=== PATIENT | female | born 1965 | race Caucasian/White ===

== ENCOUNTER 2020-11-17 18:46 | Emergency (ER) | payer MEDICARE, SELFPAY ==
--- NOTE | 2020-11-17 19:28 | PC.NURSE ---
Patient states she is leaving, and is not coming back. Patient requests to be moved off the list. Patient left ED with her belongings and ambulated with a steady gait.
== END 2020-11-18 03:15 | disposition left against medical advice (07) ==
PROVIDERS: PCP Internal Medicine
DX: Z53.21 Procedure and treatment not carried out due to patient leaving prior to being seen by health care provider (principal)
CPT/HCPCS: 99199

== ENCOUNTER 2020-11-18 11:28 | Inpatient (IN) | payer MEDICARE, SELFPAY ==
[2020-11-18] VITALS (7 sets, daily range): BP systolic 125–131; BP diastolic 83–92; PULSE 76–98; RESP 16–20; TEMP 36.7–37.8; O2SAT 98–100
--- NOTE | ~2020-11-18 | CT_ITS ---
EXAMINATION: CT abdomen pelvis w con EXAM DATE: 11/18/2020 13:50 INDICATION: Right flank pain. TECHNIQUE: Spiral CT of the abdomen and pelvis was performed following intravenous injection of 100 m L Omnipaque 350. Axial, coronal and sagittal images of the abdomen and pelvis were reviewed. The do se-length product (DLP) for this examination was 262.01 mGy-cm. The exposure was tailored according to patient size (auto mA exposure control), and iterative reconstruction (ASIR) was used as additiona l dose reduction technique. There is no prior study for comparison. FINDINGS: There is right adrenal gland lesion measuring 2 cm statistically most likely adenoma but no t meeting density criteria on this examination. There is a smaller similar-appearing left adrenal les ion measuring 1.0 cm. The liver, spleen and pancreas are unremarkable. Gallbladder is unremarkable. No biliary obstruction. Small regions of heterogeneous right renal cortical enhancement, could indicate acute pyelonephritis. Please correlate with urinalysis. There is mild fat stranding surrounding the right kidney and mildl y enhancing urothelium to support this diagnosis. The uterus is not identified and has likely been islas rgically resected. The bladder is unremarkable. There is no retroperitoneal or pelvic lymphadenopat hy. There is mild scattered arteriosclerotic disease. The appendix is normal. The stomach and small bowel are unremarkable. There is expected amount of c olonic stool. No free intraperitoneal gas. The heart is normal in size. There are no pericardial or pleural effusions. The lung bases are unremarkable. Their is mild lumbar dextroscoliosis. There are no osteoblastic or osteolytic lesions identified. IMPRESSION: 1. Right kidney upper UTI and acute pyelonephritis. 2. Bilateral adrenal nodules most likely adenomas. Reviewed, dictated and finalized at location A.
[2020-11-18 11:44] LABS: Basophils Absolute Auto 0.1 K/mm3 (0.0-0.1); Basophils Percent Auto 0.3 % (0.2-1.2); Eosinophils Percent Auto 0.1 % (0-4.4); Hematocrit 44.8 % (37.0-47.0); Hemoglobin 15.1 g/dL (12.0-15.0); Immature Granulocyte Absolute 0.11 K/mm3 (0.00-0.031); Immature Granulocyte Percent A 0.4 % (0-0.5); Lymphocytes Absolute Auto 2.36 K/mm3 (0.9-3.2); Lymphocytes Percent Auto 9.2 % (18.3-44.2); Mean Corpuscular HGB Conc 33.7 g/dl (32-36); Mean Corpuscular Hemoglobin 31.9 pg (26-34); Mean Corpuscular Volume 94.7 fl (80-100); Mean Platelet Volume 9.4 fl (7.4-10.4); Monocytes Absolute Auto 1.6 K/mm3 (0.1-0.6); Monocytes Percent Auto 6.3 % (2.6-8.5); Neutrophils Absolute Auto 21.6 K/mm3 (1.3-6.7); Neutrophils Percent Auto 83.7 % (45.5-73.1); Platelet Count Result 285 k/mm3 (150-375); Red Blood Count 4.73 M/mm3 (4.2-5.4); Red Cell Distribution Width 14.2 % (11.5-14.5); White Blood Count 25.8 K/mm3 (4.5-10.0)
[2020-11-18 11:57] LABS: Alanine Aminotransferase 17 U/L (4-35); Albumin Level 4.3 g/dL (3.5-5.1); Alkaline Phosphatase 121 U/L (38-126); Anion Gap 9 mmol/L (8-16); Aspartate Amino Transferase 35 U/L (14-36); Bilirubin,Total 0.9 mg/dL (0.2-1.3); Blood Urea Nitrogen 12 mg/dL (7-17); Calcium 9.3 mg/dL (8.4-10.2); Carbon Dioxide 23 mmol/L (22-30); Chloride 105 mmol/L (98-107); Estimated CRCL calculation 51 ml/min; Estimated Glomerular Filt Rate > 60; Glucose 153 mg/dL (65-110); Lipase 378 U/L (23-300); Potassium 3.6 mmol/L (3.4-5.0); Sodium 137 mmol/L (137-145)
--- NOTE | 2020-11-18 13:18 | ED.GENADULT ---
HPI - General Adult General Chief complaint: Unspecified Stated complaint: back pain, morgan, vomiting Time Seen by Provider: 11/18/20 13:19 Source: patient Mode of arrival: ambulatory Limitations: no limitations History of Present Illness HPI narrative: Patient is a 55-year-old female complaining of right flank pain, 6 out of 10, aching, accompanied by nausea, vomiting, diarrhea, dysuria and fever x3 days. Patient denies any chest pain, shortness of breath or abdominal pain. Related Data Home Medications Medication Instructions Recorded Confirmed albuterol sulfate 2.5 mg INHALATION Q4H PRN 09/19/20 09/19/20 ibuprofen 800 mg tablet 800 mg PO TID PRN 09/19/20 09/19/20 omega-3 fatty acids 1,000 mg 1,000 mg PO DAILY 09/19/20 09/19/20 capsule trazodone 150 mg tablet 150 mg PO QHS PRN 09/19/20 09/19/20 Allergies Allergy/AdvReac Type Severity Reaction Status Date / Time aspirin Allergy Severe BLEEDING Verified 11/18/20 13:32 cefdinir Allergy Severe Itching Verified 11/18/20 13:32 clindamycin Allergy Severe luis miguel Verified 11/18/20 13:32 alice cydrome codeine Allergy Severe Shortness Verified 11/18/20 13:32 of breath acetaminophen Allergy Intermediate JITTERY Verified 11/18/20 13:32 FEELING, LEGS TWITCHEY COCONUT Allergy Severe HIVES AND Uncoded 11/18/20 13:32 THROAT SWELLING sulfur Allergy Severe Itching Uncoded 11/18/20 13:32 Honey Bee Allergy Mild Anaphylactic Uncoded 11/18/20 13:32 Shock plastic tape AdvReac Severe Rash Uncoded 11/18/20 13:32 Review of Systems Review of Systems: All systems reviewed & are unremarkable except as noted in HPI and below Constitutional: Constitutional: Reports body ache(s), Denies chills, Denies excessive sweating, Reports fatigue, Denies headache(s), Denies lethargy, Reports malaise, Denies weakness and Denies weight loss Eyes: Eyes: Denies blurry vision, Denies change in vision and Denies loss of vision ENT: Denies dizziness, Denies ear discharge, Denies headache(s), Denies lip swelling, Denies epistaxis, Denies nasal congestion, Denies neck pain, Denies throat swelling and Denies tongue swelling Cardiovascular: Cardiovascular: Denies chest pain, Denies chest pain at rest, Denies chest pain with activity, Denies diaphoresis, Denies rapid heart rate, Denies edema, Denies irregular heart rhythm, Denies lightheadedness, Denies palpitations, Denies dyspnea and Denies dyspnea on exertion Respiratory: Respiratory: Denies chest congestion, Denies cough, Denies hemoptysis, Denies dyspnea and Denies dyspnea on exertion Gastrointestinal: Gastrointestinal: Denies abdominal pain, Denies melena, Denies hematochezia and Denies hematemesis Musculoskeletal: Musculoskeletal: Denies abnormal gait, Denies deformity, Denies joint swelling, Denies limited range of motion, Denies neck pain and Denies numbness Neurologic: Denies Abnormal speech present, Denies abnormal gait, Denies confusion, Denies dizziness, Denies headache(s), Denies focal weakness, Denies loss of vision, Denies numbness, Denies Other visual disturbances, Denies Sensory deficit (Neuro) and Denies weakness Psychiatric: Psychiatric: Denies confusion, Denies depression, Denies auditory hallucinations, Denies homicidal ideation and Denies suicidal ideation Endocrine: Endocrine: Denies cold intolerance, Denies excessive sweating, Denies heat intolerance and Denies palpitations Hematologic/Lymphatic: Hematologic/Lymphatic: Denies easy bleeding and Denies easy bruising Allergic/Immunologic: Allergic/Immunologic: Denies lip swelling, Denies throat swelling and Denies tongue swelling PMFSH Past Medical History Medical History Arthritis Borderline diabetes Bronchial asthma Bulging discs Depression Migraines Surgical History Surgical History H/O abdominal hysterectomy H/O removal of cyst H/
[2020-11-18 14:21] LABS: Add Urine Microscopic? YES; Appearance Urine Cloudy (Clear); Bacteria Urine Trace /hpf; Bilirubin Urine Negative (Negative); Blood Urine 3+ (Negative); Color Urine Yellow (Yellow); Glucose Urine UA Negative (Negative); Ketones Urine Trace mg/dL (Negative); Leukocyte Esterase Ur 3+ LEU/UL (Negative); Mucus Urine Rare /lpf; Nitrate Urine Negative (Negative); Protein Urine 2+ mg/dL (Negative); RBC Urine 51-75 /hpf (0-2); Specific Grav Ur 1.018 (1.001-1.035); Squamous Epithelial Cell Urine Few /hpf (Few); Urobilinogen Urine Negative mg/dL (<2.0); WBC Urine >75 /hpf
--- NOTE | 2020-11-18 14:33 | ED.GENADULT ---
HPI - General Adult General Chief complaint: Unspecified Stated complaint: back pain, morgan, vomiting Time Seen by Provider: 11/18/20 13:19 Source: patient Mode of arrival: ambulatory Limitations: no limitations Related Data Home Medications Medication Instructions Recorded Confirmed albuterol sulfate 2.5 mg INHALATION Q4H PRN 09/19/20 09/19/20 ibuprofen 800 mg tablet 800 mg PO TID PRN 09/19/20 09/19/20 omega-3 fatty acids 1,000 mg 1,000 mg PO DAILY 09/19/20 09/19/20 capsule trazodone 150 mg tablet 150 mg PO QHS PRN 09/19/20 09/19/20 Allergies Allergy/AdvReac Type Severity Reaction Status Date / Time aspirin Allergy Severe BLEEDING Verified 11/18/20 13:32 cefdinir Allergy Severe Itching Verified 11/18/20 13:32 clindamycin Allergy Severe luis miguel Verified 11/18/20 13:32 alice cydrome codeine Allergy Severe Shortness Verified 11/18/20 13:32 of breath acetaminophen Allergy Intermediate JITTERY Verified 11/18/20 13:32 FEELING, LEGS TWITCHEY COCONUT Allergy Severe HIVES AND Uncoded 11/18/20 13:32 THROAT SWELLING sulfur Allergy Severe Itching Uncoded 11/18/20 13:32 Honey Bee Allergy Mild Anaphylactic Uncoded 11/18/20 13:32 Shock plastic tape AdvReac Severe Rash Uncoded 11/18/20 13:32 PMFSH Past Medical History Medical History Arthritis Borderline diabetes Bronchial asthma Bulging discs Depression Migraines Surgical History Surgical History H/O abdominal hysterectomy H/O removal of cyst H/O tooth extraction H/O tubal ligation Family History Family History Father Alcoholism Heart problem Mother Alcoholism Hypertension Heart problem Sibling Alcoholism Colon cancer Diabetes mellitus Depression Anxiety Heart problem Thyroid disorder Social History Social History Smoking packs per day: 0.5 Smoking cigarettes per day: 10.0 Years smoked: 44 Smoking pack-years: 22.00 Smoking status: Current every day smoker (10 cigarettes daily) Tobacco type: cigarettes Second hand tobacco smoke exposure: Yes Alcohol intake: current Drinks per week: 14 Course Vital Signs Vital signs: Vital Signs Temperature 37.2 C 11/18/20 11:30 Pulse Rate 92 11/18/20 11:30 Respiratory Rate 16 11/18/20 11:30 Blood Pressure 125/89 11/18/20 11:30 Pulse Oximetry 98 11/18/20 11:30 Temperature 37.2 C 11/18/20 11:30 Pulse Rate 82 11/18/20 13:25 Respiratory Rate 16 11/18/20 13:21 Blood Pressure 131/92 H 11/18/20 13:21 Pulse Oximetry 100 11/18/20 13:21 Medical Decision Making Vital Signs Vital Signs: Vital Signs Temperature 37.2 C 11/18/20 11:30 Pulse Rate 92 11/18/20 11:30 Respiratory Rate 16 11/18/20 11:30 Blood Pressure 125/89 11/18/20 11:30 Pulse Oximetry 98 11/18/20 11:30 Temperature 37.2 C 11/18/20 11:30 Pulse Rate 82 11/18/20 13:25 Respiratory Rate 16 11/18/20 13:21 Blood Pressure 131/92 H 11/18/20 13:21 Pulse Oximetry 100 11/18/20 13:21 Lab Data Result diagrams: 11/18/20 11:35 11/18/20 11:35 Labs: Lab Results 11/18/20 11/18/20 11/18/20 Range/Units 11:35 11:35 13:21 WBC 25.8 H (4.5-10.0) K/mm3 RBC 4.73 (4.2-5.4) M/mm3 Hgb 15.1 H (12.0-15.0) g/dL Hct 44.8 (37.0-47.0) % MCV 94.7 (80-100) fl MCH 31.9 (26-34) pg MCHC 33.7 (32-36) g/dl RDW 14.2 (11.5-14.5) % Plt Count 285 (150-375) k/mm3 MPV 9.4 (7.4-10.4) fl Immature Gran % (Auto) 0.4 (0-0.5) % Neut % (Auto) 83.7 H (45.5-73.1) % Lymph % (Auto) 9.2 L (18.3-44.2) % [place] % (Auto) 6.3 (2.6-8.5) % Eos % (Auto) 0.1 (0-4.4) % Baso % (Auto) 0.3 (0.2-1.2) % Lymph # (Auto) 2.36 (0.9-3.2) K/
[2020-11-18] MEDS: SODIUM CHLORIDE 0.9% IV 1,000 ML 999 ML IV CONT (14:46)
[2020-11-18] MEDS: PROMETHAZINE HCL 25 MG/ML AMPUL 12.5 MG IV PUSH (14:46)
[2020-11-18 15:56] LABS: Lactic Acid Reflex 1.4 mmol/L (0.7-2.1)
[2020-11-18] MEDS: LACTATED RINGERS 1,000 ML 125 ML IV CONT (17:21)
[2020-11-18] MEDS: HYDROmorphone HCL INJ (*CRX) 1 MG/ML SYR 0.5 MG IV PUSH (17:22)
--- NOTE | 2020-11-18 17:27 | ADMGEN ---
This patient, Colleen Hurd, was admitted to Medical Room 243-01. Patient/family oriented to hospital policies and general routines including ID bracelet, bed and alarms, visiting hours, pain management, procedures, bathroom and other care routines, personal items, smoking policy, room service/diet, and visiting hours. Information on how to activate the Rapid Response Team has been discussed. Patient/Family are encouraged to report perceived risks to care and to ask questions if they do not understand what they are told or what they should do.
--- NOTE | 2020-11-18 17:46 | PM.IMHP ---
H&P: HPI History of Present Illness Date/Time: 11/18/20 17:46 this is a 55-year-old female patient who complained of having nausea and vomiting for the past 3 days. She is also having some abdominal pain and has been taking Advil without any relief. She is also complaining of back pain and headache. Her white count was noted to be 25.8. Neutrophil percentage 83.7. Lipase was 378 most likely from vomiting. The patient was positive for UTI. Abdominal pelvis CT was read as right kidney upper UTI and acute pyelonephritis. Bilateral adrenal nodules mice likely adenomas. The patient was started on Zosyn, Phenergan and IV fluids. The patient is being admitted to inpatient services on the date of service of 11/18/2020. Chief Complaint: nausea vomiting abdominal pain Review of Systems Review of Systems: All systems reviewed & are unremarkable except as noted in HPI and below Constitutional: Constitutional: Reports as per HPI and Reports no additional constitutional complaints Eyes: Eyes: Reports as per HPI and Reports no additional eye complaints ENT: Reports system reviewed and no additional complaints, except as documented and Reports Normal hearing present Cardiovascular: Cardiovascular: Reports no additional cardiovascular complaints Respiratory: Respiratory: Reports no additional respiratory complaints and Reports no additional respiratory complaints Gastrointestinal: Gastrointestinal: Reports as per HPI and Reports no additional gastrointestinal complaints Musculoskeletal: Musculoskeletal: Reports no additional musculoskeletal complaints Integumentary/Breasts: Skin/Breast: Reports system reviewed and no additional complaints, except as docu and Reports as per HPI Neurologic: Reports system reviewed and no additional complaints, except as documented, Reports as per HPI and Reports Normal hearing present Psychiatric: Psychiatric: Reports no additional psychiatric complaints and Reports as per HPI Endocrine: Endocrine: Reports no additional endocrine complaints Hematologic/Lymphatic: Hematologic/Lymphatic: Reports no additional hematologic/lymphatic complaints Allergic/Immunologic: Allergic/Immunologic: Reports no additional allergic/immunologic complaints [facility] Past Medical History Medical History Arthritis Borderline diabetes Bronchial asthma Bulging discs Depression Migraines Surgical History Surgical History (Updated 11/18/20 @ 17:50 by Martha Sutton NP) H/O abdominal hysterectomy H/O breast biopsy right and left H/O removal of cyst H/O tooth extraction H/O tubal ligation Family History Family History Father Alcoholism Heart problem Mother Alcoholism Hypertension Heart problem Sibling Alcoholism Colon cancer Diabetes mellitus Depression Anxiety Heart problem Thyroid disorder Social History Social History (Updated 11/18/20 @ 17:51 by Martha Sutton NP) Social History: the patient has 3 children and she is . She occasionally smokes marijuana. She lives with a couple that she considers her adoptive parents. This patient stated that she smokes a couple cigarettes a day. No alcohol. She is currently unemployed and is on disability. The patient does not have a durable power admitted attorneys and is a full code. Smoking packs per day: 0.5 Smoking cigarettes per day: 10.0 Years smoked: 44 Smoking pack-years: 22.00 Smoking status: Current every day smoker Tobacco type: cigarettes Second hand tobacco smoke exposure: Yes Alcohol intake: current Drinks per week: 2 Substance use type: marijuana Last use: 11/15/20 Spiritual care concerns: No Meds Home Medications and Allergies Home Medications Medication Instructions Recorded Confirmed Type albuterol sulfate 2.5 mg INHALATION Q4H PRN 09/19/20 11/18/20 History albuterol sulfate 90 mcg/act
[2020-11-18] MEDS: PANTOPRAZOLE SODIUM IV 40 MG VIAL IV PUSH (20:06)
[2020-11-18] MEDS: GABAPENTIN 300 MG CAPSULE 600 MG PO (20:07)
[2020-11-18] MEDS: ALBUTEROL SULFATE NEB 2.5 MG/0.5 ML INH (21:37)
[2020-11-19] VITALS (12 sets, daily range): BP systolic 110–146; BP diastolic 73–87; PULSE 71–102; RESP 16–24; TEMP 36.2–37.2; O2SAT 94–100; BMI 25.9
[2020-11-19] MEDS: LACTATED RINGERS 1,000 ML 125 ML IV CONT ×3 (00:24→23:57)
[2020-11-19] MEDS: SUMAtriptan SUCCINATE 25 MG TABLET PO (01:23)
[2020-11-19] MEDS: IPRATROPIUM BR 0.02% INH SOLN 0.5 MG/2.5 ML VIAL (03:24)
[2020-11-19] MEDS: ALBUTEROL SULFATE NEB 2.5 MG/3 ML INH INHALATION ×4 (03:24→21:10)
[2020-11-19] MEDS: HYDROmorphone HCL INJ (*CRX) 1 MG/ML SYR 0.5 MG IV PUSH ×2 (03:43→08:58)
[2020-11-19 05:36] LABS: Alanine Aminotransferase 15 U/L (4-35); Albumin Level 3.5 g/dL (3.5-5.1); Alkaline Phosphatase 102 U/L (38-126); Anion Gap 4 mmol/L (8-16); Aspartate Amino Transferase 28 U/L (14-36); Bilirubin,Total 0.8 mg/dL (0.2-1.3); Blood Urea Nitrogen 10 mg/dL (7-17); Calcium 8.4 mg/dL (8.4-10.2); Carbon Dioxide 26 mmol/L (22-30); Chloride 107 mmol/L (98-107); Estimated CRCL calculation 51 ml/min; Estimated Glomerular Filt Rate > 60; Glucose 140 mg/dL (65-110); Lactate Dehydrogenase 495 U/L (313-618); Lipase 59 U/L (23-300); Magnesium 1.8 mg/dL (1.6-2.3); Potassium 3.3 mmol/L (3.4-5.0); Sodium 137 mmol/L (137-145)
[2020-11-19 05:41] LABS: Lactic Acid Reflex 0.9 mmol/L (0.7-2.1)
[2020-11-19 05:44] LABS: Basophils Percent Auto 0.3 % (0.2-1.2); Eosinophils Percent Auto 0.1 % (0-4.4); Hematocrit 38.7 % (37.0-47.0); Immature Granulocyte Absolute 0.04 K/mm3 (0.00-0.031); Immature Granulocyte Percent A 0.3 % (0-0.5); Lymphocytes Absolute Auto 1.57 K/mm3 (0.9-3.2); Lymphocytes Percent Auto 11.2 % (18.3-44.2); Mean Corpuscular HGB Conc 33.6 g/dl (32-36); Mean Corpuscular Hemoglobin 31.4 pg (26-34); Mean Corpuscular Volume 93.5 fl (80-100); Mean Platelet Volume 10.2 fl (7.4-10.4); Monocytes Percent Auto 7.1 % (2.6-8.5); Neutrophils Absolute Auto 11.4 K/mm3 (1.3-6.7); Platelet Count Result 219 k/mm3 (150-375); Red Blood Count 4.14 M/mm3 (4.2-5.4); Red Cell Distribution Width 14.2 % (11.5-14.5)
[2020-11-19 06:30] LABS: Thyroid Stimulating Hormone Reflex 0.625 uIU/mL (0.465-4.68)
[2020-11-19] MEDS: FLUoxetine HCL 20 MG CAPSULE 60 MG PO (08:58)
[2020-11-19] MEDS: GABAPENTIN 300 MG CAPSULE 600 MG PO ×2 (08:58→18:04)
[2020-11-19] MEDS: OMEGA 3 POLYUNSAT FATTY ACIDS 1 GM CAP PO (08:58)
[2020-11-19] MEDS: PANTOPRAZOLE SODIUM IV 40 MG VIAL IV PUSH ×2 (08:59→21:00)
[2020-11-19] MEDS: POTASSIUM CHLORIDE 20 MEQ TABLET 40 MEQ PO (09:04)
--- NOTE | 2020-11-19 13:44 | PM.IMPN ---
Progress Note: A&P Assessment and Plan (1) Acute pyelonephritis: Code(s): N10 - Acute pyelonephritis Status: Acute Assessment and Plan: CT of A/P-->right kidney upper UTI and acute pyelonephritis; bilateral adrenal nodules most likely adenomas Continue with IV Zosyn Continue IVF Follow BC, UC Supportive care with antiemetics and analgesics (2) Asthma: Code(s): J45.909 - Unspecified asthma, uncomplicated Status: Acute Assessment and Plan: Continue with home dose of albuterol (3) Depression: Code(s): F32.9 - Major depressive disorder, single episode, unspecified Status: Acute Assessment and Plan: Continue with her home dose of medication of Prozac (4) Migraines: Code(s): G43.909 - Migraine, unspecified, not intractable, without status migrainosus Status: Acute Assessment and Plan: Continue with some a Triptan Subjective Date/time seen: 11/19/20 13:44 Interval history: pt seen and evaluated; labs, vs, and diagnostic reports reviews; feels better than yesterday Review of Systems Review of Systems: All systems reviewed & are unremarkable except as noted in HPI and below Exam Const: General: no acute distress, alert and awake Orientation/consciousness: patient oriented x3 HENMT: Head: normocephalic and atraumatic Ears: hearing grossly normal bilaterally and external ears normal Face and sinus: face symmetric Mouth: Yes Normal oral and palatal mucosa present Eyes: Pupils: Equal, round and reactive pupils present EOM: EOMs intact bilaterally Neck: Neck: full ROM, trachea midline and no JVD Thyroid: thyroid normal Chest: Chest palpation & inspection: normal inspection of the chest Resp: Effort & Inspection: normal respiratory effort Auscultation: clear to auscultation bilaterally Cardio: Jugular venous distension: no JVD Rate: regular rate Rhythm: regular rhythm Heart sounds: S1 normal heart sound present and S2 normal heart sound present GI: Inspection: normal to inspection GI Palp: Yes Soft to palpation Percussion: Yes normal to percussion Auscultation: normal bowel sounds : General: Yes CVA tenderness Skin: General skin exam: normal color Rashes: no rashes Neuro: General: patient oriented x3 and CN's II-XI intact bilaterally Cranial nerves: Yes Equal, round and reactive pupils present Speech: normal speech Psych: Appearance: grossly normal Affect: normal affect Judgement: Good judgement present (Psych) Objective Data Vital Signs Vital Signs: Vital Signs - 24 hr 11/18/20 17:06 11/18/20 21:48 11/18/20 22:00 Temperature 37.8 C H Pulse Rate 98 91 Respiratory Rate 20 20 Blood Pressure 126/84 126/83 Pulse Oximetry 98 11/18/20 23:12 11/19/20 03:27 11/19/20 03:45 Temperature 36.7 C Pulse Rate 102 H 100 Respiratory Rate 24 H 22 H Blood Pressure Pulse Oximetry 11/19/20 06:00 11/19/20 09:25 11/19/20 09:36 Temperature 36.2 C L Pulse Rate 71 76 85 Respiratory Rate 20 18 16 Blood Pressure 110/73 Pulse Oximetry 99 94 Intake/Output Intake/Output: Intake & Output 11/16/20 11/17/20 11/18/20 11/19/20 23:59 23:59 23:59 23:59 Intake Total 1100 2500 Output Total 700 Balance 1100 1800 Meds/Results Medications: Active Medications Generic Name Dose Route Start Last Admin Trade Name Freq PRN Reason Stop Dose Admin Albuterol 2.5 mg 11/18/20 20:00 11/19/20 09:25 Albuterol Sulfate Neb 2.5 Mg/3 Ml Inh INHALATION 2.5 mg Q6HRT SARAH Administration Fish Oil 1 gm 11/19/20 09:00 11/19/20 08:58 [place] 3 Polyunsat Fatty Acids 1 Gm Cap PO 1 gm DAILY SARAH Administration Fluoxetine HCl 60 mg 11/19/20 09:00 11/19/20 08:58 Fluoxetine Hcl 20 Mg Capsule PO 60 mg DAILY SARAH Administration Gabapentin 600 mg 11/18/20 17:00 11/19/20 08:58 Gabapentin 300 Mg Capsule PO 600 mg BID SARAH Administration Hydromorphone HCl 0.5 mg 11/18/20 14:35 09
[2020-11-19] MEDS: ONDANSETRON INJ 4 MG/2 ML VIAL IV PUSH (15:09)
[2020-11-20] VITALS (10 sets, daily range): BP systolic 113–132; BP diastolic 88–90; PULSE 63–99; RESP 16–20; TEMP 36.3–37.4; O2SAT 96–100
[2020-11-20 04:51] LABS: Hematocrit 36.2 % (37.0-47.0); Mean Corpuscular HGB Conc 33.1 g/dl (32-36); Mean Corpuscular Hemoglobin 31.9 pg (26-34); Mean Corpuscular Volume 96.3 fl (80-100); Mean Platelet Volume 9.4 fl (7.4-10.4); Platelet Count Result 168 k/mm3 (150-375); Red Blood Count 3.76 M/mm3 (4.2-5.4); Red Cell Distribution Width 14.2 % (11.5-14.5); White Blood Count 7.4 K/mm3 (4.5-10.0)
[2020-11-20 05:01] LABS: Anion Gap 4 mmol/L (8-16); Blood Urea Nitrogen 9 mg/dL (7-17); Calcium 8.6 mg/dL (8.4-10.2); Carbon Dioxide 28 mmol/L (22-30); Chloride 106 mmol/L (98-107); Estimated CRCL calculation 51 ml/min; Estimated Glomerular Filt Rate > 60; Glucose 127 mg/dL (65-110); Potassium 3.5 mmol/L (3.4-5.0); Sodium 138 mmol/L (137-145)
[2020-11-20] MEDS: PANTOPRAZOLE SODIUM IV 40 MG VIAL IV PUSH ×2 (08:00→21:00)
[2020-11-20] MEDS: OMEGA 3 POLYUNSAT FATTY ACIDS 1 GM CAP PO (08:00)
[2020-11-20] MEDS: GABAPENTIN 300 MG CAPSULE 600 MG PO ×2 (08:01→16:58)
[2020-11-20] MEDS: FLUoxetine HCL 20 MG CAPSULE 60 MG PO (08:01)
[2020-11-20] MEDS: ALBUTEROL SULFATE NEB 2.5 MG/3 ML INH INHALATION ×3 (09:43→20:07)
--- NOTE | 2020-11-20 11:44 | PM.IMPN ---
Progress Note: A&P Assessment and Plan (1) Acute pyelonephritis: Code(s): N10 - Acute pyelonephritis Status: Acute Assessment and Plan: CT of A/P-->right kidney upper UTI and acute pyelonephritis; bilateral adrenal nodules most likely adenomas Continue with IV Zosyn Continue IVF BC NGTD UC--> Escherichia Coli Supportive care with antiemetics and analgesics (2) Asthma: Code(s): J45.909 - Unspecified asthma, uncomplicated Status: Acute Assessment and Plan: Continue with home dose of albuterol (3) Depression: Code(s): F32.9 - Major depressive disorder, single episode, unspecified Status: Acute Assessment and Plan: Continue with her home dose of medication of Prozac (4) Migraines: Code(s): G43.909 - Migraine, unspecified, not intractable, without status migrainosus Status: Acute Assessment and Plan: Continue with some a Triptan Additional Plan if no growth on blood culture tomorrow; home on oral antibiotics Subjective Date/time seen: 11/20/20 11:44 Interval history: pt seen and evaluated; labs, vs, and diagnostic reports reviews; clinically improving better than yesterday Review of Systems Review of Systems: All systems reviewed & are unremarkable except as noted in HPI and below Exam Const: General: no acute distress, alert and awake Orientation/consciousness: patient oriented x3 HENMT: Head: normocephalic and atraumatic Ears: hearing grossly normal bilaterally and external ears normal Face and sinus: face symmetric Mouth: Yes Normal oral and palatal mucosa present Eyes: Pupils: Equal, round and reactive pupils present EOM: EOMs intact bilaterally Neck: Neck: full ROM, trachea midline and no JVD Thyroid: thyroid normal Chest: Chest palpation & inspection: normal inspection of the chest Resp: Effort & Inspection: normal respiratory effort Auscultation: clear to auscultation bilaterally Cardio: Jugular venous distension: no JVD Rate: regular rate Rhythm: regular rhythm Heart sounds: S1 normal heart sound present and S2 normal heart sound present GI: Inspection: normal to inspection Auscultation: normal bowel sounds : General: Yes CVA tenderness Back/Spine/Pelvis: Back: CVA tenderness Skin: General skin exam: normal color Rashes: no rashes Neuro: General: patient oriented x3 and CN's II-XI intact bilaterally Cranial nerves: Yes Equal, round and reactive pupils present Speech: normal speech Psych: Appearance: grossly normal Affect: normal affect Judgement: Good judgement present (Psych) Objective Data Vital Signs Vital Signs: Vital Signs - 24 hr 11/19/20 13:58 11/19/20 15:13 11/19/20 15:20 Temperature 37.2 C Pulse Rate 89 88 89 Respiratory Rate 18 18 18 Blood Pressure 146/84 H Pulse Oximetry 100 11/19/20 19:34 11/19/20 21:10 11/19/20 21:12 Temperature 36.9 C Pulse Rate 85 84 84 Respiratory Rate 16 18 Blood Pressure 130/87 Pulse Oximetry 97 96 11/19/20 21:16 11/20/20 03:42 11/20/20 09:45 Temperature 36.3 C L Pulse Rate 86 87 77 Respiratory Rate 18 17 20 Blood Pressure 132/88 Pulse Oximetry 97 96 11/20/20 09:52 Temperature Pulse Rate 67 Respiratory Rate 20 Blood Pressure Pulse Oximetry Intake/Output Intake/Output: Intake & Output 11/17/20 11/18/20 11/19/20 11/20/20 23:59 23:59 23:59 23:59 Intake Total 1100 4200 860 Output Total 1600 900 Balance 1100 2600 -40 Meds/Results Medications: Active Medications Generic Name Dose Route Start Last Admin Trade Name Shaunq PRN Reason Stop Dose Admin Albuterol 2.5 mg 11/18/20 20:00 11/20/20 09:43 Albuterol Sulfate Neb 2.5 Mg/3 Ml Inh INHALATION 2.5 mg Q6HRT SARAH Administration Fish Oil 1 gm 11/19/20 09:00 11/20/20 08:00 [place] 3 Polyunsat Fatty Acids 1 Gm Cap PO 1 gm DAILY SARAH Administration Fluoxetine HCl 60 mg 11/19/20 09:00 11/20/20 08:01 Fluoxetine Hcl 20 Mg Capsule PO
[2020-11-20] MEDS: ONDANSETRON INJ 4 MG/2 ML VIAL IV PUSH (14:48)
[2020-11-20] MEDS: HYDROmorphone HCL INJ (*CRX) 1 MG/ML SYR 0.5 MG IV PUSH (18:10)
[2020-11-21 03:22] VITALS: BP 139/79; PULSE 62; RESP 16; TEMP 36.6; O2SAT 98
[2020-11-21 05:57] LABS: Hematocrit 35.5 % (37.0-47.0); Hemoglobin 11.6 g/dL (12.0-15.0); Mean Corpuscular HGB Conc 32.7 g/dl (32-36); Mean Corpuscular Hemoglobin 31.4 pg (26-34); Mean Corpuscular Volume 96.2 fl (80-100); Platelet Count Result 172 k/mm3 (150-375); Red Blood Count 3.69 M/mm3 (4.2-5.4); White Blood Count 7.8 K/mm3 (4.5-10.0)
[2020-11-21 06:23] LABS: Anion Gap 7 mmol/L (8-16); Blood Urea Nitrogen 7 mg/dL (7-17); Calcium 8.4 mg/dL (8.4-10.2); Carbon Dioxide 27 mmol/L (22-30); Chloride 105 mmol/L (98-107); Estimated CRCL calculation 57 ml/min; Estimated Glomerular Filt Rate > 60; Glucose 108 mg/dL (65-110); Potassium 3.1 mmol/L (3.4-5.0); Sodium 139 mmol/L (137-145)
[2020-11-21] MEDS: FLUoxetine HCL 20 MG CAPSULE 60 MG PO (08:34)
[2020-11-21] MEDS: GABAPENTIN 300 MG CAPSULE 600 MG PO (08:35)
[2020-11-21] MEDS: OMEGA 3 POLYUNSAT FATTY ACIDS 1 GM CAP PO (08:35)
[2020-11-21] MEDS: PANTOPRAZOLE SODIUM IV 40 MG VIAL IV PUSH (08:35)
[2020-11-21] MEDS: POTASSIUM CHLORIDE 20 MEQ TABLET 40 MEQ PO (11:06)
--- NOTE | 2020-11-21 13:00 | PM.DS ---
DS: Admitting Diagnosis Discharge Date 11/21/20 Admitting Diagnosis 11/21/20 DS: Discharge Diagnosis Discharge Diagnosis (1) Acute pyelonephritis: Code(s): N10 - Acute pyelonephritis Status: Acute (2) Asthma: Code(s): J45.909 - Unspecified asthma, uncomplicated Status: Acute (3) Depression: Code(s): F32.9 - Major depressive disorder, single episode, unspecified Status: Acute (4) Migraines: Code(s): G43.909 - Migraine, unspecified, not intractable, without status migrainosus Status: Acute (5) Adrenal nodule: Code(s): E27.8 - Other specified disorders of adrenal gland Status: Acute DS: Summary Hospital Course Hospital Course: Patient is a 55-year-old female who presented emergency room on 11/18/2020 for right flank pain, nausea, vomiting, dysuria and diarrhea. Vitals in the ER were temperature 37.2? C, pulse 92, respiratory rate 16, blood pressure 125/89, pulse ox 98 on room air. Initial white blood cell count 25.8, hemoglobin 15.1, hematocrit 44.8, platelets 285. BMP within normal limits with the exception of glucose of 153. UA suspicious for UTI. CT of the abdomen pelvis showed right upper UTI and acute pyelonephritis. Also showed bilateral adrenal nodules which are most likely adenomas. Patient was admitted to the hospitalist service and started on Zosyn. Her urine culture grew E coli. The patient's symptoms improved throughout her stay and her blood cultures have no growth to date and will be monitored until finalized. The day of discharge the patient was feeling much better and ready to go. Her urine culture was sensitive to Augmentin and she has no history of penicillin allergies. She had slight hypokalemia the day of discharge which was supplemented and expected to resolve on its own with her increased appetite. Her white blood cell count had normalized. She was educated about the worrisome signs and symptoms to come back to emergency room for and was discharged in stable condition. Status at Discharge Functional status at discharge: independent ambulation Time Spent with Patient Time attestation: Total time spent providing and/or coordinating discharge services: 38 minutes Exam Narrative: General: Well developed well nourished patient in NAD HEENT: normocephalic Neck: supple Neuro: Alert and oriented x 4 CV:RRR Resp:CTA Abd: Soft, non distended. No pain to palpation. Positive bowel sounds Extremities: No swelling, erythema, or pain to palpation. Back: No CVA tenderness DS: Data Data Completed and Pending Labs on day of discharge: Preliminary micro results at discharge 11/18/20 14:58 Blood Culture - Preliminary Blood 11/18/20 15:41 Blood Culture - Preliminary Blood Discharge Plan Discharge Attending physician on discharge: Chilo Becker Discharging Clinician: Maite Starkey Patient Disposition: Home, Self-Care Activity: as tolerated Diet: regular Discharge Instructions: -please note your medications have changed. Take all of your antibiotics even if you start to feel better -follow up with your primary care physician in 1-2 weeks about this stay -worrisome signs and symptoms to come back to emergency room for: Chest pain, shortness of breath, progressive significant weakness, fevers 100.4 or greater, or any other worrisome symptom Patient Instructions: Antibiotic Form Stand Alone Forms: General Discharge Information Follow-up/Referrals: Kannan Aguirre DO [Primary Care Provider] - 1 Week Discharge Medications: New amoxicillin-pot clavulanate [Augmentin] 500-125 mg tablet 1 tablet PO Q12H 7 Days Qty: 14 RF: 0 Saccharomyces boulardii [Florastor] 250 mg capsule 250 mg PO BID 7 Days Qty: 14 RF: 0 Continued albuterol sulfate 2.5 mg /3 mL (0.083 %) solution for nebulization 2.5 mg inhalation Q4H PRN (Reason: Shortness Of Breath) RF: 0 omega-3 fatty acids [Fish Oi
--- NOTE | 2020-11-28 10:55 | PC.NURSE ---
Blood cx are negative
== END 2020-11-21 12:25 | disposition home or self-care (01) | DRG 690 ==
LOC: ANHED 15:09 → ANH2MED 11-20 07:56
PROVIDERS: Emergency Medicine; Nurse Practitioner; Nurse Practitioner Adult Health; Admitting Provider Internal Medicine; Emergency Provider Emergency Medicine; PCP Internal Medicine; Visit Provider Physician Assistant
DX: N10 Acute pyelonephritis (principal); B96.20 Unspecified Escherichia coli [E. coli] as the cause of diseases classified elsewhere; F32.9 Major depressive disorder, single episode, unspecified; G43.909 Migraine, unspecified, not intractable, without status migrainosus; E27.8 Other specified disorders of adrenal gland; J45.909 Unspecified asthma, uncomplicated; F17.210 Nicotine dependence, cigarettes, uncomplicated; M19.90 Unspecified osteoarthritis, unspecified site; Z90.710 Acquired absence of both cervix and uterus
CPT/HCPCS: 36415; 74177; 80048; 80053; 81001; 82728; 83605; 83615; 83690; 83735; 84443; 85025; 85027; 87040; 87077; 87086; 87088; 87186; 94640; 96365; 99285; A9270; C9113; J1170; J2405; J2543; J2550; J7030; J7120; Q9967

== ENCOUNTER 2020-12-23 13:48 | Emergency (ER) | payer MEDICARE, SELFPAY ==
[2020-12-23] VITALS (18 sets, daily range): BP systolic 115–142; BP diastolic 91–110; PULSE 59–78; RESP 11–21; TEMP 36.8; O2SAT 96–100
--- NOTE | ~2020-12-23 | CT_ITS ---
EXAMINATION: CT abdomen pelvis w con DATE: 12/23/2020 15:44 INDICATION: Right abdomen pain and fever. Recent pyelonephritis. Evaluate for abscess. TECHNIQUE: Computed tomography (CT) of the abdomen and pelvis was performed with 100 cc Omnipaque 350 intravenous contrast. The dose-length product was 272.66 mGy-cm. Automated exposure control and iter ative reconstruction technique were employed. COMPARISON: CT dated 11/18/2020. FINDINGS: There is mild emphysema. Heart size normal. No significant pleural or pericardial effusion. No significant vascular abnormality. Stable bilateral adrenal nodules, likely benign adenomas. The l iver, spleen, pancreas, and kidneys are unremarkable. Interval resolution of right perinephric edema. No significant urothelial enhancement on the current study. No abnormal enhancement of the kidneys. Bladder is decompressed. No abnormal pelvic masses or fluid collections. No free air or free fluid. T here is moderate lumbar spondylosis. IMPRESSION: 1. Interval resolution of right pyelonephritis. No abscess identified. Reviewed, dictated and finalized at location A.
[2020-12-23] MEDS: SODIUM CHLORIDE 0.9% IV 1,000 ML 999 ML IV CONT (14:29)
[2020-12-23 15:07] LABS: Basophils Percent Auto 0.4 % (0.2-1.2); Eosinophils Absolute Auto 0.1 K/mm3 (0-0.3); Eosinophils Percent Auto 1.2 % (0-4.4); Hematocrit 43.2 % (37.0-47.0); Hemoglobin 14.2 g/dL (12.0-15.0); Immature Granulocyte Absolute 0.03 K/mm3 (0.00-0.031); Immature Granulocyte Percent A 0.4 % (0-0.5); Lymphocytes Absolute Auto 4.06 K/mm3 (0.9-3.2); Lymphocytes Percent Auto 48.6 % (18.3-44.2); Mean Corpuscular HGB Conc 32.9 g/dl (32-36); Mean Corpuscular Hemoglobin 31.2 pg (26-34); Mean Corpuscular Volume 94.9 fl (80-100); Mean Platelet Volume 9.7 fl (7.4-10.4); Monocytes Absolute Auto 0.6 K/mm3 (0.1-0.6); Monocytes Percent Auto 7.3 % (2.6-8.5); Neutrophils Absolute Auto 3.5 K/mm3 (1.3-6.7); Neutrophils Percent Auto 42.1 % (45.5-73.1); Platelet Count Result 289 k/mm3 (150-375); Red Blood Count 4.55 M/mm3 (4.2-5.4); Red Cell Distribution Width 13.8 % (11.5-14.5); White Blood Count 8.4 K/mm3 (4.5-10.0)
[2020-12-23 15:17] LABS: Add Urine Microscopic? YES; Appearance Urine Cloudy (Clear); Bilirubin Urine Negative (Negative); Blood Urine 1+ (Negative); Color Urine Yellow (Yellow); Glucose Urine UA Negative (Negative); Ketones Urine Negative (Negative); Leukocyte Esterase Ur Negative LEU/UL (Negative); Mucus Urine Rare /lpf; Nitrate Urine Negative (Negative); Protein Urine Negative (Negative); Specific Grav Ur 1.017 (1.001-1.035); Squamous Epithelial Cell Urine Few /hpf (Few); Urobilinogen Urine Negative mg/dL (<2.0); WBC Urine 0-3 /hpf
[2020-12-23 15:19] LABS: Lactic Acid Reflex 0.7 mmol/L (0.7-2.1)
[2020-12-23 15:20] LABS: Alanine Aminotransferase 18 U/L (4-35); Albumin Level 4.3 g/dL (3.5-5.1); Alkaline Phosphatase 96 U/L (38-126); Anion Gap 6 mmol/L (8-16); Aspartate Amino Transferase 28 U/L (14-36); Bilirubin,Total 0.4 mg/dL (0.2-1.3); Blood Urea Nitrogen 9 mg/dL (7-17); Calcium 9.5 mg/dL (8.4-10.2); Carbon Dioxide 23 mmol/L (22-30); Chloride 109 mmol/L (98-107); Estimated CRCL calculation 57 ml/min; Estimated Glomerular Filt Rate > 60; Glucose 102 mg/dL (65-110); Lipase 198 U/L (23-300); Potassium 4.1 mmol/L (3.4-5.0); Sodium 138 mmol/L (137-145)
--- NOTE | 2020-12-23 15:37 | ED.BACK ---
HPI - Back Pain/Injury General Chief Complaint: Urogenital-Female Stated Complaint: KIDNEY PAIN Time Seen by Provider: 12/23/20 13:53 Source: patient History of Present Illness HPI Narrative: Patient presents with bilateral kidney pain . Reports she was recently admitted for a kidney infection reports she was doing a lot better on the right side however her pain is persisted she is now reporting left-sided back pain. Also reports she fell down approximately 2 weeks ago, she denies striking her head or loss of consciousness. Her pain has been present for the past couple weeks. Denies abdominal pain or urinary symptoms. Related Data Home Medications Medication Instructions Recorded Confirmed albuterol sulfate 2.5 mg INHALATION Q4H PRN 09/19/20 12/06/20 omega-3 fatty acids 1,000 mg 1,000 mg PO DAILY 09/19/20 12/06/20 capsule black cohosh 200 mg capsule 200 mg PO DAILY 12/06/20 12/06/20 cardioplegic no.15(induct 8:1) 100 ml PERFUSION 12/06/20 12/06/20 mEq/500 mL (potassium) perfusion Allergies Allergy/AdvReac Type Severity Reaction Status Date / Time aspirin Allergy Severe BLEEDING Verified 12/23/20 13:48 cefdinir Allergy Severe Itching Verified 12/23/20 13:48 clindamycin Allergy Severe luis miguel Verified 12/23/20 13:48 alice cydrome codeine Allergy Severe Shortness Verified 12/23/20 13:48 of breath acetaminophen Allergy Intermediate JITTERY Verified 12/23/20 13:48 FEELING, LEGS TWITCHEY COCONUT Allergy Severe HIVES AND Uncoded 12/23/20 13:48 THROAT SWELLING sulfur Allergy Severe Itching Uncoded 12/23/20 13:48 Honey Bee Allergy Mild Anaphylactic Uncoded 12/23/20 13:48 Shock plastic tape AdvReac Severe Rash Uncoded 12/23/20 13:48 Review of Systems Review of Systems: CONSTITUTIONAL: Denies fever, chills, or sweats. EYES: Denies visual changes, redness, or discharge. ENT: Denies rhinorrhea, congestion, sore throat, or otalgia. CARDIOVASCULAR: Denies chest pain, palpitations, or edema. RESPIRATORY: Denies cough or dyspnea. GASTROINTESTINAL: Denies abdominal pain, nausea, vomiting, or diarrhea. GENITOURINARY: Denies dysuria or hematuria. SKIN: Denies rash or itching. MUSCULOSKELETAL: Denies joint pain, or myalgia. NEUROLOGIC: Denies headache, numbness, dizziness, or weakness. PSYCHIATRIC: Denies anxiety or depression. [facility] Past Medical History Medical History Arthritis Borderline diabetes Bronchial asthma Bulging discs Depression Migraines Surgical History Surgical History H/O abdominal hysterectomy H/O breast biopsy right and left H/O removal of cyst H/O tooth extraction H/O tubal ligation Family History Family History Father Alcoholism Heart problem Mother Alcoholism Hypertension Heart problem Sibling Alcoholism Colon cancer Diabetes mellitus Depression Anxiety Heart problem Thyroid disorder Social History Social History Social History: the patient has 3 children and she is . She occasionally smokes marijuana. She lives with a couple that she considers her adoptive parents. This patient stated that she smokes a couple cigarettes a day. No alcohol. She is currently unemployed and is on disability. The patient does not have a durable power contracts attorney and is a full code. Smoking packs per day: 0.5 Smoking cigarettes per day: 10.0 Years smoked: 44 Smoking pack-years: 22.00 Smoking status: Current every day smoker Tobacco type: cigarettes Second hand tobacco smoke exposure: Yes Alcohol intake: current Drinks per week: 2 Substance use: current Substance use type: marijuana Last use: 11/15/20 Spiritual care concerns: No Exam Narrative: GENERAL: Well-appearing, well-nourished, and
[2020-12-23] MEDS: KETOROLAC 15 MG/ML VIAL (*BKC) IV PUSH (16:34)
== END 2020-12-23 16:53 | disposition home or self-care (01) ==
PROVIDERS: Emergency Provider Emergency Medicine; PCP Internal Medicine
DX: M54.50 Low back pain, unspecified (principal); M19.90 Unspecified osteoarthritis, unspecified site; R73.03 Prediabetes; J45.909 Unspecified asthma, uncomplicated; F17.210 Nicotine dependence, cigarettes, uncomplicated
CPT/HCPCS: 36415; 74177; 80053; 81001; 83605; 83690; 85025; 96361; 96374; 99284; J1885; J7030; Q9967

== ENCOUNTER 2024-03-06 12:45 | Emergency (ER) | payer MEDICARE, SELFPAY ==
--- NOTE | ~2024-03-06 | CT_ITS ---
CT brain wo con Ordering provider: Chasity Steward PA-C History: 58 years Female with . headache, hypertension . Comparison: August 22, 2008 Technique: CT of the head without contrast. Radiation reduction technique utilized. The dose-length product was 529.67 mGy-cm. FINDINGS: BRAIN PARENCHYMA AND CSF SPACES: Hypodense area seen involving the corpus callosum and adjacent white matter in the posterior left frontal area which may be deep white matter ischemic changes but other differential is not excluded and include an infarct versus white matter disease versus low-grade juani gnancy. Follow-up MRI advised. No midline shift, mass effect or hemorrhage. The brain parenchyma and CSF spaces are otherwise normal. VISUALIZED PARANASAL SINUSES: Well aerated. MASTOIDS: Well aerated. BONES: The bones appear intact. SOFT TISSUES: Visualized nasopharynx is normal. Superficial soft tissues are normal. IMPRESSION: Hypodense area seen in the posterior left frontal lobe. Differential as described above. Follow-up MR I is advised. Reviewed, dictated and finalized at location A. CAL STORE MANAGER IMPRESSION: Hypodense area seen in the posterior left frontal lobe. Differential as describ ed above. Follow-up MRI is advised.
--- NOTE | ~2024-03-06 | XR_ITS ---
XR chest 1V portable Ordering provider: Chasity Steward PA-C History: 58 years Female with . weakness . Comparison: April 08, 2008 FINDINGS: MEDIASTINUM: The cardiac silhouette is not enlarged. LUNGS: No infiltrates, effusions or pneumothorax. OTHER: No free air under the diaphragm. IMPRESSION: No acute cardiopulmonary pathology. Reviewed, dictated and finalized at location A. ITAL MANAGER
[2024-03-06 13:13] VITALS: BP 176/114; PULSE 82; RESP 19; TEMP 36.8; O2SAT 99
--- NOTE | 2024-03-06 15:52 | ED_ITS ---
HPI - Headache General Chief Complaint: Headache <Chasity Steward PA-C - Last Filed: 03/07/24 16:27> Stated Complaint: OUT OF MEDS X4D,HEADACHE,NAUSEA <Chasity Steward PA-C - Last Filed: 03/07/24 16:27> Time Seen by Provider: 03/06/24 15:52 <Chasity Steward PA-C - Last Filed: 03/07/24 16:27> Focused HPI: This is a 58 year old female that presents to the ER for headaches, shakiness. Reports she has been out of her medications for about a week. She is out of her Gabapentin 900mg BID, Escitalopram 20mg daily, Lisinopril 5mg daily and Omeprazole 20mg daily. GENERAL: Well-appearing, well-nourished, and in no acute distress. HEAD: Normocephalic, atraumatic. CHEST: Clear to auscultation. ?No respiratory distress. HEART: Regular rate and rhythm.? NEURO: ?Alert and oriented x3. Patient screened in triage and initial orders placed.? ?Additional care and disposition to be based upon?diagnostic testing and treatment. <Chasity Steward PA-C - Last Filed: 03/07/24 16:27> History of Present Illness HPI Narrative: Agree with HPI. Reports occasionally dropping items but no weakness in arms or legs. Has been out of her home medications. Known history of MS. < Yohannes Tena MD - Last Filed: 03/06/24 19:21> Related Data Home Medications: Home Medications ?Medication ?Instructions ?Recorded ?Confirmed ?Last Taken ?Type albuterol sulfate 2.5 mg/3 mL 2.5 mg inhalation Q4H PRN 09/19/20 01/02/21 Unknown History (0.083 %) solution for nebulization Shortness Of Breath omega-3 fatty acids 1,000 mg 1,000 mg PO DAILY 09/19/20 01/02/21 Unknown History capsule (Fish Oil Concentrate) black cohosh 200 mg capsule 200 mg PO DAILY 12/06/20 01/02/21 Unknown History diclofenac potassium 25 mg tablet mg PO DAILY 01/02/21 01/02/21 Unknown History <Chasity Steward PA-C - Last Filed: 03/07/24 16:27> Allergies/Adverse Reactions: Allergies Allergy/AdvReac Type Severity Reaction Status Date / Time aspirin Allergy Severe BLEEDING Verified 03/06/24 17:27 cefdinir Allergy Severe Itching Verified 03/06/24 17:27 clindamycin Allergy Severe luis miguel Verified 03/06/24 17:27 alice cydrome codeine Allergy Severe Shortness Verified 03/06/24 17:27 of breath acetaminophen Allergy Intermediate JITTERY Verified 03/06/24 17:27 FEELING, LEGS TWITCHEY COCONUT Allergy Severe HIVES AND Uncoded 03/06/24 17:27 THROAT SWELLING sulfur Allergy Severe Itching Uncoded 03/06/24 17:27 Honey Bee Allergy Mild Anaphylactic Uncoded 03/06/24 17:27 Shock plastic tape AdvReac Severe Rash Uncoded 03/06/24 17:27 <Chasity Steward PA-C - Last Filed: 03/07/24 16:27> Review of Systems 2 Review of Systems: All systems reviewed & are unremarkable except as noted in HPI and below <Yohannes Tena MD - Last Filed: 03/06/24 19:21> Constitutional: Constitutional: Reports no additional constitutional complaints <Yohannes Tena MD - Last Filed: 03/06/24 19:21> Cardiovascular: Cardiovascular: Reports no additional cardiovascular complaints <Yohannes Tena MD - Last Filed: 03/06/24 19:21> Respiratory: Respiratory: Reports no additional respiratory complaints < Yohannes Tena MD - Last Filed: 03/06/24 19:21> Gastrointestinal: Gastrointestinal: Reports no additional gastrointestinal complaints <Yohannes Tena MD - Last Filed: 03/06/24 19:21> Neurologic: Reports system reviewed and no additional complaints, except as documented <Yohannes Tena MD - Last Filed: 03/06/24 19:21> PMFSH Past Medical History Medical History: Medical History Arthritis Borderline diabetes Bronchial asthma Bulging discs Depression Migraines <Chasity Steward PA-C - Last Filed: 03/07/24 16:27> Surgical History Surgical History: Surgical History H/O abdominal hysterectomy H/O breast biopsy right and left H/O removal of cyst H/O tooth extraction H/O tubal ligation <Chasity Steward PA-C - Last Filed: 03/07/24 16:27> Family History Family History: Family History Father Alcoholism Heart problem Mother Alcoholism Hypertension Heart problem Sibling Alcoholism Colon cancer Diabetes mellitus Depression Anxiety Heart problem Thyroid disorder <Chasity Steward PA-C - Last Filed: 03/07/24 16:27> Social History Social History: Social History Social History: the patient has 3 children and she is . She occasionally smokes marijuana. She lives with a couple that she considers her adoptive parents. This patient stated that she smokes a couple cigarettes a day. No alcohol. She is currently unemployed and is on disability. The patient does not have a durable power computational chemist and is a full code. Smoking packs per day: 0.5 Smoking cigarettes per day: 10.0 Years smoked: 44 Smoking pack-years: 22.00 Smoking status: Current every day smoker Tobacco type: cigarettes Second hand tobacco smoke exposure: Yes Alcohol intake: current Drinks per week: 2 Substance use: current Substance use type: marijuana Last use: 11/15/20 Spiritual care concerns: No <Chasity Steward PA-C - Last Filed: 03/07/24 16:27> Exam 2 Narrative: GENERAL: Well-appearing, well-nourished, and in no acute distress. HEAD: Normocephalic, atraumatic. EYES: PERRL and EOMI. ENT: Mucous membranes moist. CHEST: Clear to auscultation. No respiratory distress. HEART: Regular rate and rhythm. Normal peripheral pulses. ABDOMEN: Soft, nontender, nondistended EXTREMITIES: Normal range of motion. No edema. SKIN: Warm, dry, no rash. NEURO: Alert and oriented x3. No upper or lower extremity drift. Normal finger-nose testing and [id number] testing. Cranial nerves symmetric. No expressive aphasia or dysarthria. Gross sensation intact in upper and lower extremities. PSYCH: Normal mood and affect. <Yohannes Tena MD - Last Filed: 03/06/24 19:21> Course Course Emergency Course: Headache resolved with Toradol and gabapentin. Discharge home with medication refill. Neurology consulted and she only needs outpatient follow-up. Patient likely had an exacerbation of her migraine and not MS. Old MRI result with lesion same area. She also may have had a withdrawal headache. <Yohannes Tena MD - Last Filed: 03/06/24 19:21> Vital Signs Vital signs: Vital Signs Temperature 98.2 F 03/06/24 13:13 Pulse Rate 82 03/06/24 13:13 Respiratory Rate 19 03/06/24 13:13 Blood Pressure 176/114 H 03/06/24 13:13 Pulse Oximetry 99 03/06/24 13:13 Oxygen Delivery Room Air 03/06/24 13:13 Temperature 98.0 F 03/06/24 19:39 Pulse Rate 58 L 03/06/24 19:39 Respiratory Rate 18 03/06/24 19:39 Blood Pressure 178/90 H 03/06/24 19:39 Pulse Oximetry 97 03/06/24 19:39 Oxygen Delivery Room Air 03/06/24 13:13 <Chasity Steward PA-C - Last Filed: 03/07/24 16:27> Vital Signs Temperature 98.2 F 03/06/24 13:13 Pulse Rate 82 03/06/24 13:13 Respiratory Rate 19 03/06/24 13:13 Blood Pressure 176/114 H 03/06/24 13:13 Pulse Oximetry 99 03/06/24 13:13 Oxygen Delivery Room Air 03/06/24 13:13 Temperature 98.0 F 03/06/24 19:39 Pulse Rate 58 L 03/06/24 19:39 Respiratory Rate 18 03/06/24 19:39 Blood Pressure 178/90 H 03/06/24 19:39 Pulse Oximetry 97 03/06/24 19:39 Oxygen Delivery Room Air 03/06/24 13:13 <Yohannes Tena MD - Last Filed: 03/06/24 19:21> MDM - Headache Lab Data Result diagrams: 03/06/24 17:20 03/06/24 17:20 <Chasity Steward PA-C - Last Filed: 03/07/24 16:27> Labs: Lab Results 03/06/24 03/06/24 03/06/24 Range/Units 17:20 17:35 17:36 WBC 11.7 H (4.5-10.0) K/mm3 RBC 4.60 (4.2-5.4) M/mm3 Hgb 14.6 (12.0-15.0) g/dL Hct 43.2 (37.0-47.0) % MCV 93.9 (80-100) fl MCH 31.7 (26-34) pg MCHC 33.8 (32-36) g/dl RDW 13.9 (11.5-14.5) % Plt Count 294 (150-375) k/mm3 MPV 9.2 (7.4-10.4) fl Immature Gran % (Auto) 0.2 (0-0.5) % Neut % (Auto) 55.3 (45.5-73.1) % Lymph % (Auto) 35.0 (18.3-44.2) % Humphreys % (Auto) 8.4 (2.6-8.5) % Eos % (Auto) 0.8 (0-4.4) % Baso % (Auto) 0.3 (0.2-1.2) % Lymph # (Auto) 4.11 H (0.9-3.2) K/mm3 Humphreys # (Auto) 1.0 H (0.1-0.6) K/mm3 Eos # (Auto) 0.1 (0-0.3) K/mm3 Baso # (Auto) 0.0 (0.0-0.1) K/mm3 Abs Immat Gran (auto) 0.02 (0.00-0.031) K/mm3 Absolute Neuts (auto) 6.5 (1.3-6.7) K/mm3 Absolute Nucleated RBC 0.000 (0.0-0.012) K/mm3 Nucleated RBC % 0.0 (0.0-0.2) % PT 13.3 (11.1-14.7) Seconds INR 1.0 APTT 25.2 (22.3-36.8) Seconds Sodium 139 (137-145) mmol/L Potassium 3.3 L (3.4-5.0) mmol/L Chloride 108 H (98-107) mmol/L Carbon Dioxide 25 (22-30) mmol/L Anion Gap 6 (4-12) mmol/L BUN 9 (7-17) mg/dL Creatinine 0.75 (0.7-1.0) mg/dL Estim Creat Clear Calc 54 ml/min Estimated GFR > 60 (59 - ) Glucose 102 (65-110) mg/dL POC Capillary Glucose 91 (65-105) mg/dl Calcium 9.3 (8.4-10.2) mg/dL Total Bilirubin 0.7 (0.2-1.3) mg/dL AST 24 (14-36) U/L ALT 18 (6-35) U/L Alkaline Phosphatase 107 (38-126) U/L Troponin I < 0.012 (0.000-0.034) ng/mL Total Protein 7.0 (6.3-8.2) g/dL Albumin 4.2 (3.5-5.1) g/dL POC Urine HCG, Qual Negative (Negative) <Chasity Steward PA-C - Last Filed: 03/07/24 16:27> Lab Results 03/06/24 03/06/24 03/06/24 Range/Units 17:20 17:35 17:36 WBC 11.7 H (4.5-10.0) K/mm3 RBC 4.60 (4.2-5.4) M/mm3 Hgb 14.6 (12.0-15.0) g/dL Hct 43.2 (37.0-47.0) % MCV 93.9 (80-100) fl MCH 31.7 (26-34) pg MCHC 33.8 (32-36) g/dl RDW 13.9 (11.5-14.5) % Plt Count 294 (150-375) k/mm3 MPV 9.2 (7.4-10.4) fl Immature Gran % (Auto) 0.2 (0-0.5) % Neut % (Auto) 55.3 (45.5-73.1) % Lymph % (Auto) 35.0 (18.3-44.2) % Humphreys % (Auto) 8.4 (2.6-8.5) % Eos % (Auto) 0.8 (0-4.4) % Baso % (Auto) 0.3 (0.2-1.2) % Lymph # (Auto) 4.11 H (0.9-3.2) K/mm3 Humphreys # (Auto) 1.0 H (0.1-0.6) K/mm3 Eos # (Auto) 0.1 (0-0.3) K/mm3 Baso # (Auto) 0.0 (0.0-0.1) K/mm3 Abs Immat Gran (auto) 0.02 (0.00-0.031) K/mm3 Absolute Neuts (auto) 6.5 (1.3-6.7) K/mm3 Absolute Nucleated RBC 0.000 (0.0-0.012) K/mm3 Nucleated RBC % 0.0 (0.0-0.2) % PT 13.3 (11.1-14.7) Seconds INR 1.0 APTT 25.2 (22.3-36.8) Seconds Sodium 139 (137-145) mmol/L Potassium 3.3 L (3.4-5.0) mmol/L Chloride 108 H (98-107) mmol/L Carbon Dioxide 25 (22-30) mmol/L Anion Gap 6 (4-12) mmol/L BUN 9 (7-17) mg/dL Creatinine 0.75 (0.7-1.0) mg/dL Estim Creat Clear Calc 54 ml/min Estimated GFR > 60 (59 - ) Glucose 102 (65-110) mg/dL POC Capillary Glucose 91 (65-105) mg/dl Calcium 9.3 (8.4-10.2) mg/dL Total Bilirubin 0.7 (0.2-1.3) mg/dL AST 24 (14-36) U/L ALT 18 (6-35) U/L Alkaline Phosphatase 107 (38-126) U/L Troponin I < 0.012 (0.000-0.034) ng/mL Total Protein 7.0 (6.3-8.2) g/dL Albumin 4.2 (3.5-5.1) g/dL POC Urine HCG, Qual Negative (Negative) <Yohannes Tena MD - Last Filed: 03/06/24 19:21> Imaging Data Radiologist's impression: ITS Impressions Head CT 03/06/24 16:43 IMPRESSION: Hypodense area seen in the posterior left frontal lobe. Differential as described above. Follow-up MRI is advised. Chest X-Ray 03/06/24 17:58 IMPRESSION: No acute cardiopulmonary pathology. <Yohannes Tena MD - Last Filed: 03/06/24 19:21> Critical Care Time Critical Care Time Critical Care Time: No <Chasity Steward PA-C - Last Filed: 03/07/24 16:27> Discharge Plan Discharge Clinical Impression: Medication refill Headache Qualifiers: Headache type: unspecified Headache chronicity pattern: acute headache I ntractability: not intractable Qualified Code(s): R51.9 - Headache, unspecified <Chasity Steward PA-C - Last Filed: 03/07/24 16:27> Patient Disposition: Home, Self-Care <Chasity Steward PA-C - Last Filed: 03/07/24 16:27> Condition: Stable <Chasity Steward PA-C - Last Filed: 03/07/24 16:27> Instructions: General Headache (ED) <Chasity Steward PA-C - Last Filed: 03/07/24 16:27> Additional Instructions: Try to stay well hydrated at home. Please return to the emergency department if you develop worsening of your headache or a new headache which is severe, associated with vision changes, associated with neck stiffness or fever, or if it is different from any other headache that you have had before. Return to the emergency department if you develop numbness, weakness or tingling or problems with coordination, or if you develop severe nausea and vomiting and are unable to keep down fluids at home. <Chasity Steward PA-C - Last Filed: 03/07/24 16:27> Patient Language: Hong Konger <Chasity Steward PA-C - Last Filed: 03/07/24 16:27> Prescriptions: New gabapentin 600 mg tablet 600 mg PO BID Qty: 60 0RF lisinopril 5 mg tablet 5 mg PO DAILY Qty: 30 0RF escitalopram oxalate 20 mg tablet 20 mg PO DAILY Qty: 30 0RF No Action black cohosh 200 mg capsule 200 mg PO DAILY albuterol sulfate 2.5 mg /3 mL (0.083 %) solution for nebulization 2.5 mg inhalation Q4H PRN (Reason: Shortness Of Breath) omega-3 fatty acids [Fish Oil Concentrate] 1,000 mg capsule 1,000 mg PO DAILY albuterol sulfate [Proventil HFA] 90 mcg/actuation HFA aerosol inhaler 1 puff inhalation Q4H PRN (Reason: shortness of breath or wheezing) Qty: 8.5 5RF ondansetron HCl [Zofran] 4 mg tablet 4 mg PO DAILY PRN (Reason: nausea and vomiting) Qty: 90 1RF diclofenac potassium 25 mg tablet PO DAILY trazodone 150 mg tablet 150 mg PO QHS PRN (Reason: insomnia) Qty: 30 2RF cyclobenzaprine 10 mg tablet 10 mg PO TID PRN (Reason: muscle spasm) Qty: 30 0RF gabapentin 600 mg tablet 600 mg PO BID Qty: 180 1RF escitalopram oxalate 20 mg tablet 20 mg PO DAILY Qty: 90 1RF <Chasity Steward PA-C - Last Filed: 03/07/24 16:27> Follow-up/Referrals: Raul Ryan MD [Physician] - 1 Week Choco Mota MD [Physician] - 2 Weeks PHYSICIAN,SPACE SYSTEMS OPERATIONS CRAFTSMAN [Primary Care Provider] - <Chasity Steward PA-C - Last Filed: 03/07/24 16:27>
[2024-03-06 15:54] VITALS: BP 139/105; PULSE 86; RESP 18; O2SAT 99
--- NOTE | 2024-03-06 17:07 | ECG_ITS ---
Test Date: 2024-03-06 17:45:53 Measurements Intervals [place] Rate: 64 P: 40 MD: 171 QRS: 32 QRSD: 94 T: 40 QT: 402 QTc: 416 Interpretive Statements SINUS RHYTHM MINIMAL VOLTAGE CRITERIA FOR LVH, CONSIDER NORMAL VARIANT [MEETS CRITERIA IN ONE OF: R(aVL), S(V1), R(V5), R(V5/V6)+S(V1)] ABNORMAL ECG No previous ECG available for comparison Electronically Signed On 03-07-2024 08:19:28 CHIPPER OPERATOR by Marcell Price M.D.
[2024-03-06 17:23] VITALS: BP 142/110; PULSE 74; RESP 20; O2SAT 98
[2024-03-06 17:25] LABS: Basophils Percent Auto 0.3 % (0.2-1.2); Eosinophils Absolute Auto 0.1 K/mm3 (0-0.3); Eosinophils Percent Auto 0.8 % (0-4.4); Hematocrit 43.2 % (37.0-47.0); Hemoglobin 14.6 g/dL (12.0-15.0); Immature Granulocyte Absolute 0.02 K/mm3 (0.00-0.031); Immature Granulocyte Percent A 0.2 % (0-0.5); Lymphocytes Absolute Auto 4.11 K/mm3 (0.9-3.2); Mean Corpuscular HGB Conc 33.8 g/dl (32-36); Mean Corpuscular Hemoglobin 31.7 pg (26-34); Mean Corpuscular Volume 93.9 fl (80-100); Mean Platelet Volume 9.2 fl (7.4-10.4); Monocytes Percent Auto 8.4 % (2.6-8.5); Neutrophils Absolute Auto 6.5 K/mm3 (1.3-6.7); Neutrophils Percent Auto 55.3 % (45.5-73.1); Platelet Count Result 294 k/mm3 (150-375); Red Cell Distribution Width 13.9 % (11.5-14.5); White Blood Count 11.7 K/mm3 (4.5-10.0)
[2024-03-06 17:37] LABS: Partial Thromboplastin Time 25.2 Seconds (22.3-36.8); Prothrombin Time 13.3 Seconds (11.1-14.7)
[2024-03-06 17:38] LABS: BEDSIDEPREGUCG Negative (Negative)
[2024-03-06 17:38] LABS: Alanine Aminotransferase 18 U/L (6-35); Albumin Level 4.2 g/dL (3.5-5.1); Alkaline Phosphatase 107 U/L (38-126); Anion Gap 6 mmol/L (4-12); Aspartate Amino Transferase 24 U/L (14-36); Bilirubin,Total 0.7 mg/dL (0.2-1.3); Blood Urea Nitrogen 9 mg/dL (7-17); Calcium 9.3 mg/dL (8.4-10.2); Carbon Dioxide 25 mmol/L (22-30); Chloride 108 mmol/L (98-107); Estimated CRCL calculation 54 ml/min; Estimated Glomerular Filt Rate > 60; Glucose 102 mg/dL (65-110); Potassium 3.3 mmol/L (3.4-5.0); Sodium 139 mmol/L (137-145)
[2024-03-06 17:43] LABS: Glucose Point of Care 91 mg/dl (65-105)
[2024-03-06 17:50] LABS: Troponin I < 0.012 ng/mL (0.000-0.034)
[2024-03-06] MEDS: KETOROLAC 15 MG/ML VIAL (*BKC) IV PUSH (17:58)
[2024-03-06] MEDS: SODIUM CHLORIDE 0.9% IV 1,000 ML 999 ML IV CONT (17:58)
[2024-03-06] MEDS: GABAPENTIN 300 MG CAPSULE 600 MG PO (17:58)
[2024-03-06] MEDS: ONDANSETRON INJ 4 MG/2 ML VIAL IV PUSH (17:58)
[2024-03-06 19:39] VITALS: BP 178/90; PULSE 58; RESP 18; TEMP 36.7; O2SAT 97
== END 2024-03-06 19:44 | disposition home or self-care (01) ==
PROVIDERS: Physician Assistant; Emergency Provider Emergency Medicine
DX: R51.9 Headache, unspecified (principal); J45.909 Unspecified asthma, uncomplicated; F17.210 Nicotine dependence, cigarettes, uncomplicated; Z76.0 Encounter for issue of repeat prescription; R73.03 Prediabetes
CPT/HCPCS: 36415; 70450; 71045; 80053; 81025; 82948; 84484; 85025; 85610; 85730; 93005; 96361; 96374; 96375; 99284; A9270; J1885; J2405; J7030

== ENCOUNTER 2024-03-21 13:46 | Emergency (ER) | payer MEDICARE, SELFPAY ==
--- NOTE | ~2024-03-21 | XR_ITS ---
EXAM: XR knee LT min 4V DATE: 03/21/2024 14:20 HISTORY: pain medial side of knee knot posterior knee . COMPARISON: None available. FINDINGS: Decreased mineralization. No fracture or dislocation. No lytic or blastic lesion. Mild ost eoarthritis. No erosion or periosteal change. Soft tissues within normal limits. IMPRESSION: No acute osseous finding in the left knee. Reviewed, dictated and finalized at location [facility]
--- OUTSIDE RECORDS SUMMARY | 2024-03-21 13:48 | XMS_ITS | CONTINUITY OF CARE DOCUMENT ---
Author Name yoav, texser Address Unknown Organization [facility] Address [address] [address] [place] [address] Phone [phone] Care Team Providers Care Magazine Filler Name Role Phone Steffany Klein MD Unavailable HERRERA WOODS MD Unavailable [phone] HERRERA WOODS MD Unavailable PROBLEMS Condition Status Date Provider Notes Chest pain stress nuclear at [facility] 06/10 ef 73% active Steffany Klein MD Family History of Hypertension: active ? Tree Klein MD Asthma active Steffany Klein MD Tobacco abuse active Steffany Klein MD ENCOUNTERS Date Type Provider Location Encounter Diagnosis - In-person encounter Office Visit Steffany Klein MD [place] [facility] Chest pain stress nuclear at [facility] 06/10 ef 73%Family History of Hypertension:Asthm aTobacco abuse VITAL SIGNS Date Observation Value Provider Body Mass Index (Ratio) 22.14 kg/m2 Tree Klein MD blood pressure, cuff size regular Maddy Yepez blood pressure, diastolic 70 mm[Hg] Maddy Yepez blood pressure, systolic 110 mm[Hg] Lindsey Yepez oxygen saturation, oximetry 98 % Ashanti Yepez respiratory rate E&M 16 /min Ashanti Yepez pulse rate 91 /min Ashanti Yepez weight E&M 125 [lb_av] Ashanti Yepez height E&M 63 [in_i] Ashanti Yepez ALLERGIES Allergy Name Onset Date Reaction Criticality Status COCONUT High Criticality active BEE STINGS High Criticality active PLASTIC High Criticality active CLINDAMYCIN High Criticality active ASPIRIN High Criticality active CEFDINIR High Criticality active SULFA Low Criticality active CODEINE Low Criticality active HISTORY OF MEDICATION USE Medication Status Instructions Dates Provider Indications Com ments [facility] IBUPROFEN IB 200 MG ORAL TABLET active as needed Ashanti Yepez ALBUTEROL SULFATE (2.5 MG/3ML) 0.083% INHALATION NEBULIZATION SOLUTION active as needed Ashanti Yepez EPIPEN 2-BERTHA 0.3 MG/0.3ML INJECTION SOLUTION AUTO-INJECTOR active as needed Ashanti Yepez VENTOLIN HFA 108 (90 Base) MCG/ACT INHALATION AEROSOL SOLUTION active as needed Ashanti Yepez PROVENTIL HFA 108 (90 Base) MCG/ACT INHALATION AEROSOL SOLUTION active as needed Ashanti Yepez ZOFRAN 4 MG ORAL TABLET active as needed Ashanti Yepez IMITREX 25 MG ORAL TABLET active as needed Ashanti Yepez TRAZODONE HCL 150 MG ORAL TABLET active as needed Ashanti Yepez TRAMADOL HCL 50 MG ORAL TABLET active Ashanti Yepez #90, 30 days supply, Filled 02/26/2016 FLUOXETINE HCL 20 MG ORAL TABLET active Ashanti Yepez #60, 30 days supply, Filled 05/26/2016 SOCIAL HISTORY Date Observation Value Provider social history reviewed E&M revi ewed - no changes required Steffany Klein MD alcohol use, average drinks per day social Ashanti Yepez alcohol use yes Ashanti Yepez smoking history, tot al pack/day 10 cigarettes Ashanti Yepez cigarette use yes Ashanti Yepez smoking status Current every day smoker Pete Yepez FAMILY HISTORY Family Member Condition Mother Family History of Hy pertension: Mother Family History of Hy pertension: Mother Family History of CV A or Stroke: Father Family History of CV A or Stroke: Mother Family History of Hy pertension: INSURANCE PROVIDERS Payer name Policy type / Coverage type [place] red libertarian [employer] HMO [id number] ADVANCE DIRECTIVES Name Date DISCUSSED - NO DECISION MADE TREATMENT PLAN Date Name Performer Cardiology [facility] follow up To olga Klein MD [facility]iology Hospital follow up To olga Klein MD Cardiology Hospital follow up To olga Klein MD HISTORY OF PROCEDURES Procedure Date Procedure Name Provider Procedure Notes S tatus SNOMED-CT: [id number] Current Medications Documented Steffany Klein MD completed
--- OUTSIDE RECORDS SUMMARY | 2024-03-21 13:48 | XMS_ITS | Clinical Summary ---
Author Organization [facility] Address [address] [place] [address]. [place] [address] [place] [address] Care Team Providers Care Store Stocker Name Role Phone Kannan Aguirre Primary Care Provider [phone] Allergies Active Allergy Reactions Criticality Noted Date Comments Aspirin GI Upset,GI Bleed 05/17/2021 Cefdinir Hives,Itching 05/17/2021 Clindamycin Shortness of Breath,Rash High 05/17/2021 Codeine Shortness of Breath,Rash High 05/17/2021 Sulfa Antibiotics Rash,Collins Conrad Syndrome Low 05/17/2021 Aden Conrad Syndrome Tape Rash Low 05/17/2021 Medications albuterol sulfate HFA 108 (90 Base) MCG/ACT inhaler INHALE 1 PUFF BY MOUTH EVERY 4 HOURS NEEDED FOR SHORTNESS OF BREATH FOR WHEEZING 2 Active FLUoxetine 20 MG capsule Take 60 mg by mouth daily. 1 Active gabapentin 600 MG tablet Take 600 mg by mouth 2 (two) times daily. 2 Active ondansetron 4 MG tablet Take 4 mg by mouth as needed. 1 Active SUMAtriptan 25 MG tablet Take 25 mg by mouth as needed. 1 Active traZODone 150 MG tablet Take 150 mg by mouth nightly as needed. 1 Active ibuprofen 800 MG tablet Take 800 mg by mouth every 6 (six) hours as needed for Pain. Active albuterol (2.5 MG/3ML) 0.083% nebulizer solution Take 2.5 mg by nebulization every 6 (six) hours as needed for Wheezing. Active omega-3 fatty acid 500 MG capsule Take 500 mg by mouth daily. Active Multiple Vitamins-Minera ls (HAIR/SKIN/NAIL S/BIOTIN) Tab Take 1 tablet by mouth. Active Black Cohosh 40 MG Cap Take 1 capsule by mouth daily. Active ASPIRIN 81 MG chewable tablet Chew 1 tablet (81 mg total) by mouth daily. 30 tablet 2 Active Active Problems Problem Noted Date Diagnosed Date Headache 05/18/2021 Family History Medical History Relation Comments Stroke Mother Relation Status Comments Mother Social History Tobacco Use Types Packs/Day Years Used Date Smoking Tobacco: Every Day Cigarettes 0.5 40 Smokeless Tobacco: Never Alcohol Use Standard Drinks/Week Comments Not Currently 0 (1 standard drink = 0.6 oz pur e alcohol) Comments No Sex and Gender Information Value Date Recorded Sex Assigned at Not on file Legal Sex Female 3:39 PM PACS SPECIALIST Gender Identity Not on file Sexual Orientation Not on file Last Filed Vital Signs Vital Sign Reading Time Taken Comments Blood Pressure 140/82 05/19/2021 11:48 AM CDT Pulse 72 05/19/2021 11:48 AM CDT Temperature 36.8 ??C (98.3 ??F) 05/19/2021 11:48 AM C DT Respiratory Rate 18 05/19/2021 11:48 AM CDT Oxygen Saturation 96% 05/19/2021 5:44 AM CDT Inhaled Oxygen Concentration - - Weight 62.2 kg (137 lb 2 oz) 05/19/2021 5:44 AM CDT Height 160 cm (5' 3 ) 05/18/2021 2:25 AM CDT Body Mass Index 24.29 05/18/2021 2:25 AM CDT Plan of Treatment Health Maintenance Due Date Last Done Comments Colorectal Cancer Screening Colonoscopy (10 Years) 1964 Annual Physical 09/13/1967 Hepatitis C 1982 DTaP, Tdap and Td Vaccines ( 1 - Tdap) 09/13/1983 Mammogram Screening 2004 Zoster Vaccines (1 of 2) 2014 Pneumococcal Vaccine: Pediatrics (0 to 5 Years) and At-Risk Patients (6 to 64 Years) (2 of 2 - PPSV23 or PCV20) 01/18/2016 11/23/2015 COVID-19 Vaccine (4 - 2023-2 5 season) 2023 06/17/2020, 05/27/2020, 05/25/2020 Influenza Adult (#1) 2023 03/26/2017, 11/23/2015 Meningococcal B Vaccine Aged Out No l onger eligible based on patient's age to complete this topic Meningococcal Vaccine Aged Out No brenda lexii eligible based on patient's age to complete this topic RSV Immunizations Under 20 Months Aged Out No longer eligible b ased on patient's age to complete this topic Goals Goal Patient Goal Type Associated Problems Recent Progress Patient-Stated? Author Health - patient able to perform ADLs independently General No Debbi Lin, RN Insurance HUMAN Advance Directives * Full Code (Latest Code Status on File) Date Activated Date Inactivated Comments 05/18/2021 9:56 AM 05/19/2021 7:34 PM Care Teams Store Stocker Relationship Specialty Start Date End Date Kannan Aguirre DO [address] [facility] [address] [address] PCP - General INTERNAL MEDICINE 05/17/21
--- OUTSIDE RECORDS SUMMARY | 2024-03-21 13:48 | XMS_ITS | Clinical Summary ---
Author Organization [facility] Address [address] [place] [address] Care Team Providers Care Rn Palliative Care Name Role Phone Patti Springer AMARA-PRESCRIPTION EYEGLASS MAKER Primary Care Provider [phone] Source Comments [facility],non-owned Affiliates and Associated Physician Practices is amultiple site organization consisting of ambulatory clinics and hospital sitesin [place], [place], [place] and [place]. This disclosure is being madepursuant to the Care Everywhere program and may not contain all information available regarding this patient. Last updated 17.[facility] Allergies Active Allergy Reactions Criticality Noted Date Comments Aspirin 03/18/2014 Cefdinir Urticaria,Itching High 03/21/2015 Clindamycin 03/18/2014 Coconut Oil Anaphylaxis High 07/29/2016 Codeine 03/18/2014 Skin Adhesives Rash Medium 03/08/2022 Sulfa Drugs 03/18/2014 Acetaminophen 03/18/2014 Medications * Be aware that medications may not be up to date on this document. Alwaysverify current medications with the patient. Medication Sig Dispensed Refills Start Date End Date Status doxycycline (VIBRAMYCIN) 100 MG capsule Take 1 Cap by mouth 2 times daily. 14 Cap 0 03/18/2014 Active Additional Information Patient not taking.Reported on 03/08/2022 albuterol HFA (PROVENTIL;VENTOLIN ;PROAIR) 108 (90 BASE) MCG/ACT inhaler Inhale 2 Puffs by mouth every 4 hours as needed for Shortness of Breath or Wheezing. 1 Inhaler 1 03/18/2014 Active predniSONE (DELTASONE) 20 MG tablet Take 2 Tabs by mouth once daily. 10 Tab 0 03/18/2014 Active Additional Information Patient not taking.Reported on 03/08/2022 azithromycin (ZITHROMAX) 250 MG tablet Take 2 tablets(500 mg) by mouth today, then one tablet(250 mg) by mouth for the next four days 6 Tab 0 03/23/2014 Active Additional Information Patient not taking.Reported on 03/08/2022 methylPREDNISolone (MEDROL DOSEPAK) 4 MG tablet Take by mouth as directed. 21 Packet 0 03/23/2014 Active Additional Information Patient not taking.Reported on 03/08/2022 albuterol HFA (PROVENTIL;VENTOLIN ;PROAIR) 108 (90 BASE) MCG/ACT inhaler Inhale 2 Puffs by mouth every 4 hours as needed for Shortness of Breath or Wheezing. 1 Inhaler 1 03/23/2014 Active traMADol (ULTRAM) 50 MG tablet Take 1 Tab by mouth every 4 hours as needed for Pain. 20 Tab 0 04/28/2014 Active cyclobenzaprine (FLEXERIL) 10 MG tablet Take 1 Tab by mouth 3 times daily as needed for Muscle Spasms. 10 Tab 0 04/28/2014 Active traMADol (ULTRAM) 50 MG tablet Take 1 tablet by mouth every 8 hours as needed for Pain 10 tablet 12/22/2016 Active aspirin EC (Ecotrin) 81 MG tablet Take 1 (one) tablet by mouth once daily 04/24/2021 Active Biotin 10 MG Take by mouth once daily Active Black Cohosh 40 MG Take 1 capsule by mouth once daily Active cyclobenzaprine (Flexeril) 10 MG tablet Take 1 (one) tablet by mouth every 8 hours as needed 10/05/2021 Active escitalopram (Lexapro) 20 MG tablet Take 1 (one) tablet by mouth once daily 01/04/2022 Active FLUoxetine (PROzac) 20 MG capsule Take 3 (three) capsules by mouth once daily 08/23/2020 Active gabapentin (Neurontin) 300 MG capsule Take 2 (two) capsules by mouth 2 times daily 01/01/2022 Active gabapentin (Neurontin) 600 MG tablet Take 1 (one) tablet by mouth 2 times daily 03/09/2021 Active ibuprofen (Motrin) 800 MG tablet Take 1 (one) tablet by mouth every 6 hours as needed Active lisinopril (Prinivil; Zestril) 5 MG tablet Take 1 (one) tablet by mouth once daily 01/01/2022 Active meloxicam (Mobic) 15 MG tablet Take 1 (one) tablet by mouth once daily 01/01/2022 Active Multiple Vitamins-Minerals (Hair/Skin/Nails/Bi otin) TABS Take 1 (one) tablet by mouth Active [place]-3 Fatty Acids ([place]-3 Fish Oil) 1000 MG capsule Take by mouth once daily Active ondansetron (Zofran) 4 MG tablet TAKE 1 TABLET BY MOUTH EVERY 8 HOURS NEEDED FOR NAUSEA OR VOMITING 01/04/2022 Active SUMAtriptan (Imitrex) 25 MG tablet Take 1 (one) tablet by mouth as needed 09/22/2020 Active traZODone (Desyrel) 150 MG tablet Take 1 (one) tablet by mouth at bedtime 09/15/2021 Active dicyclomine (Bentyl) 10 MG capsule TAKE 1 CAPSULE BY MOUTH 4 TIMES DAILY 03/22/2022 Active amLODIPine (Norvasc) 5 MG tablet Take 1 (one) tablet by mouth once daily 30 tablet 11/20/2022 Active Social History Tobacco Use Types Packs/Day Years Used Date Smoking Tobacco: Every Day Cigarettes Tobacco Cessation:Ready to Q uit: Not Asked; Counseling Given: Not Answered Alcohol Use Standard Drinks/Week Comments Yes 0 (1 standard drink = 0.6 oz pur e alcohol) 1-2 drinks per week Sex and Gender Information Value Date Recorded Sex Assigned at Not on file Gender Identity Not on file Sexual Orientation Not on file Last Filed Vital Signs Vital Sign Reading Time Taken Comments Blood Pressure 160/95 11/20/2022 4:33 PM CDT Pulse 50 11/20/2022 4:33 PM CDT Temperature 36.6 ??C (97.9 ??F) 11/20/2022 4:35 PM CD T Respiratory Rate 13 11/20/2022 4:33 PM CDT Oxygen Saturation 97% 11/20/2022 1:43 PM CDT Inhaled Oxygen Concentration - - Weight 51.7 kg (114 lb) 11/20/2022 1:43 PM CDT Height 160 cm (5' 3 ) 11/20/2022 1:43 PM CDT Body Mass Index 20.19 11/20/2022 1:43 PM CDT Plan of Treatment Health Maintenance Due Date Last Done Comments COLOGUARD (AGES 45-75) - COL ON CA SCREENING 1964 COLON MONITORING 1964 COLONOSCOPY - COLON CA SCREENING 1964 CT COLONOGRAPHY - COLON CA SCREENING 1964 Colorectal Cancer Screening 1964 FIT - COLON CA SCREENING 1964 FLEX SIG - COLON CA SCREENING 1964 LIPID TESTING 1964 MAMMOGRAM 1964 PAP SMEAR 1964 HIV SCREENING 09/13/1979 HEPATITIS C SCREENING 09/08/1982 DTAP/TDAP/TD VACCINES (1 - Tdap) 09/13/1983 HEPATITIS B VACCINE (1 of 3 - 19+ 3-dose series) 09/13/1983 PNEUMOCOCCAL VACCINE 50+ (1 of 2 - PCV) 09/13/1983 PNEUMOCOCCAL VACCINE (1 of 2 - PCV) 09/13/1983 ZOSTER VACCINE (1 of 2) 2014 COVID-19 VACCINE (2 - 2023-2 5 season) 2023 05/25/2020 INFLUENZA VACCINE (#1) 2023 8, 11/23/2015 DEPRESSION SCREENING 02/25/2024 MEDICARE AWV ? CALENDAR YEAR 2024 HIB VACCINE Aged Out No longer eligi ble based on patient's age to complete this topic HPV VACCINE Aged Out No longer eligi ble based on patient's age to complete this topic MENINGOCOCCAL (Group B) VACCINE Aged Out No longer eligible b ased on patient's age to complete this topic MENINGOCOCCAL VACCINE Aged Out No brenda lexii eligible based on patient's age to complete this topic Care Teams Rn Palliative Care Relationship Specialty Start Date End Date Patti Springer, FORMING FIXER-PRESCRIPTION EYEGLASS MAKER PCP - General Nurse Practitioner 03/22/22
--- OUTSIDE RECORDS SUMMARY | 2024-03-21 13:48 | XMS_ITS | Referral Summary ---
Author Organization [email or web address] Address [address] [place] [address] Care Team Providers Care Mechanic General Operational Test Name Role Phone Patti Springer AMARA-CONTINUOUS CHURN BUTTERMAKER Primary Care Provider [phone] Source Comments [facility],non-owned Affiliates and Associated Physician Practices is amultiple site organization consisting of ambulatory clinics and hospital sitesin [place], [place], [place] and [place]. This disclosure is being madepursuant to the Care Everywhere program and may not contain all information available regarding this patient. Last updated 17.[email or web address] Allergies Active Allergy Reactions Criticality Noted Date [...] Take 1 (one) tablet by mouth Active [place]-3 Fatty Acids ([place]-3 Fish Oil) 1000 MG capsule Take by [...] 11/20/2022 1:43 PM CDT Plan of Treatment Not on file Care Teams Mechanic General Operational Test Relationship Specialty Start Date End Date Patti Springer, CASINO ATTENDANT-CONTINUOUS CHURN BUTTERMAKER PCP - General Nurse Practitioner 03/22/22
--- OUTSIDE RECORDS SUMMARY | 2024-03-21 13:48 | XMS_ITS | Patient Health Summary ---
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 This disclosure is being madepursuant to the Care Everywhere program and may not contain all information available regarding this patient. Last updated 17.[facility] Allergies * Aspirin * Cefdinir(Urticaria,Itching) -High Criticality * Clindamycin * Coconut Oil(Anaphylaxis) -High Criticality * Codeine * Skin Adhesives(Rash) -Medium Criticality * Sulfa Drugs * Acetaminophen Medications * Be aware that medications may not be up to date on this document. Alwaysverify current medications with the patient. * doxycycline (VIBRAMYCIN) 100 MG capsule(Started 03/18/2014) Take 1 Cap by mouth 2 times daily. * albuterol HFA (PROVENTIL;VENTOLIN;PROAIR) 108 (90 BASE) MCG/ACT inhaler (Started 03/18/2014) Inhale 2 Puffs by mouth every 4 hours as needed for Shortness of Breath or Wheezing. 1 refill left * predniSONE (DELTASONE) 20 MG tablet(Started 03/18/2014) Take 2 Tabs by mouth once daily. * azithromycin (ZITHROMAX) 250 MG tablet(Started 03/23/2014) Take 2 tablets(500 mg) by mouth today, then one tablet(250 mg) by mouth for the next four days * methylPREDNISolone (MEDROL DOSEPAK) 4 MG tablet(Started 03/23/2014) Take by mouth as directed. * albuterol HFA (PROVENTIL;VENTOLIN;PROAIR) 108 (90 BASE) MCG/ACT inhaler (Started 03/23/2014) Inhale 2 Puffs by mouth every 4 hours as needed for Shortness of Breath or Wheezing. 1 refill left * traMADol (ULTRAM) 50 MG tablet(Started 04/28/2014) Take 1 Tab by mouth every 4 hours as needed for Pain. * cyclobenzaprine (FLEXERIL) 10 MG tablet(Started 04/28/2014) Take 1 Tab by mouth 3 times daily as needed for Muscle Spasms. * traMADol (ULTRAM) 50 MG tablet(Started 12/22/2016) Take 1 tablet by mouth every 8 hours as needed for Pain * aspirin EC (Ecotrin) 81 MG tablet(Started 04/24/2021) Take 1 (one) tablet by mouth once daily * Biotin 10 MG Take by mouth once daily * Black Cohosh 40 MG Take 1 capsule by mouth once daily * cyclobenzaprine (Flexeril) 10 MG tablet(Started 10/05/2021) Take 1 (one) tablet by mouth every 8 hours as needed * escitalopram (Lexapro) 20 MG tablet(Started 01/04/2022) Take 1 (one) tablet by mouth once daily * FLUoxetine (PROzac) 20 MG capsule(Started 08/23/2020) Take 3 (three) capsules by mouth once daily * gabapentin (Neurontin) 300 MG capsule(Started 01/01/2022) Take 2 (two) capsules by mouth 2 times daily * gabapentin (Neurontin) 600 MG tablet(Started 03/09/2021) Take 1 (one) tablet by mouth 2 times daily * ibuprofen (Motrin) 800 MG tablet Take 1 (one) tablet by mouth every 6 hours as needed * lisinopril (Prinivil; Zestril) 5 MG tablet(Started 01/01/2022) Take 1 (one) tablet by mouth once daily * meloxicam (Mobic) 15 MG tablet(Started 01/01/2022) Take 1 (one) tablet by mouth once daily * Multiple Vitamins-Minerals (Hair/Skin/Nails/Biotin) TABS Take 1 (one) tablet by mouth * [place]-3 Fatty Acids ([place]-3 Fish Oil) 1000 MG capsule Take by mouth once daily * ondansetron (Zofran) 4 MG tablet(Started 01/04/2022) TAKE 1 TABLET BY MOUTH EVERY 8 HOURS NEEDED FOR NAUSEA OR VOMITING * SUMAtriptan (Imitrex) 25 MG tablet(Started 09/22/2020) Take 1 (one) tablet by mouth as needed * traZODone (Desyrel) 150 MG tablet(Started 09/15/2021) Take 1 (one) tablet by mouth at bedtime * dicyclomine (Bentyl) 10 MG capsule(Started 03/22/2022) TAKE 1 CAPSULE BY MOUTH 4 TIMES DAILY * amLODIPine (Norvasc) 5 MG tablet(Started 11/20/2022) Take 1 (one) tablet by mouth once daily Social History Tobacco Use Types Packs/Day Years [...] Mass Index 20.19 11/20/2022 1:43 PM CDT Procedures * TROPONIN-I HIGH SENSITIVE REFLEX 1HOUR(Performed 11/20/2022) * CT HEAD WO CONTRAST(Performed 11/20/2022) Performed for Hypertension, unspecified type * COMPREHENSIVE METABOLIC PANEL(Performed 11/20/2022) * CBC W AUTO DIFFERENTIAL(Performed 11/20/2022) * TROPONIN-I HIGH SENSITIVE BASELINE + 1HR(Performed 11/20/2022) * XR CHEST 2VW(Performed 11/20/2022) Performed for Hypertension, unspecified type * CT CHEST ABDOMEN PELVIS W CONT(Performed 03/22/2022) Performed for Abnormal finding on MRI of brain * FL LUMBAR PUNCTURE(Performed 03/08/2022) Performed for Abnormal finding on MRI of brain * CELL COUNT W DIFFERENTIAL CSF(Performed 03/08/2022) Performed for Abnormal finding on MRI of brain * NEUROMYELITIS OPTICA AQP4 IGG CSF W/RFLX(Performed 03/08/2022) Performed for Abnormal finding on MRI of brain * CYTOMEGALOVIRUS QUAL PCR(Performed 03/08/2022) Performed for Abnormal finding on MRI of brain * VERA VIRUS PCR CSF(Performed 03/08/2022) Performed for Abnormal finding on MRI of brain * OLIGOCLONAL BANDS CSF+BLOOD PANEL(Performed 03/08/2022) Performed for Abnormal finding on MRI of brain * LYME DISEASE AB SCREEN CSF(Performed 03/08/2022) Performed for Abnormal finding on MRI of brain * IGG INDEX CSF PANEL(Performed 03/08/2022) Performed for Abnormal finding on MRI of brain * ANGIOTENSIN CONVERTING ENZYME CSF(Performed 03/08/2022) Performed for Abnormal finding on MRI of brain * PROTEIN CSF(Performed 03/08/2022) Performed for Abnormal finding on MRI of brain * GLUCOSE CSF(Performed 03/08/2022) Performed for Abnormal finding on MRI of brain * GRAM STAIN (LAB ORDERED)(Performed 03/08/2022) Performed for Abnormal finding on MRI of brain * CULTURE CSF+GRAM STAIN(Performed 03/08/2022) Performed for Abnormal finding on MRI of brain * HERPES SIMPLEX 1+2 PCR CSF(Performed 03/08/2022) Performed for Abnormal finding on MRI of brain * CRYPTOCOCCUS ANTIGEN CSF(Performed 03/08/2022) Performed for Abnormal finding on MRI of brain * CULTURE CSF+GRAM STAIN(Performed 03/08/2022) Performed for Abnormal finding on MRI of brain * CYTOLOGY NON-TRAINING ADMINISTRATOR PANEL (STL)(Performed 03/08/2022) Performed for Abnormal finding on MRI of brain * TRICHOMONAS RAPID TEST(Performed 12/22/2016) * CHLAMYDIA + GC AMPLIFIED PROBE(Performed 12/22/2016) * URINALYSIS REFLEX MICROSCOPIC REFLEX CULTURE(Performed 12/22/2016) * COMPREHENSIVE METABOLIC PANEL(Performed 03/23/2014) * CBC W AUTO DIFFERENTIAL(Performed 03/23/2014) * XR CHEST 2VW(Performed 03/23/2014) Performed for Acute Nasopharyngitis (Common Cold) * XR CHEST 2VW(Performed 03/18/2014) Performed for Shortness of breath * TROPONIN I(Performed 03/18/2014) * COMPREHENSIVE METABOLIC PANEL(Performed 03/18/2014) * CBC W AUTO DIFFERENTIAL(Performed 03/18/2014) * EKG 12-LEAD(Performed 03/18/2014) Performed for Shortness of breath Results * TROPONIN-I HIGH SENSITIVE REFLEX 1HOUR (11/20/2022 5:56 PM CDT) Pathologist [facility] Troponin I High Sensitive <3 <=14 ng/L 11/20/2022 6:38 PM CDT -[facility] Delta Troponin I HS 11/20/2022 6:38 PM CDT -[facility] Comment:Delta value intentio fredy not calculated. Baseline to 1 hour specimen collection interval exceeded. Blood BLOOD SPECIMEN / Unknown Venipuncture / Unknown 11/20/2022 5:56 PM CDT 11/20/2022 6:09 PM CDT Pramod Euceda MD LAB - CHEMISTRY DEBORA ALMAGUER [facility] Organization Address City/State/ZIP Co de Phone Number [facility] [address] [place] [address] * CT HEAD WO CONTRAST (11/20/2022 2:38 PM CDT) Anatomical Region Laterality Modality Head Computed Tomogra phy 11/20/2022 2:39 PM CDT Impressions 11/20/2022 2:48 PM CDT IMPRESSION: 15 mm focal left frontal periventricular white matter hypodensity may reflect asymmetric chronic small vessel ischemic disease. Correlation with outside imaging would be helpful if available. Otherwise, consider an MRI of the brain for further evaluation if clinically warranted. > Interpreting Provider: Arnulfo Thurston MD on 11/20/2022 2:48 PM Narrative 11/20/2022 2:48 PM CDT PROCEDURE: ??CT HEAD WO CONTRAST, DATE/TIME OF EXAM: ??11/20/2022 2:38 PM, LOCATION ??[facility] INDICATION: I10: Essential (primary) hypertension ADDITIONAL CLINICAL INFORMATION: Ordering Provider Reason For Exam: Technologist Note: ??Intermittent subacute blurry vision, headaches, history of migraines Additional: COMPARISON: None. TECHNIQUE: Noncontrast CT brain was performed utilizing standard protocol. CT dose reduction technique was used, including Automated Exposure Control. FINDINGS: The peripheral soft tissues are unremarkable. An incomplete posterior arch of C1 noted. The skull is intact without abnormal lesion. Paranasal sinuses and mastoid air cells are predominantly clear. There is a 15 mm focal area of left frontal periventricular hypodensity extending superiorly. ??The ventricles and sulci appear normal. The kwong-white differentiation is maintained. The basilar cisterns are patent. There is no acute intracranial hemorrhage, mass effect, or large extra-axial collection. As a standard caveat and not specifically recommended based on the current examination, if patient is clinically able and the results would change clinical management, MRI with diffusion offers increased sensitivity for acute infarction, certain types of hemorrhage (e.g. RAYSHAWN) and potentially mass. Procedure Note Arnulfo Thurston MD - 11/20/2022 PROCEDURE: CT HEAD WO CONTRAST, DATE/TIME OF EXAM: 11/20/2022 2:38 PM, LOCATION [facility] INDICATION: I10: Essential (primary) hypertension ADDITIONAL CLINICAL INFORMATION: Ordering Provider Reason For Exam: Technologist Note: Intermittent subacute blurry vision, headaches,history of migraines Additional: COMPARISON: None. TECHNIQUE: Noncontrast CT brain was performed utilizing standard protocol. CT dose reduction technique was used, including Automated ExposureControl. FINDINGS: The peripheral soft tissues are unremarkable. An incomplete posteriorarch of C1 noted. The skull is intact without abnormal lesion. Paranasal sinuses and mastoid air cells are predominantly clear. There is a 15 mm focal area of left frontal periventricular hypodensity extending superiorly. The ventricles and sulci appear normal. The kwong-white differentiation is maintained. The basilar cisterns arepatent. There is no acute intracranial hemorrhage, mass effect, or large extra-axial collection. As a standard caveat and not specifically recommended based on thecurrent examination, if patient is clinically able and the results would change clinical management, MRI with diffusion offers increased sensitivity for acute infarction, certain types of hemorrhage (e.g. RAYSHAWN) and potentially mass. IMPRESSION: 15 mm focal left frontal periventricular white matter hypodensity may reflect asymmetric chronic small vessel ischemic disease. Correlationwith outside imaging would be helpful if available. Otherwise, consider anMRI of the brain for further evaluation if clinically warranted. > Interpreting Provider: Arnulfo Thurston MD on 11/20/2022 2:48 PM Lashae Garcia PA-C CT ORDERABLES * TROPONIN-I HIGH SENSITIVE BASELINE + 1HR (11/20/2022 2:25 PM CDT) [facility] Troponin I High Sensitive <3 <=14 ng/L 11/20/2022 3:00 PM CDT [facility] Blood BLOOD SPECIMEN / Unknown Venipuncture / Unknown 11/20/2022 2:25 PM CDT 11/20/2022 2:38 PM CDT Pramod Euceda MD [facility] Organization Address City/State/ZIP Co de Phone Number [facility] [address] [place], [place] [id number] * CBC W AUTO DIFFERENTIAL (11/20/2022 2:25 PM CDT) Only the most recent of3 resultswithin the time period is included. Pathologist [facility] WBC 10.6 4.4 - 10.7 x10E9/L 11/20/2022 2:40 PM CDT [facility] WBC Corrected 11/20/2022 2:40 PM CDT [facility] RBC 4.51 3.80 - 5.20 x10E12/L 11/20/2022 2:40 PM CDT [facility] Hemoglobin 14.2 12.0 - 15.6 gm/dL 11/20/2022 2:40 PM CDT [facility] Hematocrit 43.3 35.9 - 45.5 % 11/20/2022 2:40 PM CDT [facility] MCV 96.0 80.7 - 98.3 fl 11/20/2022 2:40 PM CDT [facility] MCH 31.5 26.7 - 34.0 pg 11/20/2022 2:40 PM CDT [facility] MCHC 32.8 30.8 - 35.9 gm/dL 11/20/2022 2:40 PM CDT [facility] Platelet Count 283 153 - 416 x10E9/L 11/20/2022 2:40 PM CDT [facility] RDW-CV 13.0 12.1 - 14.9 % 11/20/2022 2:40 PM CDT [facility] MPV 9.5 9.4 - 12.9 fl 11/20/2022 2:40 PM CDT [facility] Neutrophils % 53.9 44.0 - 73.0 % 11/20/2022 2:40 PM CDT [facility] Lymphocytes % 37.3 20.0 - 43.0 % 11/20/2022 2:40 PM CDT [facility] Monocytes % 6.7 5.0 - 13.0 % 11/20/2022 2:40 PM CDT [facility] Eosinophils % 1.3 0.0 - 6.0 % 11/20/2022 2:40 PM CDT [facility] Basophils % 0.6 0.0 - 2.0 % 11/20/2022 2:40 PM CDT [facility] Immature Granulocytes 0.2 0 - 1 % 11/20/2022 2:40 PM CDT [facility] Neutrophil Absolute 5.68 2.01 - 7.14 x10E9/L 11/20/2022 2:40 PM CDT [facility] Lymphocytes Absolute 3.94 1.07 - 3.94 x10E9/L 11/20/2022 2:40 PM CDT [facility] Monocytes Absolute 0.71 0.26 - 1.07 x10E9/L 11/20/2022 2:40 PM CDT [facility] Eosinophils Absolute 0.14 0 - 0.47 x10E9/L 11/20/2022 2:40 PM CDT [facility] Basophils Absolute 0.06 0 - 0.08 x10E9/L 11/20/2022 2:40 PM CDT [facility] Immature Granulocytes Absolute 0.02 0.00 - 0.06 x10E9/L 11/20/2022 2:40 PM CDT -[facility] nRBC Auto 0 /100 WBC 11/20/2022 2:40 PM CDT -[facility] Blood BLOOD SPECIMEN / Unknown Venipuncture / Unknown 11/20/2022 2:25 PM CDT 11/20/2022 2:38 PM CDT Pramod Euceda MD LAB - HEMATOLOGY ORD ERABLES -[facility] [address] [place] [address] * (ABNORMAL) COMPREHENSIVE METABOLIC PANEL (11/20/2022 2:25 PM CDT) Only the most recent of3 resultswithin the time period is included. Glucose 89 70 - 105 mg/dL 11/20/2022 2:56 PM CDT -[facility] Sodium 143 136 - 145 mmol/L 11/20/2022 2:56 PM CDT [facility] Potassium 3.7 3.5 - 5.1 mmol/L 11/20/2022 2:56 PM CDT -[facility] Chloride 107 98 - 107 mmol/L 11/20/2022 2:56 PM CDT -[facility] CO2 26 22 - 29 mmol/L 11/20/2022 2:56 PM CDT -[facility] Calcium 9.4 8.4 - 10.4 mg/dL 11/20/2022 2:56 PM CDT -[facility] Anion Gap 10 6 - 16 mmol/L 11/20/2022 2:56 PM CDT -[facility] BUN 11 7 - 26 mg/dL 11/20/2022 2:56 PM CDT -[facility] Creatinine 0.85 0.57 - 1.11 mg/dL 11/20/2022 2:56 PM CDT -[facility] Alkaline Phosphatase 88 40 - 150 U/L 11/20/2022 2:56 PM CDT -[facility] ALT 13 0 - 55 U/L 11/20/2022 2:56 PM CDT [facility] AST 20 5 - 34 U/L 11/20/2022 2:56 PM CDT [facility] Protein Total 6.8 6.4 - 8.3 gm/dL 11/20/2022 2:56 PM CDT [facility] Albumin 3.9 3.4 - 5.0 gm/dL 11/20/2022 2:56 PM CDT [facility] Bilirubin Total 0.4 0.2 - 1.2 mg/dL 11/20/2022 2:56 PM CDT [facility] eGFR by CKD-EPI 79(L) >=90 mL/min/1.7 3 m2 11/20/2022 2:56 PM CDT [facility] Blood BLOOD SPECIMEN / Unknown Venipuncture / Unknown 11/20/2022 2:25 PM CDT 11/20/2022 2:38 PM CDT Pramod Euceda MD [facility] Organization Address City/State/ZIP Co de Phone Number -[facility] [address] [place] [address] * XR CHEST PA AND LATERAL (11/20/2022 2:21 PM CDT) Only the most recent of3 resultswithin the time period is included. Anatomical Region Laterality Modality Chest Radiographic Keira ging 11/20/2022 2:26 PM CDT Impressions 11/20/2022 2:29 PM CDT IMPRESSION: No acute cardiopulmonary abnormalities. > Interpreting Provider: Arnulfo Thurston MD on 11/20/2022 2:29 PM Narrative 11/20/2022 2:29 PM CDT PROCEDURE: ??XR CHEST 2VW DATE/TIME OF EXAM: ??11/20/2022 2:21 PM CLINICAL INFORMATION: None relevant/not provided if blank. Indication: I10: Essential (primary) hypertension Additional History: COMPARISON: March 23, 2014 FINDINGS: Frontal and lateral views of the chest demonstrate a normal sized heart and pulmonary vasculature. Chronic interstitial changes noted. No focal consolidation, pleural effusion or pneumothorax. No acute osseous abnormalities. Procedure Note Arnulfo Thurston MD - 11/20/2022 PROCEDURE: XR CHEST 2VW DATE/TIME OF EXAM: 11/20/2022 2:21 PM CLINICAL INFORMATION: None relevant/not provided if blank. Indication: I10: Essential (primary) hypertension Additional History: COMPARISON: March 23, 2014 FINDINGS: Frontal and lateral views of the chest demonstrate a normal sized heartand pulmonary vasculature. Chronic interstitial changes noted. No focal consolidation, pleural effusion or pneumothorax. No acute osseous abnormalities. IMPRESSION: No acute cardiopulmonary abnormalities. > Interpreting Provider: Arnulfo Thurston MD on 11/20/2022 2:29 PM Pramod Euceda MD DIAGNOSTIC IMAGING O RDERABLES * CT CHEST ABDOMEN PELVIS W CONT (03/22/2022 11:53 AM DIRECTOR LEARNING SERVICES) Anatomical Region Laterality Modality Chest, Abdomen, Pelvis Computed Tomography 03/22/2022 12:1 4 PM DIRECTOR LEARNING SERVICES Impressions 03/22/2022 12:31 PM DIRECTOR LEARNING SERVICES IMPRESSION: 1. No mass adenopathy or metastasis is seen in the chest abdomen or pelvis. 2. Probable benign right adrenal adenoma. Repeat noncontrast CT or MRI with and without gadolinium could be helpful for confirmation if still clinically concerned upper primary tumor. 3. Post hysterectomy. 4. Mild ectasia of the ascending aorta > Interpreting Provider: Beka Ervin MD on 03/22/2022 12:31 PM Narrative 03/22/2022 12:31 PM DIRECTOR LEARNING SERVICES PROCEDURE: ??CT CHEST ABDOMEN PELVIS W CONT DATE/TIME OF EXAM: ??03/22/2022 12:02 PM INDICATION: R90.89: Other abnormal findings on diagnostic imaging of central nervous system COMPARISON: None. ADDITIONAL CLINICAL INFORMATION (if provided): CT chest abdomen and pelvis looking for malignancy Ordering Provider Reason For Exam: CONTRAST: ?? IOPAMIDOL 76 % IV SOLN:80 mL TECHNIQUE: CT CHEST ABDOMEN PELVIS W CONT utilizing standard protocol.. CT dose reduction technique was used, including Automated Exposure Control. FINDINGS: There is no breast mass or axillary adenopathy There is no discrete mediastinal or hilar mass or pathologic noncalcified adenopathy. There are a few scattered calcified granulomas in the chest. There is ectasia of the ascending aorta at 4.3 cm. There is no pleural or pericardial effusion. The lungs are clear. There is no pulmonary nodule. Imaging in the upper abdomen shows no evidence of organomegaly. The early arterial enhancement of the liver spleen gallbladder pancreas adrenals and kidneys are relatively normal. There is focal low density enlargement of the right adrenal gland measuring up to 1.4 cm. There is no kidney stone or suspicious solid mass. The abdominal aorta is atherosclerotic but otherwise normal. The urinary bladder is normal. The patient is status post hysterectomy. There is no adnexal mass. The bowel was well opacified and relatively normal. No mass adenopathy inflammatory change or free fluid is seen. There is scoliosis with degenerative change in the lumbar spine predominantly at L3-4 Procedure Note Beka Ervin MD - 03/22/2022 PROCEDURE: CT CHEST ABDOMEN PELVIS W CONT DATE/TIME OF EXAM: 03/22/2022 12:02 PM INDICATION: R90.89: Other abnormal findings on diagnostic imaging of central nervous system COMPARISON: None. ADDITIONAL CLINICAL INFORMATION (if provided): CT chest abdomen andpelvis looking for malignancy Ordering Provider Reason For Exam: CONTRAST: IOPAMIDOL 76 % IV SOLN:80 mL TECHNIQUE: CT CHEST ABDOMEN PELVIS W CONT utilizing standard protocol.. CT dose reduction technique was used, including Automated ExposureControl. FINDINGS: There is no breast mass or axillary adenopathy There is no discrete mediastinal or hilar mass or pathologicnoncalcified adenopathy. There are a few scattered calcified granulomas in the chest. There is ectasia of the ascending aorta at 4.3 cm. There is no pleuralor pericardial effusion. The lungs are clear. There is no pulmonary nodule. Imaging in the upper abdomen shows no evidence of organomegaly. Theearly arterial enhancement of the liver spleen gallbladder pancreas adrenalsand kidneys are relatively normal. There is focal low density enlargement of the right adrenal gland measuring up to 1.4 cm. There is no kidney stoneor suspicious solid mass. The abdominal aorta is atherosclerotic butotherwise normal. The urinary bladder is normal. The patient is status post hysterectomy. There is no adnexal mass. The bowel was well opacified and relatively normal. No mass adenopathy inflammatory change or free fluid is seen. There is scoliosis with degenerative change in the lumbar spine predominantly at L3-4 IMPRESSION: 1. No mass adenopathy or metastasis is seen in the chest abdomen orpelvis. 2. Probable benign right adrenal adenoma. Repeat noncontrast CT or MRIwith and without gadolinium could be helpful for confirmation if still clinically concerned upper primary tumor. 3. Post hysterectomy. 4. Mild ectasia of the ascending aorta > Interpreting Provider: Beka Ervin MD on 03/22/2022 12:31 PM Augusto Moreno MD CT ORDERABLES * FL LUMBAR PUNCTURE (03/08/2022 11:33 AM DIRECTOR LEARNING SERVICES) Anatomical Region Laterality Modality Spine Radio Fluoroscop y 03/08/2022 12:4 2 PM DIRECTOR LEARNING SERVICES Impressions 03/08/2022 12:50 PM DIRECTOR LEARNING SERVICES IMPRESSION: Lumbar puncture, including opening and closing pressures, using fluoroscopy. > Interpreting Provider: Matt Ferrari MD on 03/08/2022 12:50 PM Narrative 03/08/2022 12:50 PM DIRECTOR LEARNING SERVICES PROCEDURE: ??FL LUMBAR PUNCTURE, DATE/TIME OF EXAM: ??03/08/2022 11:33 AM, LOCATION ??[facility] INDICATION: R90.89: Other abnormal findings on diagnostic imaging of central nervous system ADDITIONAL CLINICAL INFORMATION: Ordering Provider Reason For Exam: Technologist Note: Additional: LUMBAR PUNCTURE USING FLUOROSCOPY: History: Abnormal findings involving the central nervous system on prior studies. Lumbar puncture, including opening and closing pressures, utilizing fluoroscopic guidance requested. The risks and benefits of the procedure were explained to the patient who indicated understanding on 03/08/2022 Fluoroscopy exposure time - 0.6 minutes. DAP - 115.74 (microGy*m2). Air kerma dose - 5.10 mGy. Technique: The patient was placed in the prone position and prepped and draped in the usual fashion. Following local anesthesia, and using fluoroscopic guidance, the lumbar subarachnoid space was entered at the L2-L3 level with a #22 spinal needle. Nonbloody cerebrospinal fluid was obtained though the flow was extremely slow. For this reason, the #22 spinal needle was removed and a #20 spinal needle inserted at the L2-L3 level. Again, nonbloody cerebrospinal fluid was obtained. Initially, an opening pressure of 15 cm was obtained (9 cm to the skin and 6 cm from the skin to the spinal canal). A total of 12 mL (with 6 mL in tube 1, and 2 mL in each of tubes 2-4) was obtained and sent to pathology for requested tests. Subsequently, a closing pressure of 14 cm was obtained (8 cm to the skin and 6 cm from the skin to the spinal canal). The patient tolerated the procedure without incident. Findings: Three fluoroscopic images were obtained to document location. Procedure Note Matt Ferrari MD - 03/08/2022 PROCEDURE: FL LUMBAR PUNCTURE, DATE/TIME OF EXAM: 03/08/2022 11:33 AM, LOCATION [facility] INDICATION: R90.89: Other abnormal findings on diagnostic imaging of central nervous system ADDITIONAL CLINICAL INFORMATION: Ordering Provider Reason For Exam: Technologist Note: Additional: LUMBAR PUNCTURE USING FLUOROSCOPY: History: Abnormal findings involving the central nervous system on prior studies. Lumbar puncture, including opening and closing pressures, utilizing fluoroscopic guidance requested. The risks and benefits of the procedure were explained to the patientwho indicated understanding on 03/08/2022 Fluoroscopy exposure time - 0.6 minutes. DAP - 115.74 (microGy*m2). Air kerma dose - 5.10 mGy. Technique: The patient was placed in the prone position and prepped and draped in the usual fashion. Following local anesthesia, and using fluoroscopic guidance, the lumbar subarachnoid space was entered at the L2-L3 level with a #22 spinal needle. Nonbloody cerebrospinal fluid was obtained though the flow was extremely slow. For this reason, the #22 spinal needle was removed and a #20 spinal needle inserted at the L2-L3 level. Again, nonbloody cerebrospinal fluid was obtained. Initially, an opening pressure of 15 cm was obtained (9 cm to the skinand 6 cm from the skin to the spinal canal). A total of 12 mL (with 6 mL in tube 1, and 2 mL in each of tubes 2-4) was obtained and sent topathology for requested tests. Subsequently, a closing pressure of 14 cm was obtained (8 cm to the skin and 6 cm from the skin to the spinal canal). The patient tolerated the procedure without incident. Findings: Three fluoroscopic images were obtained to document location. IMPRESSION: Lumbar puncture, including opening and closing pressures, using fluoroscopy. > Interpreting Provider: Matt Ferrari MD on 03/08/2022 12:50 PM Augusto Moreno MD FLUOROSCOPY ORDERABL ES * CRYPTOCOCCUS ANTIGEN CSF (03/08/2022 10:33 AM DIRECTOR LEARNING SERVICES) Cryptococcus Antigen CSF Negative Negative 03/08/2022 3:58 PM DIRECTOR LEARNING SERVICES [facility] MICROBIOLOGY Cerebral spinal fluid CEREBROSPINAL FLUID SPECIMEN / Unknown Collection / Unknown 03/08/2022 10:33 AM DIRECTOR LEARNING SERVICES 03/08/2022 11:19 AM DIRECTOR LEARNING SERVICES Augusto Moreno MD LAB - MICROBIOLOGY O RDERABLES [facility] MICROBIOLOGY [address] [place] [address], [facility] [phone] * NEUROMYELITIS OPTICA APQ4 IGG CSF W/RFLX (03/08/2022 10:33 AM DIRECTOR LEARNING SERVICES) Neuromyelitis Optica/AQP4 IgG CSF < 1:1 <1:1 03/11/2022 10:35 PM DIRECTOR LEARNING SERVICES [facility] ([facility]) Comment: Aquaporin-4 Receptor Antibody, IgG is not detected. No further testing will be performed. INTERPRETIVE INFORMATION: Neuromyelitis Optica/AQP4-IgG, CSF Diagnosis of neuromyelitis optica (NMO) requires the presence of longitudinally extensive acute myelitis (lesions extending over 3 or more vertebral segments) and optic neuritis. Approximately 75 percent of patients with NMO express antibodies to the aquaporin-4 (AQP4) receptor. While the absence of AQP4 receptor antibodies does not rule out a diagnosis of NMO, presence of this antibody is diagnostic for NMO. This test was developed and its performance characteristics determined by [facility] It has not been cleared or approved by the US Food and Drug Administration. This test was performed in a CLIA certified laboratory and is intended for clinical purposes. Performed By: [facility] [address] [place] [id number] [facility]: Beka Wilson MD, PhD Cerebral spinal fluid CEREBROSPINAL FLUID SPECIMEN / Unknown Collection / Unknown 03/08/2022 10:33 AM DIRECTOR LEARNING SERVICES 03/08/2022 11:19 AM DIRECTOR LEARNING SERVICES Augusto Moreno MD LAB - BODY FLUID ORD ERABLES [facility] ([facility]) [address] * VERA VIRUS PCR CSF (03/08/2022 10:33 AM DIRECTOR LEARNING SERVICES) VERA Virus DNA PCR CSF Negative Negative 03/13/2022 11:07 AM DIRECTOR LEARNING SERVICES [facility] ([facility]) Comment: No JCV DNA detected This test was developed and its performance characteristics determined by [facility]. ??It has not been cleared or approved by the Food and Drug Administration. ??The FDA has determined that such clearance or approval is not necessary. Cerebral spinal fluid CEREBROSPINAL FLUID SPECIMEN / Unknown Collection / Unknown 03/08/2022 10:33 AM DIRECTOR LEARNING SERVICES 03/08/2022 11:19 AM DIRECTOR LEARNING SERVICES Narrative [facility] ([facility]) - 03/13/2022 11:07 AM DIRECTOR LEARNING SERVICES Performed at: ??01 - [facility] [address] ??[id number] Head Of Product: Mert Davidson MD, Phone: ??[phone] Augusto Moreno MD LAB - BODY FLUID ORD ERABLES [facility]) [address] [place] [address] * OLIGOCLONAL BANDS CSF+BLOOD PANEL (03/08/2022 10:33 AM DIRECTOR LEARNING SERVICES) IgG CSF 2.6 0.0 - 6.7 mg/dL 03/12/2022 1:06 PM DIRECTOR LEARNING SERVICES [facility] ([facility]) Albumin CSF 21 8 - 37 mg/dL 03/12/2022 1:06 PM DIRECTOR LEARNING SERVICES [facility] ([facility]) IgG Quantitative 903 586 - 1602 mg/dL 03/12/2022 1:06 PM DIRECTOR LEARNING SERVICES [facility] ([facility]) Albumin 3.9 3.8 - 4.9 g/dL 03/12/2022 1:06 PM DIRECTOR LEARNING SERVICES [facility] ([facility]) IgG/Albumin Ratio CSF 0.12 0.00 - 0.25 03/12/2022 1:06 PM DIRECTOR LEARNING SERVICES [facility] ([facility]) IgG Index CSF 0.5 0.0 - 0.7 03/12/2022 1:06 PM DIRECTOR LEARNING SERVICES [facility] ([facility]) Oligoclonal Bands Comment 023 1:06 PM DIRECTOR LEARNING SERVICES [facility] ([facility]) Comment: Zero (0) oligoclonal bands were observed in the CSF. However three (3) paired bands were observed in both the CSF and serum. Paired bands suggest an immune response to an inflammatory process outside the RN LABOR DELIVERY and are unlikely to represent a RN LABOR DELIVERY demyelinating disease. Interpretation: Criteria for Positivity: Four (4) or more oligoclonal bands observed only in the CSF have been shown to be most consistent with MS using our method. [Billy , Bi EL, Sherry PARIKH, and Mariana JA: Cerebrospinal Fluid Oligoclonal Bands in the Diagnosis of Multiple Sclerosis. Am J Clin Pathol 120(5):672-675, 2003]. Oligoclonal bands that are present only in the CSF have been associated with a variety of inflammatory brain diseases such as multiple sclerosis (MS), subacute encephalitis, neurosyphilis, etc. Increased IgG in the CSF is not specific for MS, but is an indication of chronic neural inflammation. Clinical correlation indicated. Approximately 2-3% of clinically confirmed MS patients show little or no evidence of oligoclonal bands in the CSF; however oligoclonal bands may develop as the disease progresses. Oligoclonal Banding testing performed using Isoelectric Focusing (IEF) and immunoblotting methodology. Other MISCELLANEOUS SAMPLES / Unknown Collection / Unknown 03/08/2022 10:33 AM DIRECTOR LEARNING SERVICES 03/08/2022 11:19 AM DIRECTOR LEARNING SERVICES Narrative [facility] ([facility]) - 03/12/2022 1:06 PM DIRECTOR LEARNING SERVICES Performed at: ??01 - [facility] [address] ??[id number] Head Of Product: Tony Jack PhD, Phone: ??[phone] Augusto Moreno MD LAB - BODY FLUID ORD ERABLES [facility] ([facility]) [address] [place] [address] * GRAM STAIN (LAB ORDERED) (03/08/2022 10:33 AM DIRECTOR LEARNING SERVICES) Gram Stain No organisms seen 023 3:[address] [facility] Gram Stain No polymorphonuclear cells 03/08/2022 3:[address] [facility] Microbiology CEREBROSPINAL FLUID SPECIMEN / Unknown Collection / Unknown 03/08/2022 10:33 AM DIRECTOR LEARNING SERVICES 03/08/2022 11:19 AM DIRECTOR LEARNING SERVICES Augusto Moreno MD LAB - MICROBIOLOGY O AMANDA Performing Organization Address City/[facility]/ZIP Co de Phone Number [facility] [address] [place] [address] * CULTURE CSF+GRAM STAIN (03/08/2022 10:33 AM DIRECTOR LEARNING SERVICES) Culture No growth DAINA 03/15/2022 7:15 AM DIRECTOR LEARNING SERVICES [facility] MICROBIOLOGY Gram Stain No polymorphonuclear cells 03/15/2022 7:15 AM DIRECTOR LEARNING SERVICES [facility] MICROBIOLOG[facility] Gram Stain No organisms seen 023 7:15 AM DIRECTOR LEARNING SERVICES [facility] MICROBIOLOGY Cerebral spinal fluid CEREBROSPINAL FLUID SPECIMEN / Unknown Collection / Unknown 03/08/2022 10:33 AM DIRECTOR LEARNING SERVICES 03/08/2022 11:19 AM DIRECTOR LEARNING SERVICES Augusto Moreno MD LAB - MICROBIOLOGY O AMANDA [facility] MICROBIOLOGY [address] [place], [place] [address] [place] [address] * LYME DISEASE AB SCREEN CSF (03/08/2022 10:33 AM DIRECTOR LEARNING SERVICES) Borrelia burgdorferi Antibody JOCELIN CSF 0.16 <=0.99 DADA 03/13/2022 8:09 AM DIRECTOR LEARNING SERVICES [facility] ([facility]) Comment: INTERPRETIVE INFORMATION: Borrelia burgdorferi Abs, JOCEILN, CSF ??0.99 DADA or less: ......... Negative - Antibody to ?B. burgdorferi not detected. ??1.00 - 1.20 DADA ........... Equivocal - Repeat testing ?in 10-14 days may be helpful. ??1.21 DADA or greater: ...... Positive - Probable presence ?of antibody to B. burgdorferi ?detected. The detection of antibodies to B. burgdorferi in cerebrospinal fluid may indicate central nervous system infection. ??However, consideration must be given to possible contamination by blood or transfer of serum antibodies across the blood-brain barrier. Current CDC recommendations for the serologic diagnosis of Lyme disease are to screen with a polyvalent JOCELIN test and confirm equivocal and positive results with immunoblot. ??Both IgM and IgG immunoblots should be performed on samples less than 4 weeks after appearance of erythema migrans. ??Only IgG immunoblot should be performed on samples greater than 4 weeks after the disease onset. IgM immunoblot in the chronic stage is not recommended and does not aid in the diagnosis of neuroborreliosis or chronic Lyme disease. ??Please submit requests for appropriate immunoblot testing within 10 days. This test was developed and its performance characteristics determined by [facility] It has not been cleared or approved by the US Food and Drug Administration. This test was performed in a CLIA certified laboratory and is intended for clinical purposes. Cerebral spinal fluid CEREBROSPINAL FLUID SPECIMEN / Unknown Collection / Unknown 03/08/2022 10:33 AM DIRECTOR LEARNING SERVICES 03/08/2022 11:19 AM DIRECTOR LEARNING SERVICES Narrative [facility] ([facility]) - 03/13/2022 8:09 AM DIRECTOR LEARNING SERVICES Performed at: ??01 - [facility] [address] [place] [address] ??[id number] Head Of Product: Nicci Cash MD, Phone: ??[phone] Augusto Moreno MD LAB - BODY FLUID ORD ERABLES [facility] ([facility]) [address] [place] [address] * HERPES SIMPLEX 1+2 PCR CSF (03/08/2022 10:33 AM DIRECTOR LEARNING SERVICES) Pathologist [facility] Herpes Simplex Virus 1 PCR CSF Not detected Not detected 03/08/2022 4:24 PM DIRECTOR LEARNING SERVICES [facility] MICROBIOLOGY Herpes Simplex Virus 2 PCR CSF Not detected Not detected 03/08/2022 4:24 PM DIRECTOR LEARNING SERVICES [facility] MICROBIOLOGY Microbiology CEREBROSPINAL FLUID SPECIMEN / Unknown Collection / Unknown 03/08/2022 10:33 AM DIRECTOR LEARNING SERVICES 03/08/2022 11:19 AM DIRECTOR LEARNING SERVICES Augusto Moreno MD LAB - MICROBIOLOGY O RDERAKATHY [facility] MICROBIOLOGY [address] [place] [address], [facility] [phone] * ANGIOTENSIN CONVERTING ENZYME CSF (03/08/2022 10:33 AM DIRECTOR LEARNING SERVICES) Pathologist [facility] Angiotensin-Con verting Enzyme CSF <1.5 0.0 - 3.1 U/L 03/12/2022 5:06 PM DIRECTOR LEARNING SERVICES [facility] ([facility]) Cerebral spinal fluid CEREBROSPINAL FLUID SPECIMEN / Unknown Collection / Unknown 03/08/2022 10:33 AM DIRECTOR LEARNING SERVICES 03/08/2022 11:19 AM DIRECTOR LEARNING SERVICES Narrative [facility] ([facility]) - 03/12/2022 5:06 PM DIRECTOR LEARNING SERVICES Test(s) [id number], CSF results are labeled for research purposes only by the assay's assistant program manager. The performance characteristics of this assay have not been established by the assistant program manager. The result should not be used for treatment or for diagnostic purposes without confirmation of the diagnosis by another medically established diagnostic product or procedure. The performance characteristics were determined by [facility]. Performed at: ??01 - [facility] [address] ??[id number] Head Of Product: Mert Davidson MD, Phone: ??[phone] Augusto Moreno MD LAB - BODY FLUID ORD ERABLES Performing Organization Address [facility] Co de Phone Number [facility]) [address] [place] [address] * CYTOMEGALOVIRUS QUAL PCR (03/08/2022 10:33 AM DIRECTOR LEARNING SERVICES) [facility] Cytomegalovirus Detection PCR Negative Negative 03/12/2022 1:06 PM DIRECTOR LEARNING SERVICES [facility] ([facility]) Comment: No Cytomegalovirus DNA Detected. This test was developed and its performance characteristics determined by [facility]. ??It has not been cleared or approved by the Food and Drug Administration. ??The FDA has determined that such clearance or approval is not necessary. Other CEREBROSPINAL FLUID SPECIMEN / Unknown Collection / Unknown 03/08/2022 10:33 AM DIRECTOR LEARNING SERVICES 03/08/2022 1:58 PM DIRECTOR LEARNING SERVICES Narrative [facility] ([facility]) - 03/12/2022 1:06 PM DIRECTOR LEARNING SERVICES Performed at: ??01 - [address] ??[id number] Head Of Product: Mert Davidson MD, Phone: ??[phone] Augusto Moreno MD LAB - BODY FLUID ORD ERABLES Performing Organization Address [facility] de Phone Number [facility]) [address] [place] [address] * IGG INDEX CSF PANEL (03/08/2022 10:33 AM DIRECTOR LEARNING SERVICES) [facility] IgG CSF TNP mg/dL 03/11/2022 3:06 PM DIRECTOR LEARNING SERVICES [facility] ([facility]) Comment: Test not performed. Duplicate tests ordered. See [id number] Albumin CSF TNP mg/dL 03/11/2022 3:06 PM DIRECTOR LEARNING SERVICES [facility] ([facility]) Comment: Test not performed. Duplicate tests ordered. See [id number] IgG Quantitative 878 586 - 1602 mg/dL 03/11/2022 3:06 PM DIRECTOR LEARNING SERVICES [facility] ([facility]) Albumin 3.9 3.8 - 4.9 g/dL 03/11/2022 3:06 PM DIRECTOR LEARNING SERVICES [facility] ([facility]) IgG/Albumin Ratio CSF TNP 03/11/2022 3:06 PM DIRECTOR LEARNING SERVICES [facility] ([facility]) Comment: Unable to calculate result since non-numeric result obtained for component test. IgG Index CSF TNP 03/11/2022 3:06 PM DIRECTOR LEARNING SERVICES [facility] ([facility]) Comment: Unable to calculate result since non-numeric result obtained for component test. Cerebral spinal fluid MISCELLANEOUS SAMPLES / Unknown Collection / Unknown 03/08/2022 10:33 AM DIRECTOR LEARNING SERVICES 03/08/2022 11:19 AM DIRECTOR LEARNING SERVICES Narrative [facility] ([facility]) - 03/11/2022 3:06 PM DIRECTOR LEARNING SERVICES Performed at: ??01 - [facility] [address] [place], [place] ??[id number] Head Of Product: Tony Jack PhD, Phone: ??[phone] Augusto Moreno MD LAB - BODY FLUID ORD ERABLES [facility] ([facility]) [address] [place] [address] * (ABNORMAL) CELL COUNT W DIFFERENTIAL CSF (03/08/2022 10:33 AM DIRECTOR LEARNING SERVICES) Character CSF Clear 03/08/2022 11:48 AM [facility] Color CSF Colorless Colorless 03/08/2022 11:48 AM [facility] Total Nucleated Cells CSF 1 0 - 5 x10E6/L 03/08/2022 11:48 AM [facility] RBC CSF 239(H) 0 - 5 x10E6/L 03/08/2022 11:48 AM [facility] Xanthochromia CSF No 03/08/2022 11:48 AM DIRECTOR LEARNING SERVICES -[facility] Cerebral spinal fluid CEREBROSPINAL FLUID SPECIMEN / Unknown Collection / Unknown 03/08/2022 10:33 AM DIRECTOR LEARNING SERVICES 03/08/2022 11:19 AM DIRECTOR LEARNING SERVICES Augusto Moreno MD LAB - BODY FLUID ORD ERABLES [facility] [address] [place] [address] * PROTEIN CSF (03/08/2022 10:33 AM DIRECTOR LEARNING SERVICES) Protein CSF 35 15 - 40 mg/dL 03/08/2022 11:[address] [facility] Cerebral spinal fluid CEREBROSPINAL FLUID SPECIMEN / Unknown Collection / Unknown 03/08/2022 10:33 AM DIRECTOR LEARNING SERVICES 03/08/2022 11:19 AM DIRECTOR LEARNING SERVICES Augusto Moreno MD LAB - BODY FLUID ORD ERAKATHY Performing Organization Address [facility] Co de Phone Number [facility] [address] [place] [address] * GLUCOSE CSF (03/08/2022 10:33 AM DIRECTOR LEARNING SERVICES) Glucose CSF 61 40 - 70 mg/dL 03/08/2022 11:[address] [facility] Cerebral spinal fluid CEREBROSPINAL FLUID SPECIMEN / Unknown Collection / Unknown 03/08/2022 10:33 AM DIRECTOR LEARNING SERVICES 03/08/2022 11:19 AM DIRECTOR LEARNING SERVICES Augusto Moreno MD LAB - BODY FLUID HILARIO THIBODEAUX Performing Organization Address [facility] de Phone Number [facility] [address] [place] [phone] * CYTOLOGY NON-TRAINING ADMINISTRATOR PANEL (STL) (03/08/2022 8:58 AM DIRECTOR LEARNING SERVICES) Case Report Cytology Non Lab Assistant Report ? Case: [id number] ? Authorizing Provider: ??Augusto Moreno MD ? Collected: ? 03/08/2022 08:58 AM ? Ordering Location: ? [facility] ? Received: ?03/11/2022 01:49 PM ? Pathologist: ? Wisam Abebe MD ? Specimen: ?CSF ? 03/12/2022 1:16 PM [facility] Final Diagnosis Cerebral spinal fluid cytology: No cytological diagnosis Scantly cellular specimen Negative for malignancy 03/12/2022 1:16 PM [facility] Clinical History 56-year-old female with history of headaches and difficulty swallowing. MRI showed white matter abnormality (inferred from neurologist's note, report not located). Lumbar puncture performed. CSF submitted for cytology. 03/12/2022 1:16 PM [facility] Microscopic Description From cerebral spinal fluid concentrated by cytospin methods, 2 technically adequate Santiago stained slides are examined. Cytospin slides have low cellularity. Small amount of blood with few formed elements is present. Atypical, immature and malignant cells are absent. 03/12/2022 1:16 PM [facility] Disclaimer All histochemical and/or immunohistochemical results are interpreted with controls that demonstrate appropriate staining reactions before reporting results. Note on use of immunocytochemistry reagents: This test was developed and its performance characteristic determined by [facility], Department of Laboratory Medicine. It has not been cleared or approved by the U.S. Food and Drug Administration (FDA). The FDA has determined that such clearance or approval is not necessary. The test is used for clinical purpose. It should not be regarded as investigational or for research. This laboratory is certified to perform high complexity testing. The performance characteristics of the IHC/ABRAM assays have been validated on formalin-fixed paraffin embedded tissues only. The assays have not been validated on decalcified tissues. Results should be interpreted with caution. 03/12/2022 1:16 PM DIRECTOR LEARNING SERVICES -[facility] Performed By [facility] at [facility], [address] [place] [address]. [id number]. 03/12/2022 1:16 PM DIRECTOR LEARNING SERVICES -[facility] Embedded Images 03/12/2022 1:16 PM DIRECTOR LEARNING SERVICES -[facility] Pathology/Cytolo gy CEREBROSPINAL FLUID SPECIMEN / Unknown 03/08/2022 8:58 AM DIRECTOR LEARNING SERVICES 03/11/2022 1:49 PM DIRECTOR LEARNING SERVICES Augusto Moreno MD LAB - PATHOLOGY/CYTO LOGY ORDERABLES Performing Organization Address City/[facility]/ZIP Co de Phone Number [facility] [address] [place] [address] * TRICHOMONAS RAPID TEST (12/22/2016 2:40 PM CDT) Trichomonas Rapid Test Negative Negative 12/22/2016 3:02 PM CDT [facility] Microbiology ENTIRE VAGINA / Unknown Collection / Unknown 12/22/2016 2:40 PM CDT 12/22/2016 2:47 PM CDT Mary Kay Craig PA-C LAB - MICROBIOLOGY O RDERABLES [facility] [address] [place] [address] * CHLAMYDIA + GC AMPLIFIED PROBE (12/22/2016 2:40 PM CDT) Chlamydia Amplified Probe Negative Negative 12/23/2016 10:39 AM CDT [facility] GC Amplified Probe Negative Negative 12/23/2016 10:39 AM CDT [facility] Microbiology ENTIRE ENDOCERVIX / Unknown Collection / Unknown 12/22/2016 2:40 PM CDT 12/22/2016 2:47 PM CDT Narrative [facility] - 12/23/2016 10:39 AM CDT Results based on detection/no detection of ribosomal RNA by amplified method. Mary Kay Craig PA-C LAB - MICROBIOLOGY O RDERABLES [facility] [address] [place] [address], [facility] [phone] * (ABNORMAL) URINALYSIS ROUTINE W/REFLEX TO CULTURE (12/22/2016 1:58 PM CDT) Color UA Yellow Straw, Yellow, Dark Yellow 12/22/2016 2:05 PM CDT [facility] Clarity UA Clear 12/22/2016 2:05 PM CDT [facility] Specific [place] UA 1.002(L) 1.005 - 1.030 12/22/2016 2:05 PM CDT [facility] pH UA 6.5 5.0 - 8.0 pH 12/22/2016 2:05 PM CDT [facility] Protein UA Negative Negative 12/22/2016 2:05 PM CDT [facility] Blood UA Negative Negative 12/22/2016 2:05 PM CDT [facility] Leukocyte UA Negative Negative 12/22/2016 2:05 PM CDT [facility] Nitrite UA Negative Negative 12/22/2016 2:05 PM CDT [facility] Glucose UA Negative Negative 12/22/2016 2:05 PM CDT [facility] Ketone UA Negative Negative 12/22/2016 2:05 PM CDT [facility] Bilirubin UA Negative Negative 12/22/2016 2:05 PM CDT [facility] Urobilinogen UA 0.2 0.1 - 1.0 EU/dL 12/22/2016 2:05 PM CDT [facility] Reflex Status Culture not indicated 12/22/2016 2:05 PM CDT [facility] Urine URINE SPECIMEN OBTAINED BY CLEAN CATCH PROCEDURE / Unknown Collection / Unknown 12/22/2016 1:58 PM CDT 12/22/2016 2:00 PM CDT Mary Kay Craig PA-C LAB - URINALYSIS ORD ERABLES [facility] [address] [place] [address] * TROPONIN I (03/18/2014 5:30 AM DIRECTOR LEARNING SERVICES) Pathologist [facility] Troponin I <0.015 0.000 - 0.049 ng/mL 03/18/2014 6:00 AM DIRECTOR LEARNING SERVICES [facility] Blood BLOOD SPECIMEN / Unknown 03/18/2014 5:30 AM DIRECTOR LEARNING SERVICES 03/18/2014 5:37 AM DIRECTOR LEARNING SERVICES Narrative [facility] - 03/18/2014 6:00 AM DIRECTOR LEARNING SERVICES Note: Diagnosis of myocardial infarction requires symptoms of ischemia or EKG changes of ischemia and TNI >99th of normal (0.05 ng/mL). Troponin should be drawn on initial assessment and 3-6 hours later as clinically indicated. Any condition resulting in myocardial cell damage can increase cardiac troponin levels. In addition to myocardial infarction, these include but are not limited to CHF, arrhythmia, myocarditis, and non-cardiac related causes such as pulmonary embolism, renal failure and sepsis. Hugo Dee MD LAB - CHEMISTRY ORDE TRIPP Performing Organization Address [facility] Co de Phone Number [facility] [id number] [place] [address] * EKG 12-LEAD (03/18/2014 5:20 AM DIRECTOR LEARNING SERVICES) Pathologist [facility] Ventricular Rate 68 BPM [facility] Atrial Rate 68 BPM [facility] P-R Interval 178 ms [facility] QRS Duration ms 90 ms [facility] Q-T Interval ms 388 ms [facility] QTC Calculation (Bezet) 412 ms [facility] Calculated P Marshall 54 degrees [facility] Calculated R Marshall 29 degrees [facility] Calculated T Marshall 14 degrees [facility] Interpretation EKG Normal sinus rhythm Normal ECG No previous ECGs available Confirmed by BOB PETERSEN MD ([id number]) on 03/18/2014 9:32:05 AM DP MUSE 03/18/2014 5:20 AM DIRECTOR LEARNING SERVICES 03/18/2014 9:32 AM DIRECTOR LEARNING SERVICES Hugo Dee MD ECG ORDERABLES Performing Organization Address [facility] Co de Phone Number [facility] Care Teams 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
[2024-03-21 14:21] VITALS: BP 155/101; PULSE 86; RESP 18; TEMP 36.9; O2SAT 100
--- OUTSIDE RECORDS SUMMARY | 2024-03-21 14:42 | XMS_ITS | Patient Health Summary ---
Author Organization [facility] Address [address] [place] [address] Care Team Providers Care Migratory Worker Name Role Phone Patti Springer AMARA-COVER MAT MACHINE OPERATOR Primary Care Provider [phone] Note from [facility],non-owned Affiliates and Associated Physician Practices is amultiple site organization consisting of ambulatory clinics and hospital sitesin [place], [place], [place] and [place]. This disclosure is being madepursuant to the Care Everywhere program and may not contain all information available regarding this patient. Last updated 17.[facility] Allergies * Aspirin * Cefdinir(Urticaria,Itching) -High [...] Take 1 (one) tablet by mouth * Rye-3 Fatty Acids (Rye-3 Fish Oil) 1000 MG capsule Take by [...] finding on MRI of brain * CYTOLOGY NON-ASPHALT DAUBER PANEL (STL)(Performed 03/08/2022) Performed for Abnormal finding [...] 1HOUR (11/20/2022 5:56 PM CDT) Pathologist [facility] [place] Troponin I High Sensitive <3 <=14 ng/L 11/20/2022 6:38 PM CDT -[facility] Delta Troponin I HS 11/20/2022 6:38 PM CDT -[facility] Comment:Delta value intentio fredy not calculated. Baseline to 1 hour specimen collection interval exceeded. Blood BLOOD SPECIMEN / Unknown Venipuncture / Unknown 11/20/2022 5:56 PM CDT 11/20/2022 6:09 PM CDT Pramod Euceda MD LAB - CHEMISTRY DEBORA ALMAGUER [facility] Organization Address City/State/ZIP Co de Phone Number [facility] [address] [place] [address] * CT HEAD WO CONTRAST (11/20/2022 2:38 [...] DATE/TIME OF EXAM: ??11/20/2022 2:38 PM, LOCATION [facility] INDICATION: I10: Essential (primary) hypertension ADDITIONAL [...] DATE/TIME OF EXAM: 11/20/2022 2:38 PM, LOCATION [facility] INDICATION: I10: Essential (primary) hypertension ADDITIONAL [...] BASELINE + 1HR (11/20/2022 2:25 PM CDT) [facility] Troponin I High Sensitive <3 <=14 ng/L 11/20/2022 3:00 PM CDT [facility] Blood BLOOD SPECIMEN / Unknown Venipuncture / Unknown 11/20/2022 2:25 PM CDT 11/20/2022 2:38 PM CDT Pramod Euceda MD [facility] Organization Address City/State/ZIP Co de Phone Number [facility] [address] [place], [place] [id number] * CBC W AUTO DIFFERENTIAL (11/20/2022 2:25 PM CDT) Only the most recent of3 resultswithin the time period is included. Pathologist [facility] WBC 10.6 4.4 - 10.7 x10E9/L 11/20/2022 [...] - HEMATOLOGY ORD ERABLES [facility] [address] [place] [address] * (ABNORMAL) COMPREHENSIVE METABOLIC PANEL (11/20/2022 2:25 PM CDT) Only the most recent of3 resultswithin the time period is included. Glucose 89 70 - 105 mg/dL 11/20/2022 2:56 PM CDT -[facility] Sodium 143 136 - 145 mmol/L 11/20/2022 2:56 PM CDT -[facility] Potassium 3.7 3.5 - 5.1 mmol/L 11/20/2022 2:56 PM CDT -[facility] Chloride 107 98 - 107 mmol/L 11/20/2022 2:56 PM CDT -[facility] CO2 26 22 - 29 mmol/L 11/20/2022 2:56 PM CDT -[facility] Calcium 9.4 8.4 - [...] Pramod Euceda MD LAB - [facility] Organization Address City/State/ZIP Co de Phone Number [facility] [address] [place] [address] * XR CHEST PA AND LATERAL (11/20/2022 [...] ABDOMEN PELVIS W CONT (03/22/2022 11:53 AM ASSISTANT SOFTBALL COACH) Anatomical Region Laterality Modality Chest, Abdomen, Pelvis Computed Tomography 03/22/2022 12:1 4 PM ASSISTANT SOFTBALL COACH Impressions 03/22/2022 12:31 PM ASSISTANT SOFTBALL COACH IMPRESSION: 1. No mass adenopathy or metastasis [...] 03/22/2022 12:31 PM Narrative 03/22/2022 12:31 PM ASSISTANT SOFTBALL COACH PROCEDURE: ??CT CHEST ABDOMEN PELVIS W CONT [...] * FL LUMBAR PUNCTURE (03/08/2022 11:33 AM ASSISTANT SOFTBALL COACH) Anatomical Region Laterality Modality Spine Radio Fluoroscop y 03/08/2022 12:4 2 PM ASSISTANT SOFTBALL COACH Impressions 03/08/2022 12:50 PM ASSISTANT SOFTBALL COACH IMPRESSION: Lumbar puncture, including opening and closing pressures, using fluoroscopy. > Interpreting Provider: Matt Ferrari MD on 03/08/2022 12:50 PM Narrative 03/08/2022 12:50 PM ASSISTANT SOFTBALL COACH PROCEDURE: ??FL LUMBAR PUNCTURE, DATE/TIME OF EXAM: ??03/08/2022 11:33 AM, LOCATION [facility] INDICATION: R90.89: Other abnormal findings on [...] DATE/TIME OF EXAM: 03/08/2022 11:33 AM, LOCATION [facility] INDICATION: R90.89: Other abnormal findings on [...] * CRYPTOCOCCUS ANTIGEN CSF (03/08/2022 10:33 AM ASSISTANT SOFTBALL COACH) Cryptococcus Antigen CSF Negative Negative 03/08/2022 3:58 PM ASSISTANT SOFTBALL COACH [facility] Cerebral spinal fluid CEREBROSPINAL FLUID SPECIMEN / Unknown Collection / Unknown 03/08/2022 10:33 AM ASSISTANT SOFTBALL COACH 03/08/2022 11:19 AM ASSISTANT SOFTBALL COACH Augusto Moreno MD LAB - MICROBIOLOGY O RDERABLES [facility] [address] [place] [address], [facility] [phone] * NEUROMYELITIS OPTICA APQ4 IGG CSF W/RFLX (03/08/2022 10:33 AM ASSISTANT SOFTBALL COACH) Neuromyelitis Optica/AQP4 IgG CSF < 1:1 <1:1 03/11/2022 10:35 PM ASSISTANT SOFTBALL COACH [facility] ([facility]) Comment: Aquaporin-4 Receptor Antibody, IgG is [...] developed and its performance characteristics determined by [facility]. It has not been cleared or approved by the US Food and Drug Administration. This test was performed in a CLIA certified laboratory and is intended for clinical purposes. Performed By: [facility] [address] [place] [id number] Hydrator Operator: Beka Wilson MD, PhD Cerebral spinal fluid CEREBROSPINAL FLUID SPECIMEN / Unknown Collection / Unknown 03/08/2022 10:33 AM ASSISTANT SOFTBALL COACH 03/08/2022 11:19 AM ASSISTANT SOFTBALL COACH Augusto Moreno MD LAB - BODY FLUID ORD ERABLES [facility] ([facility]) [address] * VERA VIRUS PCR CSF (03/08/2022 10:33 AM ASSISTANT SOFTBALL COACH) VERA Virus DNA PCR CSF Negative Negative 03/13/2022 11:07 AM ASSISTANT SOFTBALL COACH [facility] ([facility]) Comment: No JCV DNA detected This test was developed and its performance characteristics determined by [facility]. ??It has not been cleared or approved by the Food and Drug Administration. ??The FDA has determined that such clearance or approval is not necessary. Cerebral spinal fluid CEREBROSPINAL FLUID SPECIMEN / Unknown Collection / Unknown 03/08/2022 10:33 AM ASSISTANT SOFTBALL COACH 03/08/2022 11:19 AM ASSISTANT SOFTBALL COACH Narrative [facility] ([facility]) - 03/13/2022 11:07 AM ASSISTANT SOFTBALL COACH Performed at: ??01 - [facility] [address] ??[id number] Optical Fabrication Technician: Mert Davidson MD, Phone: ??[phone] Augusto Moreno MD LAB - BODY FLUID ORD ERABLES [facility]) [address] [place] [address] * OLIGOCLONAL BANDS CSF+BLOOD PANEL (03/08/2022 10:33 AM ASSISTANT SOFTBALL COACH) IgG CSF 2.6 0.0 - 6.7 mg/dL 03/12/2022 1:06 PM ASSISTANT SOFTBALL COACH [facility] ([facility]) Albumin CSF 21 8 - 37 mg/dL 03/12/2022 1:06 PM ASSISTANT SOFTBALL COACH [facility] ([facility]) IgG Quantitative 903 586 - 1602 mg/dL 03/12/2022 1:06 PM ASSISTANT SOFTBALL COACH [facility] ([facility]) Albumin 3.9 3.8 - 4.9 g/dL 03/12/2022 1:06 PM ASSISTANT SOFTBALL COACH [facility] ([facility]) IgG/Albumin Ratio CSF 0.12 0.00 - 0.25 03/12/2022 1:06 PM ASSISTANT SOFTBALL COACH [facility] ([facility]) IgG Index CSF 0.5 0.0 - 0.7 03/12/2022 1:06 PM ASSISTANT SOFTBALL COACH [facility] ([facility]) Oligoclonal Bands Comment 023 1:06 PM ASSISTANT SOFTBALL COACH [facility] ([facility]) Comment: Zero (0) oligoclonal bands were observed in the CSF. However three (3) paired bands were observed in both the CSF and serum. Paired bands suggest an immune response to an inflammatory process outside the FISH AND WILDLIFE TECHNICIAN and are unlikely to represent a FISH AND WILDLIFE TECHNICIAN demyelinating disease. Interpretation: Criteria for Positivity: Four [...] Unknown Collection / Unknown 03/08/2022 10:33 AM ASSISTANT SOFTBALL COACH 03/08/2022 11:19 AM ASSISTANT SOFTBALL COACH Narrative [facility] ([facility]) - 03/12/2022 1:06 PM ASSISTANT SOFTBALL COACH Performed at: ??01 - [facility] [address] ??[id number] Optical Fabrication Technician: Tony Jack PhD, Phone: ??[phone] Augusto Moreno MD LAB - BODY FLUID ORD ERABLES [facility] ([facility]) [address] [place] [address] * GRAM STAIN (LAB ORDERED) (03/08/2022 10:33 AM ASSISTANT SOFTBALL COACH) Gram Stain No organisms seen 023 3:16 PM ASSISTANT SOFTBALL COACH [facility] Gram Stain No polymorphonuclear cells 03/08/2022 3:16 PM ASSISTANT SOFTBALL COACH [facility] Microbiology CEREBROSPINAL FLUID SPECIMEN / Unknown Collection / Unknown 03/08/2022 10:33 AM ASSISTANT SOFTBALL COACH 03/08/2022 11:19 AM ASSISTANT SOFTBALL COACH Augusto Moreno MD LAB - MICROBIOLOGY O AMANDA Performing Organization Address City/[facility]/ZIP Co de Phone Number [facility] [address] [place] [address] * CULTURE CSF+GRAM STAIN (03/08/2022 10:33 AM ASSISTANT SOFTBALL COACH) Culture No growth DAINA 03/15/2022 7:15 AM ASSISTANT SOFTBALL COACH [facility] Gram Stain No polymorphonuclear cells 03/15/2022 7:15 AM ASSISTANT SOFTBALL COACH [facility] Gram Stain No organisms seen 023 7:15 AM ASSISTANT SOFTBALL COACH [facility] Cerebral spinal fluid CEREBROSPINAL FLUID SPECIMEN / Unknown Collection / Unknown 03/08/2022 10:33 AM ASSISTANT SOFTBALL COACH 03/08/2022 11:19 AM ASSISTANT SOFTBALL COACH Augusto Moreno MD LAB - MICROBIOLOGY O AMANDA [facility] [address] [place], [place] [address] [place] [address] * LYME DISEASE AB SCREEN CSF (03/08/2022 10:33 AM ASSISTANT SOFTBALL COACH) Borrelia burgdorferi Antibody JOCELIN CSF 0.16 <=0.99 DADA 03/13/2022 8:09 AM ASSISTANT SOFTBALL COACH [facility] ([facility]) Comment: INTERPRETIVE INFORMATION: Borrelia burgdorferi Abs, JOCELIN, CSF ??0.99 DADA or less: ......... Negative [...] developed and its performance characteristics determined by [facility]. It has not been cleared or approved by the US Food and Drug Administration. This test was performed in a CLIA certified laboratory and is intended for clinical purposes. Cerebral spinal fluid CEREBROSPINAL FLUID SPECIMEN / Unknown Collection / Unknown 03/08/2022 10:33 AM ASSISTANT SOFTBALL COACH 03/08/2022 11:19 AM ASSISTANT SOFTBALL COACH Narrative [facility] ([facility]) - 03/13/2022 8:09 AM ASSISTANT SOFTBALL COACH Performed at: ??01 - [facility] [address] [place] [address] ??[id number] Optical Fabrication Technician: Nicci Cahs MD, Phone: ??[phone] Augusto Moreno MD LAB - BODY FLUID ORD ERABLES [facility] ([facility]) [address] [place] [address] * HERPES SIMPLEX 1+2 PCR CSF (03/08/2022 10:33 AM ASSISTANT SOFTBALL COACH) Pathologist [facility] Herpes Simplex Virus 1 PCR CSF Not detected Not detected 03/08/2022 4:24 PM ASSISTANT SOFTBALL COACH [facility] Herpes Simplex Virus 2 PCR CSF Not detected Not detected 03/08/2022 4:24 PM ASSISTANT SOFTBALL COACH [facility] Microbiology CEREBROSPINAL FLUID SPECIMEN / Unknown Collection / Unknown 03/08/2022 10:33 AM ASSISTANT SOFTBALL COACH 03/08/2022 11:19 AM ASSISTANT SOFTBALL COACH Augusto Moreno MD LAB - MICROBIOLOGY O RDERAKATHY [facility] [address] [place] [address], [facility] [phone] * ANGIOTENSIN CONVERTING ENZYME CSF (03/08/2022 10:33 AM ASSISTANT SOFTBALL COACH) Pathologist [facility] Angiotensin-Con verting Enzyme CSF <1.5 0.0 - 3.1 U/L 03/12/2022 5:06 PM ASSISTANT SOFTBALL COACH [facility] ([facility]) Cerebral spinal fluid CEREBROSPINAL FLUID SPECIMEN / Unknown Collection / Unknown 03/08/2022 10:33 AM ASSISTANT SOFTBALL COACH 03/08/2022 11:19 AM ASSISTANT SOFTBALL COACH Narrative [facility] ([facility]) - 03/12/2022 5:06 PM ASSISTANT SOFTBALL COACH Test(s) [id number], CSF results are labeled for research purposes only by the assay's shop cooper. The performance characteristics of this assay have not been established by the shop cooper. The result should not be used for treatment or for diagnostic purposes without confirmation of the diagnosis by another medically established diagnostic product or procedure. The performance characteristics were determined by [facility]. Performed at: ??01 - [facility] [address] ??[id number] Optical Fabrication Technician: Mert Davidson MD, Phone: ??[phone] Augusto Moreno MD LAB - BODY FLUID ORD ERABLES Performing Organization Address [facility] Co de Phone Number [facility]) [address] [place] [address] * CYTOMEGALOVIRUS QUAL PCR (03/08/2022 10:33 AM ASSISTANT SOFTBALL COACH) [facility] Cytomegalovirus Detection PCR Negative Negative 03/12/2022 1:06 PM ASSISTANT SOFTBALL COACH [facility] ([facility]) Comment: No Cytomegalovirus DNA Detected. This test was developed and its performance characteristics determined by [facility]. ??It has not been cleared or approved by the Food and Drug Administration. ??The FDA has determined that such clearance or approval is not necessary. Other CEREBROSPINAL FLUID SPECIMEN / Unknown Collection / Unknown 03/08/2022 10:33 AM ASSISTANT SOFTBALL COACH 03/08/2022 1:58 PM ASSISTANT SOFTBALL COACH Narrative [facility] ([facility]) - 03/12/2022 1:06 PM ASSISTANT SOFTBALL COACH Performed at: ??01 - [address] ??[id number] Optical Fabrication Technician: Mert Davidson MD, Phone: ??[phone] Augusto Moreno MD LAB - BODY FLUID ORD ERABLES Performing Organization Address [facility] de Phone Number [facility]) [address] [place] [address] * IGG INDEX CSF PANEL (03/08/2022 10:33 AM ASSISTANT SOFTBALL COACH) [facility] IgG CSF TNP mg/dL 03/11/2022 3:06 PM ASSISTANT SOFTBALL COACH [facility] ([facility]) Comment: Test not performed. Duplicate tests ordered. See [id number] Albumin CSF TNP mg/dL 03/11/2022 3:06 PM ASSISTANT SOFTBALL COACH [facility] ([facility]) Comment: Test not performed. Duplicate tests ordered. See [id number] IgG Quantitative 878 586 - 1602 mg/dL 03/11/2022 3:06 PM ASSISTANT SOFTBALL COACH [facility] ([facility]) Albumin 3.9 3.8 - 4.9 g/dL 03/11/2022 3:06 PM ASSISTANT SOFTBALL COACH [facility] ([facility]) IgG/Albumin Ratio CSF TNP 03/11/2022 3:06 PM ASSISTANT SOFTBALL COACH [facility] ([facility]) Comment: Unable to calculate result since non-numeric result obtained for component test. IgG Index CSF TNP 03/11/2022 3:06 PM ASSISTANT SOFTBALL COACH [facility] ([facility]) Comment: Unable to calculate result since non-numeric result obtained for component test. Cerebral spinal fluid MISCELLANEOUS SAMPLES / Unknown Collection / Unknown 03/08/2022 10:33 AM ASSISTANT SOFTBALL COACH 03/08/2022 11:19 AM ASSISTANT SOFTBALL COACH Narrative [facility] ([facility]) - 03/11/2022 3:06 PM ASSISTANT SOFTBALL COACH Performed at: ??01 - [facility] [address] [place], [place] ??[id number] Optical Fabrication Technician: Tony Jack PhD, Phone: ??[phone] Augusto Moreno MD LAB - BODY FLUID ORD ERABLES [facility] ([facility]) [address] [place] [address] * (ABNORMAL) CELL COUNT W DIFFERENTIAL CSF (03/08/2022 10:33 AM ASSISTANT SOFTBALL COACH) Character CSF Clear 03/08/2022 11:48 AM [facility] Color CSF Colorless Colorless 03/08/2022 11:48 AM [facility] Total Nucleated Cells CSF 1 0 - 5 x10E6/L 03/08/2022 11:48 AM [facility] RBC CSF 239(H) 0 - 5 x10E6/L 03/08/2022 11:48 AM [facility] Xanthochromia CSF No 03/08/2022 11:48 AM ASSISTANT SOFTBALL COACH -[facility] Cerebral spinal fluid CEREBROSPINAL FLUID SPECIMEN / Unknown Collection / Unknown 03/08/2022 10:33 AM ASSISTANT SOFTBALL COACH 03/08/2022 11:19 AM ASSISTANT SOFTBALL COACH Augusto Moreno MD LAB - BODY FLUID ORD ERABLES [facility] [address] [place] [address] * PROTEIN CSF (03/08/2022 10:33 AM ASSISTANT SOFTBALL COACH) Protein CSF 35 15 - 40 mg/dL 03/08/2022 11:38 AM ASSISTANT SOFTBALL COACH [facility] Cerebral spinal fluid CEREBROSPINAL FLUID SPECIMEN / Unknown Collection / Unknown 03/08/2022 10:33 AM ASSISTANT SOFTBALL COACH 03/08/2022 11:19 AM ASSISTANT SOFTBALL COACH Augusto Moreno MD LAB - BODY FLUID ORD ERAKATHY Performing Organization Address [facility] Co de Phone Number [facility] [address] [place] [address] * GLUCOSE CSF (03/08/2022 10:33 AM ASSISTANT SOFTBALL COACH) Glucose CSF 61 40 - 70 mg/dL 03/08/2022 11:38 AM ASSISTANT SOFTBALL COACH [facility] Cerebral spinal fluid CEREBROSPINAL FLUID SPECIMEN / Unknown Collection / Unknown 03/08/2022 10:33 AM ASSISTANT SOFTBALL COACH 03/08/2022 11:19 AM ASSISTANT SOFTBALL COACH Augusto Moreno MD LAB - BODY FLUID HILARIO THIBODEAUX Performing Organization Address [facility] de Phone Number [facility] [address] [place] [address] * CYTOLOGY NON-ASPHALT DAUBER PANEL (STL) (03/08/2022 8:58 AM ASSISTANT SOFTBALL COACH) Case Report Cytology Non Scientific Specialist Report ? Case: [id number] ? Authorizing Provider: ??Augusto Moreno MD ? Collected: ? 03/08/2022 08:58 AM ? Ordering Location: ? [facility] ? Received: ?03/11/2022 01:49 PM ? Pathologist: ? Wisam Abebe MD ? Specimen: ?CSF ? 03/12/2022 1:16 PM [facility] Final Diagnosis Cerebral spinal fluid cytology: No cytological diagnosis Scantly cellular specimen Negative for malignancy 03/12/2022 1:16 PM [facility] Clinical History 56-year-old female with history of headaches and difficulty swallowing. MRI showed white matter abnormality (inferred from neurologist's note, report not located). Lumbar puncture performed. CSF submitted for cytology. 03/12/2022 1:16 PM [facility] Microscopic Description From cerebral spinal fluid concentrated by cytospin methods, 2 technically adequate Santiago stained slides are examined. Cytospin slides have low cellularity. Small amount of blood with few formed elements is present. Atypical, immature and malignant cells are absent. 03/12/2022 1:16 PM [facility] Disclaimer All histochemical and/or immunohistochemical results are interpreted with controls that demonstrate appropriate staining reactions before reporting results. Note on use of immunocytochemistry reagents: This test was developed and its performance characteristic determined by [facility], Department of Laboratory Medicine. It has not [...] be interpreted with caution. 03/12/2022 1:16 PM ASSISTANT SOFTBALL COACH [facility] Performed By [facility] at [facility], [address] [place] [address]. [id number]. 03/12/2022 1:16 PM ASSISTANT SOFTBALL COACH [facility] Embedded Images 03/12/2022 1:16 PM ASSISTANT SOFTBALL COACH [facility] Pathology/Cytolo gy CEREBROSPINAL FLUID SPECIMEN / Unknown 03/08/2022 8:58 AM ASSISTANT SOFTBALL COACH 03/11/2022 1:49 PM ASSISTANT SOFTBALL COACH Augusto Moreno MD LAB - PATHOLOGY/CYTO LOGY ORDERABLES Performing Organization Address City/[facility]/ZIP Co de Phone Number [facility] [address] [place] [address] * TRICHOMONAS RAPID TEST (12/22/2016 2:40 PM CDT) Trichomonas Rapid Test Negative Negative 12/22/2016 3:02 PM CDT [facility] Microbiology ENTIRE VAGINA / Unknown Collection / Unknown 12/22/2016 2:40 PM CDT 12/22/2016 2:47 PM CDT Mary Kay Craig PA-C LAB - MICROBIOLOGY O RDERABLES [facility] [address] [place] [address] * CHLAMYDIA + GC AMPLIFIED PROBE (12/22/2016 2:40 PM CDT) Chlamydia Amplified Probe Negative Negative 12/23/2016 10:39 AM CDT [facility] GC Amplified Probe Negative Negative 12/23/2016 10:39 AM CDT [facility] Microbiology ENTIRE ENDOCERVIX / Unknown Collection / Unknown 12/22/2016 2:40 PM CDT 12/22/2016 2:47 PM CDT Narrative [facility] - 12/23/2016 10:39 AM CDT Results based on detection/no detection of ribosomal RNA by amplified method. Mary Kay Craig PA-C LAB - MICROBIOLOGY O RDERABLES [facility] [address] [place] [address], [facility] [phone] * (ABNORMAL) URINALYSIS ROUTINE W/REFLEX TO CULTURE (12/22/2016 1:58 PM CDT) Color UA Yellow Straw, Yellow, Dark Yellow 12/22/2016 2:05 PM CDT [facility] Clarity UA Clear 12/22/2016 2:05 PM CDT [facility] Specific [place] UA 1.002(L) 1.005 - 1.030 12/22/2016 2:05 PM CDT [facility] pH UA 6.5 5.0 - 8.0 pH 12/22/2016 2:05 PM CDT [facility] Protein UA Negative Negative 12/22/2016 2:05 PM CDT [facility] Blood UA Negative Negative 12/22/2016 2:05 PM CDT [facility] Leukocyte UA Negative Negative 12/22/2016 2:05 PM CDT [facility] Nitrite UA Negative Negative 12/22/2016 2:05 PM CDT [facility] Glucose UA Negative Negative 12/22/2016 2:05 PM CDT [facility] Ketone UA Negative Negative 12/22/2016 2:05 PM CDT [facility] Bilirubin UA Negative Negative 12/22/2016 2:05 PM CDT [facility] Urobilinogen UA 0.2 0.1 - 1.0 EU/dL 12/22/2016 2:05 PM CDT [facility] Reflex Status Culture not indicated 12/22/2016 2:05 PM CDT [facility] Urine URINE SPECIMEN OBTAINED BY CLEAN CATCH PROCEDURE / Unknown Collection / Unknown 12/22/2016 1:58 PM CDT 12/22/2016 2:00 PM CDT Mary Kay Craig PA-C LAB - URINALYSIS ORD ERABLES [facility] [address] [place] [address] * TROPONIN I (03/18/2014 5:30 AM ASSISTANT SOFTBALL COACH) Pathologist [facility] Troponin I <0.015 0.000 - 0.049 ng/mL 03/18/2014 6:00 AM ASSISTANT SOFTBALL COACH [facility] Blood BLOOD SPECIMEN / Unknown 03/18/2014 5:30 AM ASSISTANT SOFTBALL COACH 03/18/2014 5:37 AM ASSISTANT SOFTBALL COACH Narrative [facility] - 03/18/2014 6:00 AM ASSISTANT SOFTBALL COACH Note: Diagnosis of myocardial infarction requires symptoms [...] - CHEMISTRY ORDE TRIPP Performing Organization Address [facility] Co de Phone Number [facility] [address] [place] [address] * EKG 12-LEAD (03/18/2014 5:20 AM ASSISTANT SOFTBALL COACH) Pathologist [facility] Ventricular Rate 68 BPM [facility] Atrial Rate 68 BPM [facility] P-R Interval 178 ms [facility] QRS Duration ms 90 ms [facility] Q-T Interval ms 388 ms [facility] QTC Calculation (Bezet) 412 ms [facility] Calculated P Mcdonald 54 degrees [facility] Calculated R Mcdonald 29 degrees [facility] Calculated T Mcdonald 14 degrees [facility] Interpretation EKG Normal sinus rhythm Normal ECG No previous ECGs available Confirmed by BOB PETERSEN MD ([id number]) on 03/18/2014 9:32:05 AM DP MUSE 03/18/2014 5:20 AM ASSISTANT SOFTBALL COACH 03/18/2014 9:32 AM ASSISTANT SOFTBALL COACH Hugo Dee MD ECG ORDERABLES Performing Organization Address [facility] Co de Phone Number [facility] Care Teams Migratory Worker Relationship Specialty Start Date End Date Patti Springer, TICKETER-COVER MAT MACHINE OPERATOR PCP - General Nurse Practitioner 03/22/22
--- OUTSIDE RECORDS SUMMARY | 2024-03-21 14:42 | XMS_ITS | Clinical Summary ---
Author Organization [facility] Address [address] [place] [address]. [place] [address] [place] [address] Care Team Providers Care Spike Machine Feeder Name Role Phone Kannan Aguirre Primary Care Provider [phone] Allergies Active Allergy Reactions Criticality Noted Date [...] on file Legal Sex Female 3:39 PM WAREHOUSE ASSISTANT Gender Identity Not on file Sexual Orientation [...] 9:56 AM 05/19/2021 7:34 PM Care Teams Spike Machine Feeder Relationship Specialty Start Date End Date Kannan Aguirre DO [address] [facility] [address] [address] PCP - General INTERNAL MEDICINE 05/17/21
--- OUTSIDE RECORDS SUMMARY | 2024-03-21 14:42 | XMS_ITS | CONTINUITY OF CARE DOCUMENT ---
Author Name yoav, texser Address Unknown Organization [facility] Address [address] [place] [address] Phone [phone] Care Team Providers Care Softball Player Name Role Phone Steffany Klein MD Unavailable [phone] HERRERA WOODS MD Unavailable HERRERA WOODS MD Unavailable PROBLEMS Condition Status Date Provider Notes Chest pain stress nuclear at [facility] 06/10 ef 73% active Steffany Klein MD Family History of Hypertension: active ? Tree Klein MD Asthma active Steffany Klein MD Tobacco abuse active Steffany Klein MD ENCOUNTERS Date Type Provider Location Encounter Diagnosis - In-person encounter Office Visit Steffany Klein MD [place] [facility] Chest pain stress nuclear at [facility] 06/10 ef 73%Family History of Hypertension:Asthm [...] Payer name Policy type / Coverage type [place] [employer] party ID [employer] GOLD PLUS HMO HMO [id number] ADVANCE DIRECTIVES Name Date DISCUSSED - NO DECISION MADE TREATMENT PLAN Date Name Performer Cardiology [facility] follow up To olga Klein MD [facility] follow up To olga Klein MD [facility] Hospital follow up To olga Klein MD HISTORY OF PROCEDURES Procedure Date Procedure Name Provider Procedure Notes S tatus SNOMED-CT: [id number] Current Medications Documented Steffany Klein MD completed
--- OUTSIDE RECORDS SUMMARY | 2024-03-21 14:42 | XMS_ITS | Referral Summary ---
Author Organization [facility] Address [address] [facility] [place] [address] Care Team Providers Care Supervisor Accounts Receivable Name Role Phone Patti Springer AMARA-DAIRY FEED SALES CONSULTANT Primary Care Provider [phone] Source Comments [facility],non-owned Affiliates and Associated Physician Practices is amultiple site organization consisting of ambulatory clinics and hospital sitesin [place], [place], [place]. This disclosure is being madepursuant to the Care Everywhere program and may not contain all information available regarding this patient. Last updated 17.[facility] Allergies Active Allergy Reactions Criticality Noted Date [...] Take 1 (one) tablet by mouth Active [place]-3 Fatty Acids ([place]-3 Fish Oil) 1000 MG capsule Take by [...] of Treatment Not on file Care Teams Supervisor Accounts Receivable Relationship Specialty Start Date End Date Patti Springer, CLINICAL RESEARCH TECHNICIAN-DAIRY FEED SALES CONSULTANT PCP - General Nurse Practitioner 03/22/22
--- OUTSIDE RECORDS SUMMARY | 2024-03-21 14:42 | XMS_ITS | Clinical Summary ---
Author Organization [facility] [address] Address [address] [place] [address] Care Team Providers Care Safety Supervisor Name Role Phone Patti Springer AMARA-WEIGHT AND TEST BAR CLERK Primary Care Provider [phone] Source Comments [facility] [address],non-owned Affiliates and Associated Physician Practices is amultiple site organization consisting of ambulatory clinics and hospital sitesin [place], [place], [place] and [place]. This disclosure is being madepursuant to the Care Everywhere program and may not contain all information available regarding this patient. Last updated 17.[facility] [address] Allergies Active Allergy Reactions Criticality Noted Date [...] Take 1 (one) tablet by mouth Active [place]-3 Fatty Acids ([place]-3 Fish Oil) 1000 MG capsule Take by [...] age to complete this topic Care Teams Safety Supervisor Relationship Specialty Start Date End Date Patti Springer, ENTERPRISE SALES EXECUTIVE-WEIGHT AND TEST BAR CLERK PCP - General Nurse Practitioner 03/22/22
--- NOTE | 2024-03-21 17:12 | ED_ITS ---
HPI - Extremity Problem General Chief complaint: Extremity Problem,Nontraumatic Stated complaint: L knee pain no recent injury Time Seen by Provider: 03/21/24 14:28 History of Present Illness HPI Narrative: Patient states she hurt her left knee months ago and was still having pain so came in today. Also having some pain behind the knee. Related Data Home Medications ?Medication ?Instructions ?Recorded ?Confirmed ?Last Taken ?Type albuterol sulfate 2.5 mg/3 mL 2.5 mg inhalation Q4H PRN 09/19/20 01/02/21 Unknown History (0.083 %) solution for nebulization Shortness Of Breath omega-3 fatty acids 1,000 mg 1,000 mg PO DAILY 09/19/20 01/02/21 Unknown History capsule (Fish Oil Concentrate) black cohosh 200 mg capsule 200 mg PO DAILY 12/06/20 01/02/21 Unknown History diclofenac potassium 25 mg tablet mg PO DAILY 01/02/21 01/02/21 Unknown History Allergies Allergy/AdvReac Type Severity Reaction Status Date / Time aspirin Allergy Severe BLEEDING Verified 03/21/24 13:46 cefdinir Allergy Severe Itching Verified 03/21/24 13:46 clindamycin Allergy Severe luis miguel Verified 03/21/24 13:46 alice cydrome codeine Allergy Severe Shortness Verified 03/21/24 13:46 of breath acetaminophen Allergy Intermediate JITTERY Verified 03/21/24 13:46 FEELING, LEGS TWITCHEY COCONUT Allergy Severe HIVES AND Uncoded 03/21/24 13:46 THROAT SWELLING sulfur Allergy Severe Itching Uncoded 03/21/24 13:46 Honey Bee Allergy Mild Anaphylactic Uncoded 03/21/24 13:46 Shock plastic tape AdvReac Severe Rash Uncoded 03/21/24 13:46 Review of Systems Review of Systems: All systems reviewed & are unremarkable except as noted in HPI and below PMFSH Past Medical History Medical History Arthritis Borderline diabetes Bronchial asthma Bulging discs Depression Migraines Surgical History Surgical History H/O abdominal hysterectomy H/O breast biopsy right and left H/O removal of cyst H/O tooth extraction H/O tubal ligation Family History Family History Father Alcoholism Heart problem Mother Alcoholism Hypertension Heart problem Sibling Alcoholism Colon cancer Diabetes mellitus Depression Anxiety Heart problem Thyroid disorder Social History Social History Social History: the patient has 3 children and she is . She occasionally smokes marijuana. She lives with a couple that she considers her adoptive parents. This patient stated that she smokes a couple cigarettes a day. No alcohol. She is currently unemployed and is on disability. The patient does not have a durable power litigation attorney and is a full code. Smoking packs per day: 0.5 Smoking cigarettes per day: 10.0 Years smoked: 44 Smoking pack-years: 22.00 Smoking status: Current every day smoker Tobacco type: cigarettes Second hand tobacco smoke exposure: Yes Alcohol intake: current Drinks per week: 2 Substance use: current Substance use type: marijuana Last use: 11/15/20 Spiritual care concerns: No Exam Narrative: EXAMINATION OF ORGAN SYSTEMS/BODY AREAS: Constitutional: Vital signs per nursing GENERAL:[No acute distress, non-toxic appearing.] HEAD: Normal with no signs of head trauma. EYES: EOMI, conjunctiva normal ENT: Hearing grossly intact LUNGS: Nonlabored breathing. HEART: [Regular rate and rhythm], normal DP pulse ABD: [Soft], [nontender to palpation] EXT: Normal range of motion; no deformity, some slight tenderness behind left knee, no lower leg swelling SKIN: [No rashes or lesions.] NEURO: [Alert and oriented x 3. No gross focal sensory or strength deficits.] PSYCH: Normal affect Course Vital Signs Vital signs: Vital Signs Temperature 98.5 F 03/21/24 14:21 Pulse Rate 86 03/21/24 14:21 Respiratory Rate 18 03/21/24 14:21 Blood Pressure 155/101 H 03/21/24 14:21 Pulse Oximetry 100 03/21/24 14:21 Oxygen Delivery Room Air 03/21/24 14:21 Temperature 98.5 F 03/21/24 14:21 Pulse Rate 86 03/21/24 14:21 Respiratory Rate 18 03/21/24 14:21 Blood Pressure 155/101 H 03/21/24 14:21 Pulse Oximetry 100 03/21/24 14:21 Oxygen Delivery Room Air 03/21/24 14:21 MDM - Extremity (Nontraumatic) MDM Narrative Medical decision making narrative: Patient presenting with left knee pain that has been ongoing for months since her last injury, she also has some pain to the back of her knee. Neurovascular intact, normal gait, normal range of motion, no swelling to leg and no skin changes X-ray were normal. I did offer ultrasound and ordered a and initially patient was agreeable to this and now states that she wants to go home. She understands that we could miss diagnosis of DVT but still wants to leave. Overall I do have very low concern for DVT given her normal exam. Instructed to follow-up with orthopedics and come back to the ER immediately if she changes her mind for symptoms get worse. Patient and partner at bedside agreeable to this plan Discharge Plan Discharge Clinical Impression: Chronic knee pain Patient Disposition: Home, Self-Care Condition: Stable Instructions: Knee Pain (ED) Additional Instructions: You declined the ultrasound today to rule out DVT; if you change your mind, please come back to get the scan. Please follow-up with your primary care doctor or with Orthopedics, or come back to the ER if symptoms get worse. Try the steroids as prescribed, you can always return to the ER if things worsen. Patient Language: Palestinian Prescriptions: New prednisone 20 mg tablet 40 mg PO DAILY 5 Days Qty: 10 0RF No Action black cohosh 200 mg capsule 200 mg PO DAILY albuterol sulfate 2.5 mg /3 mL (0.083 %) solution for nebulization 2.5 mg inhalation Q4H PRN (Reason: Shortness Of Breath) omega-3 fatty acids [Fish Oil Concentrate] 1,000 mg capsule 1,000 mg PO DAILY albuterol sulfate [Proventil HFA] 90 mcg/actuation HFA aerosol inhaler 1 puff inhalation Q4H PRN (Reason: shortness of breath or wheezing) Qty: 8.5 5RF ondansetron HCl [Zofran] 4 mg tablet 4 mg PO DAILY PRN (Reason: nausea and vomiting) Qty: 90 1RF diclofenac potassium 25 mg tablet PO DAILY trazodone 150 mg tablet 150 mg PO QHS PRN (Reason: insomnia) Qty: 30 2RF cyclobenzaprine 10 mg tablet 10 mg PO TID PRN (Reason: muscle spasm) Qty: 30 0RF gabapentin 600 mg tablet 600 mg PO BID Qty: 60 0RF lisinopril 5 mg tablet 5 mg PO DAILY Qty: 30 0RF escitalopram oxalate 20 mg tablet 20 mg PO DAILY Qty: 30 0RF gabapentin 600 mg tablet 600 mg PO BID Qty: 180 1RF escitalopram oxalate 20 mg tablet 20 mg PO DAILY Qty: 90 1RF Follow-up/Referrals: Miguelito Spaulding MD [Physician] - 2 Days Raul Ryan MD [Primary Care Provider] - 2 Days
== END 2024-03-21 15:25 | disposition home or self-care (01) ==
PROVIDERS: Emergency Provider Emergency Medicine; PCP Family Medicine
DX: M25.562 Pain in left knee (principal); G89.29 Other chronic pain; J45.909 Unspecified asthma, uncomplicated; M19.90 Unspecified osteoarthritis, unspecified site; R73.03 Prediabetes; F32.A Depression, unspecified; Z90.710 Acquired absence of both cervix and uterus; F17.210 Nicotine dependence, cigarettes, uncomplicated; Z79.899 Other long term (current) drug therapy
CPT/HCPCS: 73564; 99283

== ENCOUNTER 2024-04-22 10:53 | Emergency (ER) | payer MEDICARE, SELFPAY ==
[2024-04-22 10:50] VITALS: BP 179/121; PULSE 73; RESP 14; TEMP 36.7; O2SAT 99
[2024-04-22 11:09] LABS: Basophils Percent Auto 0.4 % (0.2-1.2); Eosinophils Absolute Auto 0.1 K/mm3 (0-0.3); Eosinophils Percent Auto 1.2 % (0-4.4); Hematocrit 43.2 % (37.0-47.0); Hemoglobin 14.2 g/dL (12.0-15.0); Immature Granulocyte Absolute 0.02 K/mm3 (0.00-0.031); Immature Granulocyte Percent A 0.3 % (0-0.5); Lymphocytes Absolute Auto 2.32 K/mm3 (0.9-3.2); Lymphocytes Percent Auto 29.8 % (18.3-44.2); Mean Corpuscular HGB Conc 32.9 g/dl (32-36); Mean Corpuscular Hemoglobin 31.3 pg (26-34); Mean Corpuscular Volume 95.2 fl (80-100); Mean Platelet Volume 9.1 fl (7.4-10.4); Monocytes Absolute Auto 0.7 K/mm3 (0.1-0.6); Monocytes Percent Auto 8.3 % (2.6-8.5); Neutrophils Absolute Auto 4.7 K/mm3 (1.3-6.7); Platelet Count Result 244 k/mm3 (150-375); Red Blood Count 4.54 M/mm3 (4.2-5.4); Red Cell Distribution Width 14.6 % (11.5-14.5); White Blood Count 7.8 K/mm3 (4.5-10.0)
[2024-04-22 11:10] VITALS: O2SAT 100
[2024-04-22 11:28] LABS: Alanine Aminotransferase 16 U/L (6-35); Albumin Level 3.6 g/dL (3.5-5.1); Alkaline Phosphatase 95 U/L (38-126); Anion Gap 8 mmol/L (4-12); Aspartate Amino Transferase 23 U/L (14-36); Bilirubin,Total 0.6 mg/dL (0.2-1.3); Blood Urea Nitrogen 8 mg/dL (7-17); Calcium 9.2 mg/dL (8.4-10.2); Carbon Dioxide 28 mmol/L (22-30); Chloride 106 mmol/L (98-107); Estimated CRCL calculation 56 ml/min; Estimated Glomerular Filt Rate > 60; Glucose 105 mg/dL (65-110); Potassium 3.2 mmol/L (3.4-5.0); Sodium 142 mmol/L (137-145)
[2024-04-22] MEDS: levETIRAcetam 1500MG/NACL100ML 1,500 MG/100 ML BAG 400 MG IVPB (12:45)
[2024-04-22] MEDS: SODIUM CHLORIDE 0.9% IV 1,000 ML 999 ML IV CONT (12:45)
[2024-04-22 12:49] LABS: Ethanol < 10 mg/dL (<10)
[2024-04-22 13:21] LABS: Amphetamine Screen Urine Negative (Negative); Barbiturate Screen Urine Negative (Negative); Benzodiazepines Screen Urine Negative (Negative); Cannabinoid Screen Urine Positive (Negative); Cocaine Screen Urine Negative (Negative); Methadone Screen Urine Negative (Negative); Opiate Screen Urine Negative (Negative); Phencyclidine Screen Urine Negative (Negative)
[2024-04-22 13:23] LABS: Influenza A QL RT-PCR Negative (Negative); Influenza B QL RT-PCR Negative (Negative); RSV RNA, RT-PCR Negative (Negative); SARS-CoV-2 RNA PCR Negative (Negative)
--- NOTE | 2024-04-22 13:47 | ED.GENADULT ---
HPI - General Adult General Chief complaint: Seizure Stated complaint: seizure Time Seen by Provider: 04/22/24 11:44 History of Present Illness HPI narrative: This is 58-year-old female history of MS and seizure disorder presenting for a seizure. [facility] she felt a seizure coming on. She was unable to control it and then had a brief loss of consciousness. This was her typical seizure. She says that she has about 1 of these day over the last several weeks. She has a known diagnosis of seizures but has not seen a neurologist is due see one in May. Patient notes that the seizures are frequently provoked by stressful situations such as today. She denies any fevers chills headache chest pain difficulty breathing abdominal pain urinary symptoms, nausea vomiting diarrhea. Related Data Home Medications ?Medication ?Instructions ?Recorded ?Confirmed ?Last Taken ?Type albuterol sulfate 2.5 mg/3 mL 2.5 mg inhalation Q4H PRN 09/19/20 01/02/21 Unknown History (0.083 %) solution for nebulization Shortness Of Breath omega-3 fatty acids 1,000 mg 1,000 mg PO DAILY 09/19/20 01/02/21 Unknown History capsule (Fish Oil Concentrate) black cohosh 200 mg capsule 200 mg PO DAILY 12/06/20 01/02/21 Unknown History diclofenac potassium 25 mg tablet mg PO DAILY 01/02/21 01/02/21 Unknown History Allergies Allergy/AdvReac Type Severity Reaction Status Date / Time aspirin Allergy Severe BLEEDING Verified 04/22/24 10:57 cefdinir Allergy Severe Itching Verified 04/22/24 10:57 clindamycin Allergy Severe luis miguel Verified 04/22/24 10:57 alice cydrome codeine Allergy Severe Shortness Verified 04/22/24 10:57 of breath acetaminophen Allergy Intermediate JITTERY Verified 04/22/24 10:57 FEELING, LEGS TWITCHEY COCONUT Allergy Severe HIVES AND Uncoded 04/22/24 10:57 THROAT SWELLING sulfur Allergy Severe Itching Uncoded 04/22/24 10:57 Honey Bee Allergy Mild Anaphylactic Uncoded 04/22/24 10:57 Shock plastic tape AdvReac Severe Rash Uncoded 04/22/24 10:57 PMFSH Past Medical History Medical History Arthritis Borderline diabetes Bronchial asthma Bulging discs Depression Migraines Surgical History Surgical History H/O abdominal hysterectomy H/O breast biopsy right and left H/O removal of cyst H/O tooth extraction H/O tubal ligation Family History Family History Father Alcoholism Heart problem Mother Alcoholism Hypertension Heart problem Sibling Alcoholism Colon cancer Diabetes mellitus Depression Anxiety Heart problem Thyroid disorder Social History Social History Social History: the patient has 3 children and she is . She occasionally smokes marijuana. She lives with a couple that she considers her adoptive parents. This patient stated that she smokes a couple cigarettes a day. No alcohol. She is currently unemployed and is on disability. The patient does not have a durable power assistant district attorney and is a full code. Smoking packs per day: 0.5 Smoking cigarettes per day: 10.0 Years smoked: 44 Smoking pack-years: 22.00 Smoking status: Current every day smoker Tobacco type: cigarettes Second hand tobacco smoke exposure: Yes Alcohol intake: current Drinks per week: 2 Substance use: current Substance use type: marijuana Last use: 11/15/20 Spiritual care concerns: No Exam Narrative: APPEARANCE: No apparent distress. Head: atraumatic. EYES: EOMI, NOSE: Atraumatic NECK: Trachea midline RESPIRATORY: No increased rate of breathing CARDIOVASCULAR: RRR, ABDOMINAL: Non-distended MUSCULOSKELETAl: No obvious deformities NEURO: Alert. Cranial nerves 2-12 grossly intact. Sensation light touch, motor function cerebellar function intact for 4 extremities. Gait exam was normal. SKIN:: Warm, dry. Normal color PSYCHIATRIC: Normal affect Course Vital Signs Vital signs: Vital Signs Temperature 98.1 F 04/22/24 10:50 Pulse Rate 73 04/22/24 10:50 Respiratory Rate 14 04/22/24 10:50 Blood Pressure 179/121 H 04/22/24 10:50 Pulse Oximetry 99 04/22/24 10:50 Oxygen Delivery Room Air 04/22/24 10:50 Temperature 98.1 F 04/22/24 10:50 Pulse Rate 73 04/22/24 10:50 Respiratory Rate 14 04/22/24 10:50 Blood Pressure 179/121 H 04/22/24 10:50 Pulse Oximetry 100 04/22/24 11:10 Oxygen Delivery Room Air 04/22/24 11:10 Medical Decision Making [facility] Narrative Medical decision making narrative: -Course: 58 year female with history of seizures presenting with a [facility] brain showed a hypodensity likely related to her MS. No other acute findings. Laboratory studies within normal limits. Patient given 1500 mg of Keppra will be given a prescription for Keppra. Patient has appointment with a neurologist in May and encouraged her to call them for [place] quicker appointment. Patient be discharged with return precautions. -DDX includes but is not limited to: Breakthrough seizure, functional neurologic deficits/pseudo seizure, MS flare, infection, dehydration, stress reaction Vital Signs Vital Signs: Vital Signs Temperature 98.1 F 04/22/24 10:50 Pulse Rate 73 04/22/24 10:50 Respiratory Rate 14 04/22/24 10:50 Blood Pressure 179/121 H 04/22/24 10:50 Pulse Oximetry 99 04/22/24 10:50 Oxygen Delivery Room Air 04/22/24 10:50 Temperature 98.1 F 04/22/24 10:50 Pulse Rate 73 04/22/24 10:50 Respiratory Rate 14 04/22/24 10:50 Blood Pressure 179/121 H 04/22/24 10:50 Pulse Oximetry 100 04/22/24 11:10 Oxygen Delivery Room Air 04/22/24 11:10 Lab Data 04/22/24 11:05 04/22/24 11:05 Labs: Lab Results 04/22/24 04/22/24 04/22/24 Range/Units 11:04 11:05 12:06 WBC 7.8 (4.5-10.0) K/mm3 RBC 4.54 (4.2-5.4) M/mm3 Hgb 14.2 (12.0-15.0) g/dL Hct 43.2 (37.0-47.0) % MCV 95.2 (80-100) fl MCH 31.3 (26-34) pg MCHC 32.9 (32-36) g/dl RDW 14.6 H (11.5-14.5) % Plt Count 244 (150-375) k/mm3 MPV 9.1 (7.4-10.4) fl Immature Gran % (Auto) 0.3 (0-0.5) % Neut % (Auto) 60.0 (45.5-73.1) % Lymph % (Auto) 29.8 (18.3-44.2) % Newberry % (Auto) 8.3 (2.6-8.5) % Eos % (Auto) 1.2 (0-4.4) % Baso % (Auto) 0.4 (0.2-1.2) % Lymph # (Auto) 2.32 (0.9-3.2) K/mm3 Newberry # (Auto) 0.7 H (0.1-0.6) K/mm3 Eos # (Auto) 0.1 (0-0.3) K/mm3 Baso # (Auto) 0.0 (0.0-0.1) K/mm3 Abs Immat Gran (auto) 0.02 (0.00-0.031) K/mm3 Absolute Neuts (auto) 4.7 (1.3-6.7) K/mm3 Absolute Nucleated RBC 0.000 (0.0-0.012) K/mm3 Nucleated RBC % 0.0 (0.0-0.2) % Sodium 142 (137-145) mmol/L Potassium 3.2 L (3.4-5.0) mmol/L Chloride 106 (98-107) mmol/L Carbon Dioxide 28 (22-30) mmol/L Anion Gap 8 (4-12) mmol/L BUN 8 (7-17) mg/dL Creatinine 0.74 (0.7-1.0) mg/dL Estim Creat Clear Calc 56 ml/min Estimated GFR > 60 (59 - ) Glucose 105 (65-110) mg/dL Calcium 9.2 (8.4-10.2) mg/dL Total Bilirubin 0.6 (0.2-1.3) mg/dL AST 23 (14-36) U/L ALT 16 (6-35) U/L Alkaline Phosphatase 95 (38-126) U/L Total Protein 7.0 (6.3-8.2) g/dL Albumin 3.6 (3.5-5.1) g/dL Urine Opiates Screen (Negative) Urine Methadone Screen (Negative) Ur Barbiturates Screen (Negative) Ur Phencyclidine Scrn (Negative) Ur Amphetamine Screen (Negative) U Benzodiazepines Scrn (Negative) Urine Cocaine Screen (Negative) U Cannabinoids Screen (Negative) Ethyl Alcohol < 10 (<10) mg/dL Influenza A (RT-PCR) Negative (Negative) Influenza B (RT-PCR) Negative (Negative) RSV (RT-PCR) Negative (Negative) SARS-CoV-2 RNA (RT-PCR) Negative (Negative) 04/22/24 Range/Units 12:54 WBC (4.5-10.0) K/mm3 RBC (4.2-5.4) M/mm3 Hgb (12.0-15.0) g/dL Hct (37.0-47.0) % MCV (80-100) fl MCH (26-34) pg MCHC (32-36) g/dl RDW (11.5-14.5) % Plt Count (150-375) k/mm3 MPV (7.4-10.4) fl Immature Gran % (Auto) (0-0.5) % Neut % (Auto) (45.5-73.1) % Lymph % (Auto) (18.3-44.2) % Newberry % (Auto) (2.6-8.5) % Eos % (Auto) (0-4.4) % Baso % (Auto) (0.2-1.2) % Lymph # (Auto) (0.9-3.2) K/mm3 Newberry # (Auto) (0.1-0.6) K/mm3 Eos # (Auto) (0-0.3) K/mm3 Baso # (Auto) (0.0-0.1) K/mm3 Abs Immat Gran (auto) (0.00-0.031) K/mm3 Absolute Neuts (auto) (1.3-6.7) K/mm3 Absolute Nucleated RBC (0.0-0.012) K/mm3 Nucleated RBC % (0.0-0.2) % Sodium (137-145) mmol/L Potassium (3.4-5.0) mmol/L Chloride (98-107) mmol/L Carbon Dioxide (22-30) mmol/L Anion Gap (4-12) mmol/L BUN (7-17) mg/dL Creatinine (0.7-1.0) mg/dL Estim Creat Clear Calc ml/min Estimated GFR (59 - ) Glucose (65-110) mg/dL Calcium (8.4-10.2) mg/dL Total Bilirubin (0.2-1.3) mg/dL AST (14-36) U/L ALT (6-35) U/L Alkaline Phosphatase (38-126) U/L Total Protein (6.3-8.2) g/dL Albumin (3.5-5.1) g/dL Urine Opiates Screen Negative (Negative) Urine Methadone Screen Negative (Negative) Ur Barbiturates Screen Negative (Negative) Ur Phencyclidine Scrn Negative (Negative) Ur Amphetamine Screen Negative (Negative) U Benzodiazepines Scrn Negative (Negative) Urine Cocaine Screen Negative (Negative) U Cannabinoids Screen Positive A (Negative) Ethyl Alcohol (<10) mg/dL Influenza A (RT-PCR) (Negative) Influenza B (RT-PCR) (Negative) RSV (RT-PCR) (Negative) SARS-CoV-2 RNA (RT-PCR) (Negative) Discharge Plan Discharge Clinical Impression: Seizure Patient Disposition: Home, Self-Care Condition: Stable Instructions: Antibiotic Form, Epilepsy (ED) Additional Instructions: Please take Keppra as directed. Please call your neurologist to arrange closer follow-up if possible. If you develop any new or worsening symptoms please return to the ED for re-evaluation. Patient Language: Romansh Prescriptions: New levetiracetam [Keppra] 500 mg tablet 500 mg PO BID Qty: 60 0RF No Action black cohosh 200 mg capsule 200 mg PO DAILY albuterol sulfate 2.5 mg /3 mL (0.083 %) solution for nebulization 2.5 mg inhalation Q4H PRN (Reason: Shortness Of Breath) omega-3 fatty acids [Fish Oil Concentrate] 1,000 mg capsule 1,000 mg PO DAILY albuterol sulfate [Proventil HFA] 90 mcg/actuation HFA aerosol inhaler 1 puff inhalation Q4H PRN (Reason: shortness of breath or wheezing) Qty: 8.5 5RF ondansetron HCl [Zofran] 4 mg tablet 4 mg PO DAILY PRN (Reason: nausea and vomiting) Qty: 90 1RF diclofenac potassium 25 mg tablet PO DAILY trazodone 150 mg tablet 150 mg PO QHS PRN (Reason: insomnia) Qty: 30 2RF cyclobenzaprine 10 mg tablet 10 mg PO TID PRN (Reason: muscle spasm) Qty: 30 0RF gabapentin 600 mg tablet 600 mg PO BID Qty: 60 0RF lisinopril 5 mg tablet 5 mg PO DAILY Qty: 30 0RF escitalopram oxalate 20 mg tablet 20 mg PO DAILY Qty: 30 0RF prednisone 20 mg tablet 40 mg PO DAILY 5 Days Qty: 10 0RF gabapentin 600 mg tablet 600 mg PO BID Qty: 180 1RF escitalopram oxalate 20 mg tablet 20 mg PO DAILY Qty: 90 1RF Follow-up/Referrals: Raul Ryan MD [Primary Care Provider] -
[2024-04-22 13:51] VITALS: BP 173/83; PULSE 66; RESP 18; O2SAT 99
== END 2024-04-22 14:01 | disposition home or self-care (01) ==
PROVIDERS: Emergency Provider Emergency Medicine; PCP Family Medicine
DX: G40.909 Epilepsy, unspecified, not intractable, without status epilepticus (principal); Z20.822 Contact with and (suspected) exposure to COVID-19; G35 Multiple sclerosis; R73.03 Prediabetes; J45.909 Unspecified asthma, uncomplicated; M19.90 Unspecified osteoarthritis, unspecified site; F32.A Depression, unspecified; F17.210 Nicotine dependence, cigarettes, uncomplicated; Z90.710 Acquired absence of both cervix and uterus; Z79.899 Other long term (current) drug therapy; R94.31 Abnormal electrocardiogram [ECG] [EKG]
CPT/HCPCS: 36415; 70450; 71046; 80053; 80307; 82077; 85025; 87637; 93005; 96361; 96374; 99284; J1953; J7030

== ENCOUNTER 2024-05-17 21:43 | Emergency (ER) | payer MEDICARE, SELFPAY ==
--- NOTE | ~2024-05-17 | CT_ITS ---
EXAMINATION: CT brain wo con DATE: 05/17/2024 22:52 INDICATION: seizure, fall . TECHNIQUE: Computed tomography (CT) of the head was performed 04/22/2024 intravenous contrast. The mA was adjusted according to patient size. Iterative reconstruction technique was employed. The dose-antoinette gth product was 605.33 mGy-cm. COMPARISON: 04/22/2024. FINDINGS: No acute intracranial hemorrhage or extra-axial fluid collection. No hydrocephalus, mass, or herniation. No acute ischemic infarct. Unremarkable dural venous sinus attenuation. No acute osseous abnormality. Right maxillary and left ethmoid retention cyst/polyps, minimal mucosal thickening and aerated secret ions in a right posterior ethmoid sinus, mucosal thickening, aerated secretions and an air-fluid leve l in the left maxillary sinus, the remaining aerated spaces are clear. Mild atrophy and chronic white matter hypodensities, including in the deep left frontoparietal white matter. The latter findings may be related to a reported history of multiple sclerosis. Atherosclerot ic intracranial calcification. IMPRESSION: No acute intracranial process. Left maxillary sinus air-fluid level may reflect acute sinusitis or mucosal hemorrhage in the setting of trauma. Chronic white matter findings which may be related to multiple sclerosis. Prior recommendation for ou tpatient MRI brain without and with contrast is unchanged. Reviewed, dictated and finalized at location K. IMPRESSION: No acute intracranial process. Left maxillary sinus air-fluid level may reflect acute sinusitis or mucosal hem orrhage in the setting of trauma. Chronic white matter findings which may be related to multiple sclerosis. Prior recommendation for outpatient MRI brain without and with contrast is unchanged .
--- OUTSIDE RECORDS SUMMARY | 2024-05-17 21:45 | XMS_ITS | CONTINUITY OF CARE DOCUMENT ---
Author Name yoav, texser Address Unknown Organization [facility] Address [address] [place] [address] Phone [phone] Care Team Providers Care Blanket Maker Name Role Phone Steffany Klein MD Unavailable HERRERA WOODS MD Unavailable [phone] HERRERA WOODS MD Unavailable PROBLEMS Condition Status Date Provider Notes Chest pain stress nuclear at [facility] 06/10 ef 73% active Steffany Klein MD Family History of Hypertension: active ? Tree Klein MD Asthma active Steffany Klein MD Tobacco abuse active Steffany Klein MD ENCOUNTERS Date Type Provider Location Encounter Diagnosis - In-person encounter Office Visit Steffany Klein MD [place] [facility] Chest pain stress nuclear at [facility] 06/10 ef 73%Family History of Hypertension:Asthm aTobacco [...] Payer name Policy type / Coverage type [place] [employer] green party ID [employer] G[employer]US HMO HMO [id number] ADVANCE DIRECTIVES Name Date DISCUSSED - NO DECISION MADE TREATMENT PLAN Date Name Performer Cardiology [facility] follow up To olga Klein MD [facility] follow up To olga Klein MD [facility] Hospital follow up To olga Klein MD HISTORY OF PROCEDURES Procedure Date Procedure Name Provider Procedure Notes S tatus SNOMED-CT: [id number] Current Medications Documented Steffany Klein MD completed
--- OUTSIDE RECORDS SUMMARY | 2024-05-17 21:45 | XMS_ITS | Clinical Summary ---
Author Organization [email or web address] Address [address] [place] [address] Care Team Providers Care Land Management Forester Name Role Phone Patti Springer AMARA-FLOOR INSTALLATION MECHANIC Primary Care Provider [phone] Source Comments [email or web address],non-owned Affiliates and Associated Physician Practices is amultiple site organization consisting of ambulatory clinics and hospital sitesin [place], [place], [place] and [place]. This disclosure is being madepursuant to the Care Everywhere program and may not contain all information available regarding this patient. Last updated 17.[email or web address] Allergies Active Allergy Reactions Criticality Noted Date [...] Take 1 (one) tablet by mouth Active [place]-3 Fatty Acids ([place]-3 Fish Oil) 1000 MG capsule Take by [...] 50 11/20/2022 4:33 PM CDT Temperature 36.6 C (97.9 F) 11/20/2022 4:35 PM CDT Respiratory Rate 13 11/20/2022 4:33 PM CDT Oxygen Saturation 97% 11/20/2022 1:43 PM CDT Inhaled Oxygen Concentration - - Weight 51.7 kg (114 lb) 11/20/2022 1:43 PM CDT Height 160 cm (5' 3 ) 11/20/2022 1:43 PM CDT Body Mass Index 20.19 11/20/2022 1:43 PM CDT Plan of Treatment Health Maintenance Due Date Last Done Comments COLOGUARD (AGES 45-75) - COLON CA SCREENING 1964 COLON MONITORING 1964 COLONOSCOPY - COLON CA SCREENING 1964 CT COLONOGRAPHY - COLON CA SCREENING 1964 Colorectal Cancer Screening 1964 FIT - COLON CA SCREENING 1964 FLEX SIG - COLON CA SCREENING 1964 MAMMOGRAM 1964 PAP SMEAR 1964 HIV SCREENING 09/13/1979 HEPATITIS C SCREENING 09/08/1982 DTAP/TDAP/TD VACCINES (1 - Tdap) 09/13/1983 HEPATITIS B VACCINE (1 of 3 - 19+ 3-dose series) 09/13/1983 PNEUMOCOCCAL VACCINE 50+ (1 of 2 - PCV) 09/13/1983 PNEUMOCOCCAL VACCINE (1 of 2 - PCV) 09/13/1983 ZOSTER VACCINE (1 of 2) 2014 COVID-19 VACCINE (2 - season) 2023 05/25/2020 INFLUENZA VACCINE (#1) 2023 03/26/2017, 2015 DEPRESSION SCREENING 02/25/2024 MEDICARE AWV CALENDAR YEAR 2024 LIPID TESTING 01/02/2027 01/02/2022, 06/24, 07/12/2021, Additional history exists HIB VACCINE Aged Out No longer eligi ble based on patient's age to complete this topic HPV VACCINE Aged Out No longer eligi ble based on patient's age to complete this topic MENINGOCOCCAL (Group B) VACCINE SHARED DECISION-MAKING Aged Out No longer eligible based on patient's age to complete this topic MENINGOCOCCAL GROUPS A/C/Y/W VACCINE Aged Out No longer eligible based on patient's age to complete this topic Care Teams Land Management Forester Relationship Specialty Start Date End Date Patti Springer, COORDINATE MEASURING MACHINE OPERATOR-FLOOR INSTALLATION MECHANIC PCP - General Nurse Practitioner 03/22/22
--- OUTSIDE RECORDS SUMMARY | 2024-05-17 21:46 | XMS_ITS | Clinical Summary ---
Author Organization [facility] Address [facility] [place] [address] Care Team Providers Care Global Logistics Analyst Name Role Phone Kannan Aguirre Primary Care Provider [phone] Allergies Active Allergy Reactions Criticality Noted Date [...] mg total) by mouth daily. 30 tablet Active methylPREDNISol one, BERTHA, (MEDROL DOSEPAK) 4 MG tablet 6 TABLETS ON DAY ONE, 5 TABLETS DAY TWO, 4 TABLETS DAY THREE, 3 TABLETS DAY FOUR, 2 TABLETS DAY FIVE, AND 1 TABLET DAY SIX 1 each 5 Active Active Problems Problem Noted Date Diagnosed Date Headache 05/18/2021 Encounters Date Type Department Care Team Description 03/25/2024 1:35 PM STEAM TURBINE OPERATOR - 03/25/2024 4:58 PM STEAM TURBINE OPERATOR Emergency [facility] [place] [address] Chago Patel PA Headache; Diarrhea Discharge Disposition: Home or Self Care (Routine Discharge) 03/25/2024 Travel from Last 3 Months Family History Medical History Relation Comments Stroke Mother Relation Status Comments Mother Social History Tobacco Use Types Packs/Day Years Used Date Smoking Tobacco: Every Day Cigarettes 0.5 40 Smokeless Tobacco: Never Tobacco Cessation:Ready to Q uit: Not Asked; Counseling Given: Not Answered Alcohol Use Standard Drinks/Week Comments Not Currently 0 (1 standard drink = 0.6 oz pur e alcohol) Comments No Sex and Gender Information Value Date Recorded Sex Assigned at Female 03/25/2024 1:21 PM STEAM TURBINE OPERATOR Legal Sex Female 3:39 PM STEAM TURBINE OPERATOR Gender Identity Not on file Sexual Orientation Not on file Last Filed Vital Signs Vital Sign Reading Time Taken Comments Blood Pressure 108/81 03/25/2024 3:41 PM STEAM TURBINE OPERATOR Pulse 67 03/25/2024 3:41 PM STEAM TURBINE OPERATOR Temperature 36.4 C (97.5 F) 03/25/2024 3:41 PM STEAM TURBINE OPERATOR Respiratory Rate 18 03/25/2024 3:41 PM STEAM TURBINE OPERATOR Oxygen Saturation 100% 03/25/2024 3:41 PM STEAM TURBINE OPERATOR Inhaled Oxygen Concentration - - Weight 46.1 kg (101 lb 10.1 oz) 025 12:49 PM STEAM TURBINE OPERATOR Height 157.5 cm (5' 2 ) 03/25/2024 12:4 9 PM STEAM TURBINE OPERATOR Body Mass Index 18.59 03/25/2024 12:49 PM STEAM TURBINE OPERATOR Plan of Treatment Health Maintenance Due Date Last Done Comments Colorectal Cancer Screening Colonoscopy (10 Years) 1964 Annual Physical 09/13/1967 Hepatitis C 1982 DTaP, Tdap and Td Vaccines ( 1 - Tdap) 09/13/1983 Zoster Vaccines (1 of 2) 2014 Pneumococcal Vaccine: Pediatrics (0 to 5 Years) and At-Risk Patients (6 to 64 Years) (2 of 2 - PPSV23 or PCV20) 01/18/2016 11/23/2015 Mammogram Screening 12/23/2018 12/23/2016, 02/20/2015 Lung Cancer Screening 03/22/2023 03/22/2022 , 02/20/2015 COVID-19 Vaccine (4 - 2023-2 5 season) [...] to perform ADLs independently General 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 Procedure Name Priority Date/Time Associated Diagnosis Comments CT ABD+PEL W CON STAT 03/25/2024 2:47 PM STEAM TURBINE OPERATOR LIPASE STAT 03/25/2024 1:59 PM STEAM TURBINE OPERATOR COMPREHENSIVE METABOLIC PANEL STAT 03/25/2024 1:59 PM STEAM TURBINE OPERATOR CBC W/DIFF AUTOMATED STAT 03/25/2024 1:59 PM STEAM TURBINE OPERATOR XR CHEST PA+LAT STAT 03/25/2024 1:40 PM STEAM TURBINE OPERATOR from Last 3 Months Results * CT ABD+PEL W IV CON ONLY (03/25/2024 2:47 PM STEAM TURBINE OPERATOR) Anatomical Region Laterality Modality Abdomen Computed Tomogra phy 03/25/2024 3:56 PM STEAM TURBINE OPERATOR Impressions 03/25/2024 4:01 PM STEAM TURBINE OPERATOR =====IMPRESSION:===== 1. No acute inflammatory change, abscess nor ascites. 2. No evidence of mechanical bowel obstruction or perforation. Bowel gas pattern suggests ileus. 3. No evidence of ureteral stone nor hydronephrosis on either side. 4. Lumbar scoliosis convex to the right with advanced chronic degenerative disc disease at L3-4. Ordered By: CHAGO PATEL Interpreted By: Cedric Callejas MD, 03/25/2024 3:56 PM Narrative 03/25/2024 4:01 PM STEAM TURBINE OPERATOR [address] [address] EXAMINATION: CT Abdomen and Pelvis with contrast EXAM DATE/TIME: 03/25/2024 2:43 PM REASON FOR EXAM: abd, diarrhea COMPARISON: None TECHNIQUE: Computed tomography of the abdomen and pelvis was obtained after administration of 100 mL Isovue 300 intravenous contrast. Sagittal and coronal reconstruction. A dose lowering technique was used for this procedure, which may include, but is not limited to, dose reduction technique, automated exposure control, iterative reconstruction, ALARA (As Low As Reasonably Achievable), or Image Gently techniques. FINDINGS: CT ABDOMEN: Visualized portions of the lung bases demonstrate no acute abnormality. No significant hiatal hernia. The liver is at the upper limits of normal for size. No significant focal intrahepatic lesions are demonstrated. No evidence of cholelithiasis or gallbladder wall thickening. No biliary duct dilatation. The spleen, pancreas, and the adrenal glands are unremarkable. The kidneys demonstrate no evidence of abnormal striated nephrogram nor acute perirenal inflammatory stranding or fluid. There is no evidence of ureteral stone nor hydronephrosis on either side. No evidence of solid renal mass lesion. There is no acute inflammatory change, abscess nor ascites. No evidence of mechanical bowel obstruction or perforation. Bowel gas pattern suggests ileus. No significant lymphadenopathy. Abdominal aorta and IVC are unremarkable. CT PELVIS: No pelvic mass nor adenopathy. No acute inflammatory change, abscess nor ascites. Atherosclerotic vascular calcifications are noted. There is lumbar scoliosis convex to the right with severe chronic degenerative disc disease/spondylosis at L3-4. Procedure Note Cedric Callejas MD - 03/25/[address] [address] EXAMINATION: CT Abdomen and Pelvis with contrast EXAM DATE/TIME: 03/25/2024 2:43 PM REASON FOR EXAM: abd, diarrhea COMPARISON: None TECHNIQUE: Computed tomography of the abdomen and pelvis was obtainedafter administration of 100 mL Isovue 300 intravenous contrast. [place] coronal reconstruction. A dose lowering technique was used for thisprocedure, which may include, but is not limited to, dose reductiontechnique, automated exposure control, iterative reconstruction, ALARA (AsLow As Reasonably Achievable), or Image Gently techniques. FINDINGS: CT ABDOMEN: Visualized portions of the lung bases demonstrate no acuteabnormality. No significant hiatal hernia. The liver is at the upper limits of normal for size. No significant focalintrahepatic lesions are demonstrated. No evidence of cholelithiasis orgallbladder wall thickening. No biliary duct dilatation. The spleen, pancreas, and the adrenal glands are unremarkable. The kidneys demonstrate no evidence of abnormal striated nephrogram noracute perirenal inflammatory stranding or fluid. There is no evidence ofureteral stone nor hydronephrosis on either side. No evidence of solidrenal mass lesion. There is no acute inflammatory change, abscess nor ascites. No evidence ofmechanical bowel obstruction or perforation. Bowel gas pattern suggestsileus. No significant lymphadenopathy. Abdominal aorta and IVC areunremarkable. CT PELVIS: No pelvic mass nor adenopathy. No acute inflammatory change,abscess nor ascites. Atherosclerotic vascular calcifications are noted. There is lumbar scoliosis convex to the right with severe chronicdegenerative disc disease/spondylosis at L3-4. =====IMPRESSION:===== 1. No acute inflammatory change, abscess nor ascites. 2. No evidence of mechanical bowel obstruction or perforation. Bowel gaspattern suggests ileus. 3. No evidence of ureteral stone nor hydronephrosis on either side. 4. Lumbar scoliosis convex to the right with advanced chronic degenerativedisc disease at L3-4. Ordered By: CHAGO PATEL Interpreted By: Cedric Callejas MD, 03/25/2024 3:56 PM us Chago Patel PA CT Final Resul t * (ABNORMAL) COMPREHENSIVE METABOLIC PANEL (03/25/2024 1:59 PM STEAM TURBINE OPERATOR) GLUCOSE 138(H) 70 - 99 MG/DL 03/25/2024 2:33 PM STEAM TURBINE OPERATOR [facility] BUN 25(H) 7 - 18 MG/DL 03/25/2024 2:33 PM STEAM TURBINE OPERATOR [facility] CREATININE S/P/B 1.52(H) 0.55 - 1.02 MG/DL 03/25/2024 2:33 PM STEAM TURBINE OPERATOR [facility] SODIUM S/P/B 134(L) 136 - 145 MMOL/L 03/25/2024 2:33 PM STEAM TURBINE OPERATOR [facility] POTASSIUM S/P/B 3.5 3.5 - 5.1 MMOL/L 03/25/2024 2:33 PM STEAM TURBINE OPERATOR [facility] CHLORIDE S/P/B 102 97 - 115 MMOL/L 03/25/2024 2:33 PM STEAM TURBINE OPERATOR [facility] CO2 27.8 21 - 32 MMOL/L 03/25/2024 2:33 PM [facility] CALCIUM S/P/B 9.3 8.5 - 10.1 MG/DL 03/25/2024 2:33 PM [facility] BILIRUBIN TOTAL S/P/B 0.3 0.2 - 1.2 MG/DL 03/25/2024 2:33 PM [facility] Comment: THIS ASSAY IS NOT RECOMMENDED FOR PATIENTS UNDERGOING TREATMENT WITH ELTROMBOPAG DUE TO THE POTENTIAL FOR FALSELY ELEVATED RESULTS. TOTAL PROTEIN S/P/B 7.6 6.4 - 8.2 G/DL 03/25/2024 2:33 PM [facility] ALBUMIN S/P/B 3.8 3.4 - 5.0 G/DL 03/25/2024 2:33 PM [facility] AST 35 15 - 37 U/L 03/25/2024 2:33 PM [facility] ALT 24 14 - 55 U/L 03/25/2024 2:33 PM [facility] ALKALINE PHOSPHATASE S/P/B 95 50 - 136 U/L 03/25/2024 2:33 PM [facility] ANION GAP 4.2 2 - 10 MMOL/L 03/25/2024 2:33 PM [facility] BUN CREATININE RATIO 16.4 6 - 26 03/25/2024 2:33 PM [facility] A/G RATIO 1.0 1.0 - 2.0 RATIO 03/25/2024 2:33 PM [facility] GFR ESTIMATE 39(L) >90 ML/MIN/1.7 3 M2 03/25/2024 2:33 PM [facility] Comment: NOTE: eGFR is not calculated for patients <18 years of age or gender unknown. This is an estimated GFR calculation using the new CKD EPI creatinine equation without race and so does not require a correction factor for race. This estimated GFR should not be used for calculating drug doses. 03/25/2024 1:59 PM STEAM TURBINE OPERATOR [facility] Final Resul t [facility] [address] [place] [address], * (ABNORMAL) CBC W/DIFF AUTOMATED (03/25/2024 1:59 PM STEAM TURBINE OPERATOR) Pathologist [facility] WBC 7.95 4.5 - 11.0 x10'3/uL 03/25/2024 2:10 PM STEAM TURBINE OPERATOR [facility] RBC 5.34 4.20 - 5.40 x10'6/uL 03/25/2024 2:10 PM STEAM TURBINE OPERATOR [facility] HGB 16.6(H) 12.0 - 16.0 G/DL 03/25/2024 2:10 PM STEAM TURBINE OPERATOR [facility] HCT 49.3(H) 38.0 - 48.0 % 03/25/2024 2:10 PM STEAM TURBINE OPERATOR [facility] MCV 92.3 81.0 - 99.0 FL 03/25/2024 2:10 PM STEAM TURBINE OPERATOR [facility] MCH 31.1(H) 27.0 - 31.0 PG 03/25/2024 2:10 PM STEAM TURBINE OPERATOR [facility] MCHC 33.7 32.0 - 36.0 G/DL 03/25/2024 2:10 PM STEAM TURBINE OPERATOR [facility] RDW 13.7 11.5 - 14.5 % 03/25/2024 2:10 PM STEAM TURBINE OPERATOR [facility] PLT 265 130 - 400 x10'3/uL 03/25/2024 2:10 PM STEAM TURBINE OPERATOR [facility] MPV 9.9 9.3 - 12.2 FL 03/25/2024 2:10 PM STEAM TURBINE OPERATOR [facility] DIFFERENTIAL TYPE AUTOMATED DIFFERENTIAL 03/25/2024 2:10 PM STEAM TURBINE OPERATOR [facility] NEUTROPHILS % 54.7 % 03/25/2024 2:10 PM STEAM TURBINE OPERATOR [facility] LYMPHOCYTES % 30.7 % 03/25/2024 2:10 PM STEAM TURBINE OPERATOR [facility] MONOCYTES % 13.0 % 03/25/2024 2:10 PM STEAM TURBINE OPERATOR [facility] EOSINOPHILS 0.8 % 03/25/2024 2:10 PM STEAM TURBINE OPERATOR [facility] BASOPHILS 0.4 % 03/25/2024 2:10 PM STEAM TURBINE OPERATOR [facility] IMMATURE GRANS % 0.4 % 03/25/19 2:10 PM STEAM TURBINE OPERATOR [facility] ABS. NEUTROPHILS 4.36 1.80 - 7.70 x10'3/uL 03/25/2024 2:10 PM STEAM TURBINE OPERATOR [facility] ABS. LYMPHOCYTES 2.44 1.00 - 4.80 x10'3/uL 03/25/2024 2:10 PM STEAM TURBINE OPERATOR [facility] ABS. MONOCYTES 1.03(H) 0.24 - 0.86 x10'3/uL 03/25/2024 2:10 PM STEAM TURBINE OPERATOR [facility] ABS. EOSINOPHILS 0.06 0.04 - 0.36 x10'3/uL 03/25/2024 2:10 PM STEAM TURBINE OPERATOR [facility] ABS. BASOPHILS 0.03 0.01 - 0.08 x10'3/uL 03/25/2024 2:10 PM STEAM TURBINE OPERATOR [facility] ABS. IMMATURE GRANULOCYTES 0.03 0.00 - 0.49 x10'3/uL 03/25/2024 2:10 PM STEAM TURBINE OPERATOR [facility] 03/25/2024 1:59 PM STEAM TURBINE OPERATOR us [facility] Final Resul t [facility] [address] [place] [address], [place] [phone] * (ABNORMAL) LIPASE (03/25/2024 1:59 PM STEAM TURBINE OPERATOR) LIPASE 85(H) 13 - 75 UNITS/L 03/25/2024 2:33 PM STEAM TURBINE OPERATOR [facility] 03/25/2024 1:59 PM STEAM TURBINE OPERATOR [facility] Final Resul t [facility] [address] [place] [address], [place] [phone] * XR CHEST PA+LAT (03/25/2024 1:40 PM STEAM TURBINE OPERATOR) Anatomical Region Laterality Modality Chest Radiographic Keira ging 03/25/2024 1:44 PM STEAM TURBINE OPERATOR Impressions 03/25/2024 1:46 PM STEAM TURBINE OPERATOR IMPRESSION: No acute cardiopulmonary findings. Referred By: Interpreted By: Higinio Rosenthal MD, 03/25/2024 1:44 PM Narrative 03/25/2024 1:46 PM STEAM TURBINE OPERATOR [address] [address] XR CHEST PA+LAT INDICATION: cough, productive TECHNIQUE: PA and lateral views of the chest. COMPARISON: Chest radiograph 05/17/2021. FINDINGS: The cardiomediastinal silhouette is within normal limits. There is no acute pulmonary consolidation. No pleural effusions or pneumothorax. No acute osseous abnormality. Mild thoracic spondylosis. Atherosclerotic calcifications of the thoracic aorta. Procedure Note Higinio Rosenthal MD - 03/25/2024 [facility] [address] [place], [place] [address] XR CHEST PA+LAT INDICATION: cough, productive TECHNIQUE: PA and lateral views of the chest. COMPARISON: Chest radiograph 05/17/2021. FINDINGS: The cardiomediastinal silhouette is within normal limits. There is noacute pulmonary consolidation. No pleural effusions or pneumothorax. Noacute osseous abnormality. Mild thoracic spondylosis. Atheroscleroticcalcifications of the thoracic aorta. IMPRESSION: No acute cardiopulmonary findings. Referred By: Interpreted By: Higinio Rosenthal MD, 03/25/2024 1:44 PM [facility] Final Resul t from Last 3 Months Insurance MARYDEL Other [employer] Advance Directives * Full Code (Latest Code Status on File) Date Activated Date Inactivated Comments 05/18/2021 9:56 AM 05/19/2021 7:34 PM Care Teams Global Logistics Analyst Relationship Specialty Start Date End Date Kannan Aguirre DO [address] [place], [place] [id number] PCP - General INTERNAL MEDICINE 05/17/21
--- NOTE | 2024-05-17 21:48 | ECG_ITS ---
Test Date: 2024-05-17 21:52:52 Measurements Intervals [place] Rate: 64 P: 10 SD: 184 QRS: 29 QRSD: 96 T: 44 QT: 401 QTc: 416 Interpretive Statements SINUS RHYTHM MINIMAL VOLTAGE CRITERIA FOR LVH, CONSIDER NORMAL VARIANT [MEETS CRITERIA IN ONE OF: R(aVL), S(V1), R(V5), R(V5/V6)+S(V1)] Compared to ECG 04/22/2024 11:01:23 No significant changes Electronically Signed On 05-18-2024 16:04:03 CDT by Thu Bullard M.D.
[2024-05-17 21:49] VITALS: BP 136/95; PULSE 73; RESP 15; O2SAT 99
[2024-05-17 21:51] VITALS: O2SAT 98
--- NOTE | 2024-05-17 22:17 | ED.SEIZURE ---
HPI - Seizure General Chief Complaint: Seizure Stated Complaint: seizure Time Seen by Provider: 05/17/24 22:03 Source: patient Mode of arrival: ambulatory Limitations: no limitations History of Present Illness HPI Narrative: This is a 58-year-old female who presents to the ED for chief complaint of seizure-like activity x2 prior to arrival. Patient is with her boyfriend and his family member who were with her at the bar [facility]. Patient states that she has MS and has had history of seizures with MS. States that she was started on Keppra 3 weeks ago and has been taking this at 500 mg b.i.d.. States that she has not missed her doses. Boyfriend states that the patient started to have a shaking episode and they lowered her to the ground. States that this lasted for a few seconds. They report the patient came back to full consciousness and of 5 minute period. They state that she had another episode while they were pulling into the parking lot that was similar per she quickly came back to full consciousness. Patient states that she can feel her seizures come on, however is unsure of what happened [facility]. Denies any current complaints. Related Data Home Medications ?Medication ?Instructions ?Recorded ?Confirmed ?Last Taken ?Type albuterol sulfate 2.5 mg/3 mL 2.5 mg inhalation Q4H PRN 09/19/20 01/02/21 Unknown History (0.083 %) solution for nebulization Shortness Of Breath omega-3 fatty acids 1,000 mg 1,000 mg PO DAILY 09/19/20 01/02/21 Unknown History capsule (Fish Oil Concentrate) black cohosh 200 mg capsule 200 mg PO DAILY 12/06/20 01/02/21 Unknown History diclofenac potassium 25 mg tablet mg PO DAILY 01/02/21 01/02/21 Unknown History Allergies Allergy/AdvReac Type Severity Reaction Status Date / Time aspirin Allergy Severe BLEEDING Verified 05/17/24 21:58 cefdinir Allergy Severe Itching Verified 05/17/24 21:58 clindamycin Allergy Severe luis miguel Verified 05/17/24 21:58 alice cydrome codeine Allergy Severe Shortness Verified 05/17/24 21:58 of breath acetaminophen Allergy Intermediate JITTERY Verified 05/17/24 21:58 FEELING, LEGS TWITCHEY COCONUT Allergy Severe HIVES AND Uncoded 05/17/24 21:58 THROAT SWELLING sulfur Allergy Severe Itching Uncoded 05/17/24 21:58 Honey Bee Allergy Mild Anaphylactic Uncoded 05/17/24 21:58 Shock plastic tape AdvReac Severe Rash Uncoded 05/17/24 21:58 Review of Systems Review of Systems: All systems as dictated in [facility] Past Medical History Medical History Arthritis Borderline diabetes Bronchial asthma Bulging discs Depression Migraines Surgical History Surgical History H/O abdominal hysterectomy H/O breast biopsy right and left H/O removal of cyst H/O tooth extraction H/O tubal ligation Family History Family History Father Alcoholism Heart problem Mother Alcoholism Hypertension Heart problem Sibling Alcoholism Colon cancer Diabetes mellitus Depression Anxiety Heart problem Thyroid disorder Social History Social History Social History: the patient has 3 children and she is . She occasionally smokes marijuana. She lives with a couple that she considers her adoptive parents. This patient stated that she smokes a couple cigarettes a day. No alcohol. She is currently unemployed and is on disability. The patient does not have a durable power transactional attorney and is a full code. Smoking packs per day: 0.5 Smoking cigarettes per day: 10.0 Years smoked: 44 Smoking pack-years: 22.00 Smoking status: Current every day smoker Tobacco type: cigarettes Second hand tobacco smoke exposure: Yes Alcohol intake: current Drinks per week: 2 Substance use: current Substance use type: marijuana Last use: 11/15/20 Spiritual care concerns: No Exam Narrative: GENERAL: Well-appearing, well-nourished, and in no acute distress. HEAD: Normocephalic, atraumatic. EYES: PERRLA and EOMI. ENT: Nares clear, no rhinorrhea or epistaxis. Mucous membranes moist. Oropharynx without tonsillar hypertrophy exudate or other lesions. No lacerations to the tongue, lips or oral mucosa. NECK: Supple. No adenopathy or masses. CHEST: No respiratory distress. Clear to auscultation. No wheezes rales or rhonchi HEART: Regular rate and rhythm. No murmur heard. Normal peripheral pulses. ABDOMEN: Soft, nontender, nondistended, normal active bowel sounds. MSK: Normal range of motion. No edema. SKIN: Warm, dry, no rash. NEURO: Alert and oriented x4. No focal deficits. PSYCH: Normal mood and affect. Course Course Emergency Course: Above 5 minutes after my initial examination, was called into the room along with attending physician for the patient having a seizure. Patient was intermittent shaking arms and legs. During these episodes of shaking, patient was responding to my questions. Episode disturbed immediately by noxious stimuli. Vital Signs Vital signs: Vital Signs Pulse Rate 73 05/17/24 21:49 Respiratory Rate 15 05/17/24 21:49 Blood Pressure 136/95 H 05/17/24 21:49 Pulse Oximetry 99 05/17/24 21:49 Oxygen Delivery Room Air 05/17/24 21:49 Pulse Rate 73 05/17/24 21:49 Respiratory Rate 15 05/17/24 21:49 Blood Pressure 136/95 H 05/17/24 21:49 Pulse Oximetry 98 05/17/24 21:51 Oxygen Delivery Room Air 05/17/24 21:51 MDM - Seizure MDM Narrative Medical decision making narrative: This is a 58-year-old female with PMH of MS who presents to the ED for to seizure-like activity x2 tonight. Vitals are normal. Exam is unremarkable overall. Presentation does not appear to be consistent with epileptic seizure on arrival due to patient's neurologic exam and lack of other signs of epileptic seizure. Lab work shows normal lactic acid and is overall unremarkable. CT brain is negative for acute findings. EKG shows sinus rhythm. Patient was given loading dose of Keppra for possible breakthrough seizure. Patient is well-appearing on re-evaluation. She feels ready to go home and will follow-up closely with her neurologist. Patient will be discharged in stable condition. Supportive measures discussed and return precautions given. Patient is understanding and agreeable with plan for discharge with neurology follow-up Lab Data 05/17/24 22:25 05/17/24 22:25 Labs: Lab Results 05/17/24 Range/Units 22:25 WBC 11.0 H (4.5-10.0) K/mm3 RBC 4.33 (4.2-5.4) M/mm3 Hgb 13.6 (12.0-15.0) g/dL Hct 40.7 (37.0-47.0) % MCV 94.0 (80-100) fl MCH 31.4 (26-34) pg MCHC 33.4 (32-36) g/dl RDW 14.1 (11.5-14.5) % Plt Count 324 (150-375) k/mm3 MPV 9.7 (7.4-10.4) fl Immature Gran % (Auto) 0.3 (0-0.5) % Neut % (Auto) 41.5 L (45.5-73.1) % Lymph % (Auto) 46.6 H (18.3-44.2) % Glenn % (Auto) 8.5 (2.6-8.5) % Eos % (Auto) 2.5 (0-4.4) % Baso % (Auto) 0.6 (0.2-1.2) % Lymph # (Auto) 5.11 H (0.9-3.2) K/mm3 Glenn # (Auto) 0.9 H (0.1-0.6) K/mm3 Eos # (Auto) 0.3 (0-0.3) K/mm3 Baso # (Auto) 0.1 (0.0-0.1) K/mm3 Abs Immat Gran (auto) 0.03 (0.00-0.031) K/mm3 Absolute Neuts (auto) 4.6 (1.3-6.7) K/mm3 Absolute Nucleated RBC 0.000 (0.0-0.012) K/mm3 Nucleated RBC % 0.0 (0.0-0.2) % Sodium 139 (137-145) mmol/L Potassium 3.8 (3.4-5.0) mmol/L Chloride 107 (98-107) mmol/L Carbon Dioxide 22 (22-30) mmol/L Anion Gap 10 (4-12) mmol/L BUN 12 (7-17) mg/dL Creatinine 0.90 (0.7-1.0) mg/dL Estim Creat Clear Calc 47 ml/min Estimated GFR > 60 (59 - ) Glucose 94 (65-110) mg/dL Lactic Acid 1.4 (0.7-2.0) mmol/L Calcium 9.5 (8.4-10.2) mg/dL Total Bilirubin 0.5 (0.2-1.3) mg/dL AST 29 (14-36) U/L ALT 15 (6-35) U/L Alkaline Phosphatase 82 (38-126) U/L Total Protein 7.0 (6.3-8.2) g/dL Albumin 4.1 (3.5-5.1) g/dL Discharge Plan Discharge Clinical Impression: Seizure-like activity Patient Disposition: Home, Self-Care Condition: Stable Instructions: Antibiotic Form, Nonepileptic Seizures (ED) Additional Instructions: Your exam and imaging today are reassuring overall. Please follow-up closely with Dr. Mota. Continue taking your normal medications. If you have any new or worsening symptoms please return to the ER for further evaluation. Patient Language: Botswanan Prescriptions: No Action black cohosh 200 mg capsule 200 mg PO DAILY albuterol sulfate 2.5 mg /3 mL (0.083 %) solution for nebulization 2.5 mg inhalation Q4H PRN (Reason: Shortness Of Breath) omega-3 fatty acids [Fish Oil Concentrate] 1,000 mg capsule 1,000 mg PO DAILY albuterol sulfate [Proventil HFA] 90 mcg/actuation HFA aerosol inhaler 1 puff inhalation Q4H PRN (Reason: shortness of breath or wheezing) Qty: 8.5 5RF ondansetron HCl [Zofran] 4 mg tablet 4 mg PO DAILY PRN (Reason: nausea and vomiting) Qty: 90 1RF diclofenac potassium 25 mg tablet PO DAILY trazodone 150 mg tablet 150 mg PO QHS PRN (Reason: insomnia) Qty: 30 2RF cyclobenzaprine 10 mg tablet 10 mg PO TID PRN (Reason: muscle spasm) Qty: 30 0RF levetiracetam [Keppra] 500 mg tablet 500 mg PO BID Qty: 60 0RF gabapentin 600 mg tablet 600 mg PO BID Qty: 60 0RF lisinopril 5 mg tablet 5 mg PO DAILY Qty: 30 0RF escitalopram oxalate 20 mg tablet 20 mg PO DAILY Qty: 30 0RF prednisone 20 mg tablet 40 mg PO DAILY 5 Days Qty: 10 0RF gabapentin 600 mg tablet 600 mg PO BID Qty: 180 1RF escitalopram oxalate 20 mg tablet 20 mg PO DAILY Qty: 90 1RF Follow-up/Referrals: Raul Ryan MD [Primary Care Provider] - Choco Mota MD [Physician] - Time of Disposition: 23:18
[2024-05-17] MEDS: levETIRAcetam 1500MG/NACL100ML 1,500 MG/100 ML BAG 400 MG IVPB (22:21)
[2024-05-17 22:30] LABS: Basophils Absolute Auto 0.1 K/mm3 (0.0-0.1); Basophils Percent Auto 0.6 % (0.2-1.2); Eosinophils Absolute Auto 0.3 K/mm3 (0-0.3); Eosinophils Percent Auto 2.5 % (0-4.4); Hematocrit 40.7 % (37.0-47.0); Hemoglobin 13.6 g/dL (12.0-15.0); Immature Granulocyte Absolute 0.03 K/mm3 (0.00-0.031); Immature Granulocyte Percent A 0.3 % (0-0.5); Lymphocytes Absolute Auto 5.11 K/mm3 (0.9-3.2); Lymphocytes Percent Auto 46.6 % (18.3-44.2); Mean Corpuscular HGB Conc 33.4 g/dl (32-36); Mean Corpuscular Hemoglobin 31.4 pg (26-34); Mean Platelet Volume 9.7 fl (7.4-10.4); Monocytes Absolute Auto 0.9 K/mm3 (0.1-0.6); Monocytes Percent Auto 8.5 % (2.6-8.5); Neutrophils Absolute Auto 4.6 K/mm3 (1.3-6.7); Neutrophils Percent Auto 41.5 % (45.5-73.1); Platelet Count Result 324 k/mm3 (150-375); Red Blood Count 4.33 M/mm3 (4.2-5.4); Red Cell Distribution Width 14.1 % (11.5-14.5)
[2024-05-17 22:42] LABS: Alanine Aminotransferase 15 U/L (6-35); Albumin Level 4.1 g/dL (3.5-5.1); Alkaline Phosphatase 82 U/L (38-126); Anion Gap 10 mmol/L (4-12); Aspartate Amino Transferase 29 U/L (14-36); Bilirubin,Total 0.5 mg/dL (0.2-1.3); Blood Urea Nitrogen 12 mg/dL (7-17); Calcium 9.5 mg/dL (8.4-10.2); Carbon Dioxide 22 mmol/L (22-30); Chloride 107 mmol/L (98-107); Estimated CRCL calculation 47 ml/min; Estimated Glomerular Filt Rate > 60; Glucose 94 mg/dL (65-110); Potassium 3.8 mmol/L (3.4-5.0); Sodium 139 mmol/L (137-145)
[2024-05-17 22:43] LABS: Lactic Acid Reflex 1.4 mmol/L (0.7-2.0)
--- OUTSIDE RECORDS SUMMARY | 2024-05-17 23:14 | XMS_ITS | Clinical Summary ---
Author Organization [facility] Address [address] [place] [address] Care Team Providers Care Baker Pie Name Role Phone Patti Springer AMARA-BOAT DIESEL MOTOR MECHANIC Primary Care Provider [phone] Source Comments [facility],non-owned Affiliates and Associated Physician Practices is amultiple site organization consisting of ambulatory clinics and hospital sitesin [place], [place], [place] and [place]. This disclosure is being madepursuant to the Care Everywhere program and may not contain all information available regarding this patient. Last updated 17.[facility] Allergies Active Allergy Reactions Criticality Noted Date [...] Take 1 (one) tablet by mouth Active [place]-3 Fatty Acids ([place]-3 Fish Oil) 1000 MG capsule Take by [...] age to complete this topic Care Teams Baker Pie Relationship Specialty Start Date End Date Patti Springer, LOADING UNIT OPERATOR-BOAT DIESEL MOTOR MECHANIC PCP - General Nurse Practitioner 03/22/22
--- OUTSIDE RECORDS SUMMARY | 2024-05-17 23:14 | XMS_ITS | Clinical Summary ---
Author Organization [facility] Address [facility] [place] [address] Care Team Providers Care Circuit Walker Name Role Phone Kannan Aguirre Primary Care Provider [phone] Allergies Active Allergy Reactions Criticality Noted Date [...] Department Care Team Description 03/25/2024 1:35 PM COMMISSIONING MANAGER - 03/25/2024 4:58 PM COMMISSIONING MANAGER Emergency [facility] [place] [address] Chago Patel PA Headache; Diarrhea Discharge Disposition: [...] Sex Assigned at Female 03/25/2024 1:21 PM COMMISSIONING MANAGER Legal Sex Female 3:39 PM COMMISSIONING MANAGER Gender Identity Not on file Sexual Orientation Not on file Last Filed Vital Signs Vital Sign Reading Time Taken Comments Blood Pressure 108/81 03/25/2024 3:41 PM COMMISSIONING MANAGER Pulse 67 03/25/2024 3:41 PM COMMISSIONING MANAGER Temperature 36.4 C (97.5 F) 03/25/2024 3:41 PM COMMISSIONING MANAGER Respiratory Rate 18 03/25/2024 3:41 PM COMMISSIONING MANAGER Oxygen Saturation 100% 03/25/2024 3:41 PM COMMISSIONING MANAGER Inhaled Oxygen Concentration - - Weight 46.1 kg (101 lb 10.1 oz) 025 12:49 PM COMMISSIONING MANAGER Height 157.5 cm (5' 2 ) 03/25/2024 12:4 9 PM COMMISSIONING MANAGER Body Mass Index 18.59 03/25/2024 12:49 PM COMMISSIONING MANAGER Plan of Treatment Health Maintenance Due Date [...] perform ADLs independently General No Debbi Lin electron beam photo mask maker Procedure Name Priority Date/Time Associated Diagnosis Comments CT ABD+PEL W CON STAT 03/25/2024 2:47 PM COMMISSIONING MANAGER LIPASE STAT 03/25/2024 1:59 PM COMMISSIONING MANAGER COMPREHENSIVE METABOLIC PANEL STAT 03/25/2024 1:59 PM COMMISSIONING MANAGER CBC W/DIFF AUTOMATED STAT 03/25/2024 1:59 PM COMMISSIONING MANAGER XR CHEST PA+LAT STAT 03/25/2024 1:40 PM COMMISSIONING MANAGER from Last 3 Months Results * CT ABD+PEL W IV CON ONLY (03/25/2024 2:47 PM COMMISSIONING MANAGER) Anatomical Region Laterality Modality Abdomen Computed Tomogra phy 03/25/2024 3:56 PM COMMISSIONING MANAGER Impressions 03/25/2024 4:01 PM COMMISSIONING MANAGER =====IMPRESSION:===== 1. No acute inflammatory change, abscess [...] 03/25/2024 3:56 PM Narrative 03/25/2024 4:01 PM COMMISSIONING MANAGER [address] [address] EXAMINATION: CT Abdomen and Pelvis with contrast [...] Procedure Note Cedric Callejas MD - 03/25/[address] [address] EXAMINATION: CT Abdomen and Pelvis with contrast [...] (ABNORMAL) COMPREHENSIVE METABOLIC PANEL (03/25/2024 1:59 PM COMMISSIONING MANAGER) GLUCOSE 138(H) 70 - 99 MG/DL 03/25/2024 2:33 PM COMMISSIONING MANAGER [facility] BUN 25(H) 7 - 18 MG/DL 03/25/2024 2:33 PM COMMISSIONING MANAGER [facility] CREATININE S/P/B 1.52(H) 0.55 - 1.02 MG/DL 03/25/2024 2:33 PM COMMISSIONING MANAGER [facility] SODIUM S/P/B 134(L) 136 - 145 MMOL/L 03/25/2024 2:33 PM COMMISSIONING MANAGER [facility] POTASSIUM S/P/B 3.5 3.5 - 5.1 MMOL/L 03/25/2024 2:33 PM COMMISSIONING MANAGER [facility] CHLORIDE S/P/B 102 97 - 115 MMOL/L 03/25/2024 2:33 PM COMMISSIONING MANAGER [facility] CO2 27.8 21 - 32 MMOL/L 03/25/2024 2:33 PM [facility] CALCIUM S/P/B 9.3 8.5 - 10.1 MG/DL 03/25/2024 2:33 PM [facility] BILIRUBIN TOTAL S/P/B 0.3 0.2 - 1.2 MG/DL 03/25/2024 2:33 PM [facility] Comment: THIS ASSAY IS NOT RECOMMENDED FOR PATIENTS UNDERGOING TREATMENT WITH ELTROMBOPAG DUE TO THE POTENTIAL FOR FALSELY ELEVATED RESULTS. TOTAL PROTEIN S/P/B 7.6 6.4 - 8.2 G/DL 03/25/2024 2:33 PM [facility] ALBUMIN S/P/B 3.8 3.4 - 5.0 G/DL 03/25/2024 2:33 PM [facility] AST 35 15 - 37 U/L 03/25/2024 2:33 PM [facility] ALT 24 14 - 55 U/L 03/25/2024 2:33 PM [facility] ALKALINE PHOSPHATASE S/P/B 95 50 - 136 U/L 03/25/2024 2:33 PM [facility] ANION GAP 4.2 2 - 10 MMOL/L 03/25/2024 2:33 PM [facility] BUN CREATININE RATIO 16.4 6 - 26 03/25/2024 2:33 PM [facility] A/G RATIO 1.0 1.0 - 2.0 RATIO 03/25/2024 2:33 PM [facility] GFR ESTIMATE 39(L) >90 ML/MIN/1.7 3 M2 03/25/2024 2:33 PM [facility] Comment: NOTE: eGFR is not calculated for patients <18 years of age or gender unknown. This is an estimated GFR calculation using the new CKD EPI creatinine equation without race and so does not require a correction factor for race. This estimated GFR should not be used for calculating drug doses. 03/25/2024 1:59 PM COMMISSIONING MANAGER [facility] Final Resul t [facility] [address] [place] [address], * (ABNORMAL) CBC W/DIFF AUTOMATED (03/25/2024 1:59 PM COMMISSIONING MANAGER) Pathologist [facility] WBC 7.95 4.5 - 11.0 x10'3/uL 03/25/2024 2:10 PM COMMISSIONING MANAGER [facility] RBC 5.34 4.20 - 5.40 x10'6/uL 03/25/2024 2:10 PM COMMISSIONING MANAGER [facility] HGB 16.6(H) 12.0 - 16.0 G/DL 03/25/2024 2:10 PM COMMISSIONING MANAGER [facility] HCT 49.3(H) 38.0 - 48.0 % 03/25/2024 2:10 PM COMMISSIONING MANAGER [facility] MCV 92.3 81.0 - 99.0 FL 03/25/2024 2:10 PM COMMISSIONING MANAGER [facility] MCH 31.1(H) 27.0 - 31.0 PG 03/25/2024 2:10 PM COMMISSIONING MANAGER [facility] MCHC 33.7 32.0 - 36.0 G/DL 03/25/2024 2:10 PM COMMISSIONING MANAGER [facility] RDW 13.7 11.5 - 14.5 % 03/25/2024 2:10 PM COMMISSIONING MANAGER [facility] PLT 265 130 - 400 x10'3/uL 03/25/2024 2:10 PM COMMISSIONING MANAGER [facility] MPV 9.9 9.3 - 12.2 FL 03/25/2024 2:10 PM COMMISSIONING MANAGER [facility] DIFFERENTIAL TYPE AUTOMATED DIFFERENTIAL 03/25/2024 2:10 PM COMMISSIONING MANAGER [facility] NEUTROPHILS % 54.7 % 03/25/2024 2:10 PM COMMISSIONING MANAGER [facility] LYMPHOCYTES % 30.7 % 03/25/2024 2:10 PM COMMISSIONING MANAGER [facility] MONOCYTES % 13.0 % 03/25/2024 2:10 PM COMMISSIONING MANAGER [facility] EOSINOPHILS 0.8 % 03/25/2024 2:10 PM COMMISSIONING MANAGER [facility] BASOPHILS 0.4 % 03/25/2024 2:10 PM COMMISSIONING MANAGER [facility] IMMATURE GRANS % 0.4 % 03/25/19 2:10 PM COMMISSIONING MANAGER [facility] ABS. NEUTROPHILS 4.36 1.80 - 7.70 x10'3/uL 03/25/2024 2:10 PM COMMISSIONING MANAGER [facility] ABS. LYMPHOCYTES 2.44 1.00 - 4.80 x10'3/uL 03/25/2024 2:10 PM COMMISSIONING MANAGER [facility] ABS. MONOCYTES 1.03(H) 0.24 - 0.86 x10'3/uL 03/25/2024 2:10 PM COMMISSIONING MANAGER [facility] ABS. EOSINOPHILS 0.06 0.04 - 0.36 x10'3/uL 03/25/2024 2:10 PM COMMISSIONING MANAGER [facility] ABS. BASOPHILS 0.03 0.01 - 0.08 x10'3/uL 03/25/2024 2:10 PM COMMISSIONING MANAGER [facility] ABS. IMMATURE GRANULOCYTES 0.03 0.00 - 0.49 x10'3/uL 03/25/2024 2:10 PM COMMISSIONING MANAGER [facility] 03/25/2024 1:59 PM COMMISSIONING MANAGER [facility] Final Resul t [facility] [address] [place] [address], [place] [phone] * (ABNORMAL) LIPASE (03/25/2024 1:59 PM COMMISSIONING MANAGER) LIPASE 85(H) 13 - 75 UNITS/L 03/25/2024 2:33 PM COMMISSIONING MANAGER [facility] 03/25/2024 1:59 PM COMMISSIONING MANAGER [facility] Final Resul t [facility] [address] [place] [address], [place] [phone] * XR CHEST PA+LAT (03/25/2024 1:40 PM COMMISSIONING MANAGER) Anatomical Region Laterality Modality Chest Radiographic Keira ging 03/25/2024 1:44 PM COMMISSIONING MANAGER Impressions 03/25/2024 1:46 PM COMMISSIONING MANAGER IMPRESSION: No acute cardiopulmonary findings. Referred By: Interpreted By: Higinio Rosenthal MD, 03/25/2024 1:44 PM Narrative 03/25/2024 1:46 PM COMMISSIONING MANAGER [address] [address] XR CHEST PA+LAT INDICATION: cough, productive TECHNIQUE: PA and lateral views of the chest. COMPARISON: Chest radiograph 05/17/2021. FINDINGS: The cardiomediastinal silhouette is within normal limits. There is no acute pulmonary consolidation. No pleural effusions or pneumothorax. No acute osseous abnormality. Mild thoracic spondylosis. Atherosclerotic calcifications of the thoracic aorta. Procedure Note Higinio Rosenthal MD - 03/25/2024 [facility] [address] [place], [place] [address] XR CHEST PA+LAT INDICATION: cough, productive TECHNIQUE: [...] Resul t from Last 3 Months Insurance [employer] Advance Directives * Full Code (Latest Code Status on File) Date Activated Date Inactivated Comments 05/18/2021 9:56 AM 05/19/2021 7:34 PM Care Teams Circuit Walker Relationship Specialty Start Date End Date Kannan Aguirre DO [address] [place], [place] [id number] PCP - General INTERNAL MEDICINE 05/17/21
--- OUTSIDE RECORDS SUMMARY | 2024-05-17 23:14 | XMS_ITS | CONTINUITY OF CARE DOCUMENT ---
Author Name yoav, texser Address Unknown Organization [facility] Address [address] [place] [address] Phone [phone] Care Team Providers Care Compo Conveyor Operator Name Role Phone Steffany Klein MD Unavailable HERRERA WOODS MD Unavailable HERRERA WOODS MD Unavailable [phone] PROBLEMS Condition Status Date Provider Notes Chest pain stress nuclear at [facility] 06/10 ef 73% active Steffany Klein MD Family History of Hypertension: active ? Tree Klein MD Asthma active Steffany Klein MD Tobacco abuse active Steffany Klein MD ENCOUNTERS Date Type Provider Location Encounter Diagnosis - In-person encounter Office Visit Steffany Klein MD [place] [facility] Chest pain stress nuclear at [facility] 06/10 ef 73%Family History of Hypertension:Asthm aTobacco [...] Payer name Policy type / Coverage type [place] [employer] HMO [id number] ADVANCE DIRECTIVES Name Date DISCUSSED - NO DECISION MADE TREATMENT PLAN Date Name Performer Cardiology [facility] follow up To olga Klein MD [facility] follow up To olga Klein MD [facility] Hospital follow up To olga Klein MD HISTORY OF PROCEDURES Procedure Date Procedure Name Provider Procedure Notes S tatus SNOMED-CT: [id number] Current Medications Documented Steffany Klein MD completed
[2024-05-17 23:30] VITALS: BP 136/99; PULSE 73; RESP 24; O2SAT 98
== END 2024-05-17 23:31 | disposition home or self-care (01) ==
PROVIDERS: Emergency Provider Physician Assistant; PCP Family Medicine
DX: R56.9 Unspecified convulsions (principal); G35 Multiple sclerosis; R73.03 Prediabetes; J45.909 Unspecified asthma, uncomplicated; F17.210 Nicotine dependence, cigarettes, uncomplicated
CPT/HCPCS: 36415; 70450; 80053; 83605; 85025; 93005; 96365; 99284; J1953

== ENCOUNTER 2025-01-18 13:51 | Emergency (ER) | payer SELFPAY ==
--- NOTE | ~2025-01-18 | XR_ITS ---
EXAMINATION: XR chest 2V DATE: 01/18/2025 15:22 INDICATION: Weakness. TECHNIQUE: Frontal and lateral views of the chest were obtained. COMPARISON: Chest x-ray dated the 04/22/2024. FINDINGS: Size is borderline enlarged. Lungs are free of process. Scoliosis of the spine. IMPRESSION: 1. No acute findings. Mild cardiomegaly and atherosclerotic aorta. Reviewed, dictated and finalized at location T. [employer]
[2025-01-18 14:00] VITALS: BP 160/95; PULSE 72; RESP 18; TEMP 37; O2SAT 98
--- NOTE | 2025-01-18 14:38 | ED_ITS ---
HPI - Extremity Problem General Chief complaint: Unspecified <Chasity Steward PA-C - Last Filed: 01/18/25 18:19> Stated complaint: MS AND FIBROMYALGIA PROBLEM <Chasity Steward PA-C - Last Filed: 01/18/25 18:19> Time Seen by Provider: 01/18/25 14:38 <Chasity Steward PA-C - Last Filed: 01/18/25 18:19> Focused HPI: This is a 59 year old female that presents to the ER for fibromyalgia flare. Reports she is in a lot of pain. Ongoing since last night. No recent injuries. Pain is all over her body. She takes Gabapentin and Aleve for pain. She feels dehydrated. GENERAL: Well-appearing, well-nourished, and in no acute distress. HEAD: Normocephalic, atraumatic. CHEST: Clear to auscultation. ?No respiratory distress. HEART: Regular rate and rhythm.? NEURO: ?Alert and oriented x3. Patient screened in triage and initial orders placed.? ?Additional care and disposition to be based upon?diagnostic testing and treatment. <Chasity Steward PA-C - Last Filed: 01/18/25 18:19> Related Data Home medications: Home Medications ?Medication ?Instructions ?Recorded ?Confirmed ?Last Taken ?Type albuterol sulfate 2.5 mg/3 mL 2.5 mg inhalation Q4H TN N 09/19/20 01/02/21 Unknown History (0.083 %) solution for nebulization Shortness Of Breat h omega-3 fatty acids 1,000 mg 1,000 mg PO DAILY 1 01/02/21 Unknown History capsule (Fish Oil Concentrate) black cohosh 200 mg capsule 200 mg PO DAILY 12/06/20 1 03/04/20 Unknown History diclofenac potassium 25 mg tablet mg PO DAILY 01/02/21 01/02/21 Unknown History <GEMA Coffey Last Filed: 01/18/25 18:19> Allergies/Adverse reactions: Allergies Allergy/AdvReac Type Severity Reaction Status Date / Time aspirin Allergy Severe BLEEDING Verified 01/18/25 13:52 cefdinir Allergy Severe Itching Verified 01/18/25 13:52 clindamycin Allergy Severe luis miguel Verified 01/18/25 13:52 alice cydrome codeine Allergy Severe Shortness Verified 01/18/25 13:52 of breath acetaminophen Allergy Intermediate JITTERY Verified 01/18/25 13:52 FEELING, LEGS TWITCHEY COCONUT Allergy Severe HIVES AND Uncoded 05/17/24 21:58 THROAT SWELLING sulfur Allergy Severe Itching Uncoded 05/17/24 21:58 Honey Bee Allergy Mild Anaphylactic Uncoded 05/17/24 21:58 Shock plastic tape AdvReac Severe Rash Uncoded 05/17/24 21:58 <Chasity Steward PA-C - Last Filed: 01/18/25 18:19> Review of Systems 2 Review of Systems: All systems reviewed & are unremarkable except as noted in HPI and below <Chasity Steward PA-C - Last Filed: 01/18/25 18:19> [facility]LY [facility] Past Medical History Medical History: Medical History Arthritis Borderline diabetes Bronchial asthma Bulging discs Depression Migraines <Chasity Steward PA-C - Last Filed: 01/18/25 18:19> Surgical History Surgical History: Surgical History H/O abdominal hysterectomy H/O breast biopsy right and left H/O removal of cyst H/O tooth extraction H/O tubal ligation <Chasity Steward PA-C - Last Filed: 01/18/25 18:19> Family History Family History: Family History Father Alcoholism Heart problem Mother Alcoholism Hypertension Heart problem Sibling Alcoholism Colon cancer Diabetes mellitus Depression Anxiety Heart problem Thyroid disorder <Chasity Steward PA-C - Last Filed: 01/18/25 18:19> Social History Social History: Social History Social History: the patient has 3 children and she is . She occasionally smokes marijuana. She lives with a couple that she considers her adoptive parents. This patient stated that she smokes a couple cigarettes a day. No alcohol. She is currently unemployed and is on disability. The patient does not have a durable power patent attorney and is a full code. Smoking packs per day: 0.5 Smoking cigarettes per day: 10.0 Years smoked: 44 Smoking pack-years: 22.00 Smoking status: Current every day smoker Tobacco type: cigarettes Second hand tobacco smoke exposure: Yes Alcohol intake: current Drinks per week: 2 Substance use: current Substance use type: marijuana Last use: 11/15/20 Spiritual care concerns: No <Chasity Steward PA-C - Last Filed: 01/18/25 18:19> Exam 2 Narrative: APPEARANCE: Well appearing, no pain, no distress, well-nourished. HEAD: normocephalic, atraumatic. EYES: PERRLA/EOMI, conjunctivae clear. NOSE: Normal no drainage EARS:TMS clear with good light reflex. THROAT: Pharynx clear, no exudate. NECK: Supple. No adenopathy, no masses. RESPIRATORY: Airway patent, respirations nonlabored. Clear to auscultation bilaterally, no rales, rhonchi, wheezing. CARDIOVASCULAR: Regular rate and rhythm without murmurs rubs or gallops. ABDOMINAL: Soft, nontender, nondistended, normal bowel sounds MUSCULOSKELETAL: Moves all extremities. Strength/ROM intact, No edema, No calf tenderness. NEURO: Alert. Cranial nerves II through XII intact. Good gait. Good coordination SKIN: Warm, dry. Normal Color <Frandy Banuelos MD - Last Filed: 01/18/25 19:05> Course Vital Signs Vital signs: Vital Signs Temperature 98.6 F 01/18/25 14:00 Pulse Rate 72 01/18/25 14:00 Respiratory Rate 18 01/18/25 14:00 Blood Pressure 160/95 H 01/18/25 14:00 Pulse Oximetry 98 01/18/25 14:00 Oxygen Delivery Room Air 01/18/25 14:00 Temperature 97.6 F 01/18/25 17:17 Pulse Rate 56 L 01/18/25 17:17 Respiratory Rate 16 01/18/25 17:17 Blood Pressure 177/95 H 01/18/25 17:17 Pulse Oximetry 100 01/18/25 17:17 Oxygen Delivery Room Air 01/18/25 14:00 <Chasity Steward PA-C - Last Filed: 01/18/25 18:19> Vital Signs Temperature 98.6 F 01/18/25 14:00 Pulse Rate 72 01/18/25 14:00 Respiratory Rate 18 01/18/25 14:00 Blood Pressure 160/95 H 01/18/25 14:00 Pulse Oximetry 98 01/18/25 14:00 Oxygen Delivery Room Air 01/18/25 14:00 Temperature 97.6 F 01/18/25 17:17 Pulse Rate 56 L 01/18/25 17:17 Respiratory Rate 16 01/18/25 17:17 Blood Pressure 177/95 H 01/18/25 17:17 Pulse Oximetry 100 01/18/25 17:17 Oxygen Delivery Room Air 01/18/25 14:00 <Frandy Banuelos MD - Last Filed: 01/18/25 19:05> MDM - Extremity (Nontraumatic) MDM Narrative Medical decision making narrative: 59-year-old female presenting to the emergency department for evaluation for complaint of did analyzed body aches and fatigue. Patient is currently afebrile with no leukocytosis and a stable hemoglobin of 13.9. No acute abnormalities on her CMP UA is negative for infection. Chest x-ray shows no acute cardiopulmonary abnormality. EKG showed normal sinus rhythm. Patient states she does feel better after fluid rehydration. Patient states she just recently moved from [facility] and does not have a local primary care physician. Patient states that she does not have a neurologist. Patient was provided outpatient follow-up with a primary care physician and with neurologist. Patient was also educated on reasons to return to the emergency department. All questions concerns were addressed patient is well appearing at time of discharge. <Frandy Banuelos MD - Last Filed: 01/18/25 19:05> Lab Data Result diagrams: 01/18/25 15:06 01/18/25 15:06 <JUAN RAMON Coffey-Ebony - Last Filed: 01/18/25 18:19> Labs: Lab Results 01/18/25 Range/Units 15:06 WBC 9.3 (4.5-10.0) K/mm3 RBC 4.45 (4.2-5.4) M/mm3 Hgb 13.9 (12.0-15.0) g/dL Hct 41.8 (37.0-47.0) % MCV 93.9 (80-100) fl MCH 31.2 (26-34) pg MCHC 33.3 (32-36) g/dl RDW 14.0 (11.5-14.5) % Plt Count 281 (150-375) k/mm3 MPV 9.0 (7.4-10.4) fl Immature Gran % (Auto) 0.3 (0-0.5) % Neut % (Auto) 52.2 (45.5-73.1) % Lymph % (Auto) 33.2 (18.3-44.2) % Clinch % (Auto) 11.3 H (2.6-8.5) % Eos % (Auto) 2.5 (0-4.4) % Baso % (Auto) 0.5 (0.2-1.2) % Lymph # (Auto) 3.07 (0.9-3.2) K/mm3 Clinch # (Auto) 1.1 H (0.1-0.6) K/mm3 Eos # (Auto) 0.2 (0-0.3) K/mm3 Baso # (Auto) 0.1 (0.0-0.1) K/mm3 Abs Immat Gran (auto) 0.03 (0.00-0.031) K/mm3 Absolute Neuts (auto) 4.8 (1.3-6.7) K/mm3 Absolute Nucleated RBC 0.000 (0.0-0.012) K/mm3 Nucleated RBC % 0.0 (0.0-0.2) % Sodium 139 (137-145) mmol/L Potassium 3.8 (3.4-5.0) mmol/L Chloride 107 (98-107) mmol/L Carbon Dioxide 28 (22-30) mmol/L Anion Gap 4 (4-12) mmol/L BUN 16 (7-17) mg/dL Creatinine 0.96 (0.7-1.0) mg/dL Estim Creat Clear Calc 41 ml/min Estimated GFR 59 (59 - ) Glucose 90 (65-110) mg/dL Calcium 9.5 (8.4-10.2) mg/dL Total Bilirubin 0.3 (0.2-1.3) mg/dL AST 27 (14-36) U/L ALT 14 (6-35) U/L Alkaline Phosphatase 97 (38-126) U/L Total Protein 7.0 (6.3-8.2) g/dL Albumin 4.1 (3.5-5.1) g/dL Urine Color Yellow (Yellow) Urine Appearance Clear (Clear) Urine pH 6.5 (5.0-9.0) Ur Specific [place] 1.012 (1.001-1.035) Urine Protein Negative (Negative) mg/dL Urine Glucose (UA) Negative (Negative) mg/dL Urine Ketones Negative (Negative) mg/dL Ur Blood (Man) Negative (Negative) Urine Nitrate Negative (Negative) Urine Bilirubin Negative (Negative) Urine Urobilinogen 0.2 (<2.0) mg/dL Leukocyte Esterase Rfl Trace H (Negative) JELLY/UL Urine RBC 0-2 (0-2) /hpf Urine WBC 0-5 (0-3) /hpf Ur Squamous Epith Cells Occasional (Few) /hpf Urine Bacteria None seen /hpf Urine Casts 0-2 <Chasity Steward PA-C - Last Filed: 01/18/25 18:19> Lab Results 01/18/25 Range/Units 15:06 WBC 9.3 (4.5-10.0) K/mm3 RBC 4.45 (4.2-5.4) M/mm3 Hgb 13.9 (12.0-15.0) g/dL Hct 41.8 (37.0-47.0) % MCV 93.9 (80-100) fl MCH 31.2 (26-34) pg MCHC 33.3 (32-36) g/dl RDW 14.0 (11.5-14.5) % Plt Count 281 (150-375) k/mm3 MPV 9.0 (7.4-10.4) fl Immature Gran % (Auto) 0.3 (0-0.5) % Neut % (Auto) 52.2 (45.5-73.1) % Lymph % (Auto) 33.2 (18.3-44.2) % Clinch % (Auto) 11.3 H (2.6-8.5) % Eos % (Auto) 2.5 (0-4.4) % Baso % (Auto) 0.5 (0.2-1.2) % Lymph # (Auto) 3.07 (0.9-3.2) K/mm3 Clinch # (Auto) 1.1 H (0.1-0.6) K/mm3 Eos # (Auto) 0.2 (0-0.3) K/mm3 Baso # (Auto) 0.1 (0.0-0.1) K/mm3 Abs Immat Gran (auto) 0.03 (0.00-0.031) K/mm3 Absolute Neuts (auto) 4.8 (1.3-6.7) K/mm3 Absolute Nucleated RBC 0.000 (0.0-0.012) K/mm3 Nucleated RBC % 0.0 (0.0-0.2) % Sodium 139 (137-145) mmol/L Potassium 3.8 (3.4-5.0) mmol/L Chloride 107 (98-107) mmol/L Carbon Dioxide 28 (22-30) mmol/L Anion Gap 4 (4-12) mmol/L BUN 16 (7-17) mg/dL Creatinine 0.96 (0.7-1.0) mg/dL Estim Creat Clear Calc 41 ml/min Estimated GFR 59 (59 - ) Glucose 90 (65-110) mg/dL Calcium 9.5 (8.4-10.2) mg/dL Total Bilirubin 0.3 (0.2-1.3) mg/dL AST 27 (14-36) U/L ALT 14 (6-35) U/L Alkaline Phosphatase 97 (38-126) U/L Total Protein 7.0 (6.3-8.2) g/dL Albumin 4.1 (3.5-5.1) g/dL Urine Color Yellow (Yellow) Urine Appearance Clear (Clear) Urine pH 6.5 (5.0-9.0) Ur Specific [place] 1.012 (1.001-1.035) Urine Protein Negative (Negative) mg/dL Urine Glucose (UA) Negative (Negative) mg/dL Urine Ketones Negative (Negative) mg/dL Ur Blood (Man) Negative (Negative) Urine Nitrate Negative (Negative) Urine Bilirubin Negative (Negative) Urine Urobilinogen 0.2 (<2.0) mg/dL Leukocyte Esterase Rfl Trace H (Negative) JELLY/UL Urine RBC 0-2 (0-2) /hpf Urine WBC 0-5 (0-3) /hpf Ur Squamous Epith Cells Occasional (Few) /hpf Urine Bacteria None seen /hpf Urine Casts 0-2 <Frandy Banuelos MD - Last Filed: 01/18/25 19:05> Imaging Data Radiologist's impression: ITS Impressions Chest X-Ray 01/18/25 15:23 IMPRESSION: 1. No acute findings. Mild cardiomegaly and atherosclerotic aorta. <Chasity Steward PA-C - Last Filed: 01/18/25 18:19> Discharge Plan Discharge Clinical Impression: Dehydration <Chasity Steward PA-C - Last Filed: 01/18/25 18:19> Patient Disposition: Home <Chasity Steward PA-C - Last Filed: 01/18/25 18:19> Condition: Stable <Chasity Steward PA-C - Last Filed: 01/18/25 18:19> Instructions: Antibiotic Form <Chasity Steward PA-C - Last Filed: 01/18/25 18:19> Additional Instructions: Call to follow-up with a primary care physician. Call to follow up with a neurologist. If you have any worsening symptoms please call or return to the emergency department. <Chasity Steward PA-C - Last Filed: 01/18/25 18:19> Patient Language: French <Chasity Steward PA-C - Last Filed: 01/18/25 18:19> Prescriptions: No Action black cohosh 200 mg capsule 200 mg PO DAILY albuterol sulfate 2.5 mg /3 mL (0.083 %) solution for nebulization 2.5 mg inhalation Q4H PRN (Reason: Shortness Of Breath) omega-3 fatty acids [Fish Oil Concentrate] 1,000 mg capsule 1,000 mg PO DAILY albuterol sulfate [Proventil HFA] 90 mcg/actuation HFA aerosol inhaler 1 puff inhalation Q4H PRN (Reason: shortness of breath or wheezing) Qty: 8.5 5RF ondansetron HCl [Zofran] 4 mg tablet 4 mg PO DAILY PRN (Reason: nausea and vomiting) Qty: 90 1RF diclofenac potassium 25 mg tablet PO DAILY trazodone 150 mg tablet 150 mg PO QHS PRN (Reason: insomnia) Qty: 30 2RF cyclobenzaprine 10 mg tablet 10 mg PO TID PRN (Reason: muscle spasm) Qty: 30 0RF levetiracetam [Keppra] 500 mg tablet 500 mg PO BID Qty: 60 0RF gabapentin 600 mg tablet 600 mg PO BID Qty: 60 0RF lisinopril 5 mg tablet 5 mg PO DAILY Qty: 30 0RF escitalopram oxalate 20 mg tablet 20 mg PO DAILY Qty: 30 0RF prednisone 20 mg tablet 40 mg PO DAILY 5 Days Qty: 10 0RF gabapentin 600 mg tablet 600 mg PO BID Qty: 180 1RF escitalopram oxalate 20 mg tablet 20 mg PO DAILY Qty: 90 1RF <Chasity Steward PA-C - Last Filed: 01/18/25 18:19> Follow-up/Referrals: Joce Galvan DO [Physician, Family Practice] Jung Nur MD [Physician, Neurology] PHYSICIAN,HVAC MECHANICAL ENGINEER [Primary Care Provider, Internal Medicine] <Chasity Steward PA-C - Last Filed: 01/18/25 18:19>
--- NOTE | 2025-01-18 14:41 | ECG_ITS ---
Test Date: 2025-01-18 14:59:08 Measurements Intervals [place] Rate: 69 P: 46 [place]: 179 QRS: 52 QRSD: 84 T: 59 QT: 391 QTc: 421 Interpretive Statements SINUS RHYTHM WITHIN NORMAL LIMITS Compared to ECG 05/17/2024 21:52:52 No significant changes Electronically Signed On 01-18-2025 17:35:59 WIRE FRAME LAMPSHADE MAKER by César Maria M.D.
[2025-01-18 15:13] LABS: Hematocrit 41.8 % (37.0-47.0); Hemoglobin 13.9 g/dL (12.0-15.0); Immature Granulocyte Percent A 0.3 % (0-0.5); Lymphocytes Absolute Auto 3.07 K/mm3 (0.9-3.2); Mean Corpuscular HGB Conc 33.3 g/dl (32-36); Mean Corpuscular Hemoglobin 31.2 pg (26-34); Mean Corpuscular Volume 93.9 fl (80-100); Nucleated Red Blood Cells Absolute Auto 0.000 K/mm3 (0.0-0.012); Nucleated Red Blood Cells Perc 0.0 % (0.0-0.2); Platelet Count Result 281 k/mm3 (150-375); Red Blood Count 4.45 M/mm3 (4.2-5.4); White Blood Count 9.3 K/mm3 (4.5-10.0)
[2025-01-18 15:23] LABS: Add Urine Microscopic? YES; Appearance Urine Clear (Clear); Glucose Urine UA Negative (Negative); Leukocyte Esterase Ur Trace LEU/UL (Negative); Nitrate Urine Negative (Negative); Non Pathogenic Casts 0-2; Specific Grav Ur 1.012 (1.001-1.035)
[2025-01-18 15:24] LABS: Alanine Aminotransferase 14 U/L (6-35); Albumin Level 4.1 g/dL (3.5-5.1); Alkaline Phosphatase 97 U/L (38-126); Anion Gap 4 mmol/L (4-12); Aspartate Amino Transferase 27 U/L (14-36); Bilirubin,Total 0.3 mg/dL (0.2-1.3); Blood Urea Nitrogen 16 mg/dL (7-17); Calcium 9.5 mg/dL (8.4-10.2); Carbon Dioxide 28 mmol/L (22-30); Chloride 107 mmol/L (98-107); Estimated CRCL calculation 41 ml/min; Estimated Glomerular Filt Rate 59; Glucose 90 mg/dL (65-110); Potassium 3.8 mmol/L (3.4-5.0); Sodium 139 mmol/L (137-145); Total Protein 7.0 g/dL (6.3-8.2)
--- OUTSIDE RECORDS SUMMARY | 2025-01-18 15:44 | XMS_ITS | Clinical Summary ---
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 Tape Rash Low 05/17/2021 Medications albuterol [...] Sex Assigned at Female 03/25/2024 1:21 PM DIRECTOR CAREER Legal Sex Female 3:39 PM DIRECTOR CAREER Gender Identity Not on file Sexual Orientation Not on file Last Filed Vital Signs Vital Sign Reading Time Taken Comments Blood Pressure 108/81 03/25/2024 3:41 PM DIRECTOR CAREER Pulse 67 03/25/2024 3:41 PM DIRECTOR CAREER Temperature 36.4 C (97.5 F) 03/25/2024 3:41 PM DIRECTOR CAREER Respiratory Rate 18 03/25/2024 3:41 PM DIRECTOR CAREER Oxygen Saturation 100% 03/25/2024 3:41 PM DIRECTOR CAREER Inhaled Oxygen Concentration - - Weight 46.1 kg (101 lb 10.1 oz) 025 12:49 PM DIRECTOR CAREER Height 157.5 cm (5' 2) 03/25/2024 12:4 9 PM DIRECTOR CAREER Body Mass Index 18.59 03/25/2024 12:49 PM DIRECTOR CAREER Plan of Treatment Health Maintenance Due Date Last Done Comments Colorectal Cancer Screening Colonoscopy (10 Years) 1964 Annual Physical 09/13/1967 Hepatitis C 1982 DTaP, Tdap and Td Vaccines ( 1 - Tdap) 09/13/1983 Zoster Vaccines (1 of 2) 2014 Pneumococcal Vaccine: 50+ Years (2 of 2 - PPSV23, PCV20, or PCV21) 01/18/2016 11/23/2015 Mammogram Screening 12/23/2018 12/23/2016, 02/20/2015 Lung Cancer Screening 03/22/2023 03/22/2022 , 02/20/2015 COVID-19 Vaccine (4 - 2024-2 6 season) 2024 06/17/2020, 05/27/2020, 05/25/2020 Influenza Adult (#1) 2024 03/26/2017, 11/23/2015 RSV Immunization or 60+ Years (1 - 1-dose 75+ series) 09/13/2039 Hepatitis A Vaccines Aged Out No long er eligible based on patient's age to complete this topic Meningococcal B Vaccine Aged Out No l [...] independently General No Debbi Lin, RN Insurance [employer] Advance Directives * Full Code (Latest Code Status on File) Date Activated Date Inactivated Comments 05/18/2021 9:56 AM 05/19/2021 7:34 PM Care Teams Cartridge Belt Puncher Relationship Specialty Start Date End Date Kannan Aguirre DO [address] [address] PCP - General INTERNAL MEDICINE 05/17/21
--- OUTSIDE RECORDS SUMMARY | 2025-01-18 15:44 | XMS_ITS | Clinical Summary ---
Author Organization [facility] Address [address] [place] [address] Care Team Providers Care Parts Lister Name Role Phone Patti Springer AMARA-RETAIL ANALYST Primary Care Provider [phone] Source Comments [facility],non-owned Affiliates and Associated Physician Practices is amultiple site organization consisting of ambulatory clinics and hospital sitesin [place], [place], [place] and [place]. This disclosure is being madepursuant to the Care Everywhere program and may not contain all information available regarding this patient. Last updated 17.[facility] Allergies Active Allergy Reactions Criticality Noted Date Comments Aspirin 03/18/2014 Cefdinir Urticaria,Itching High 03/21/2015 Clindamycin 03/18/2014 Coconut Oil Anaphylaxis High 07/29/2016 Codeine 03/18/2014 Skin Adhesives Rash Medium 03/08/2022 Sulfa Drugs 03/18/2014 Acetaminophen 03/18/2014 Medications * Be aware that medications may not be up to date on this document. Alwaysverify current medications with the patient. doxycycline (VIBRAMYCIN) 100 MG capsule Take 1 Cap by mouth 2 times daily. 14 Cap 0 5 Active Additional Information Patient not taking.Reported on 03/08/2022 albuterol HFA (PROVENTIL;VENT DIANA;PROAIR) 108 (90 BASE) MCG/ACT inhaler Inhale 2 Puffs by mouth every 4 hours as needed for Shortness of Breath or Wheezing. 1 Inhaler 1 5 Active predniSONE (DELTASONE) 20 MG tablet Take 2 Tabs by mouth once daily. 10 Tab 0 5 Active Additional Information Patient not taking.Reported on 03/08/2022 azithromycin (ZITHROMAX) 250 MG tablet Take 2 tablets(500 mg) by mouth today, then one tablet(250 mg) by mouth for the next four days 6 Tab 0 5 Active Additional Information Patient not taking.Reported on 03/08/2022 methylPREDNISol one (MEDROL DOSEPAK) 4 MG tablet Take by mouth as directed. 21 Packet 0 5 Active Additional Information Patient not taking.Reported on 03/08/2022 albuterol HFA (PROVENTIL;VENT DIANA;PROAIR) 108 (90 BASE) MCG/ACT inhaler Inhale 2 Puffs by mouth every 4 hours as needed for Shortness of Breath or Wheezing. 1 Inhaler 1 5 Active traMADol (ULTRAM) 50 MG tablet Take 1 Tab by mouth every 4 hours as needed for Pain. 20 Tab 0 5 Active cyclobenzaprine (FLEXERIL) 10 MG tablet Take 1 Tab by mouth 3 times daily as needed for Muscle Spasms. 10 Tab 0 5 Active traMADol (ULTRAM) 50 MG tablet Take 1 tablet by mouth every 8 hours as needed for Pain 10 tablet 7 Active aspirin EC (Ecotrin) 81 MG tablet Take 1 (one) tablet by mouth once daily 2 Active Biotin 10 MG Take by mouth once daily Active Black Cohosh 40 MG Take 1 capsule by mouth once daily Active cyclobenzaprine (Flexeril) 10 MG tablet Take 1 (one) tablet by mouth every 8 hours as needed 2 Active escitalopram (Lexapro) 20 MG tablet Take 1 (one) tablet by mouth once daily 2 Active FLUoxetine (PROzac) 20 MG capsule Take 3 (three) capsules by mouth once daily 1 Active gabapentin (Neurontin) 300 MG capsule Take 2 (two) capsules by mouth 2 times daily 2 Active gabapentin (Neurontin) 600 MG tablet Take 1 (one) tablet by mouth 2 times daily 2 Active ibuprofen (Motrin) 800 MG tablet Take 1 (one) tablet by mouth every 6 hours as needed Active lisinopril (Prinivil; Zestril) 5 MG tablet Take 1 (one) tablet by mouth once daily 2 Active meloxicam (Mobic) 15 MG tablet Take 1 (one) tablet by mouth once daily 2 Active Multiple Vitamins-Minera ls (Hair/Skin/Nail s/Biotin) TABS Take 1 (one) tablet by mouth Active [place]-3 Fatty Acids ([place]-3 Fish Oil) 1000 MG capsule Take by mouth once daily Active ondansetron (Zofran) 4 MG tablet TAKE 1 TABLET BY MOUTH EVERY 8 HOURS NEEDED FOR NAUSEA OR VOMITING 2 Active SUMAtriptan (Imitrex) 25 MG tablet Take 1 (one) tablet by mouth as needed 1 Active traZODone (Desyrel) 150 MG tablet Take 1 (one) tablet by mouth at bedtime 2 Active dicyclomine (Bentyl) 10 MG capsule TAKE 1 CAPSULE BY MOUTH 4 TIMES DAILY 3 Active amLODIPine (Norvasc) 5 MG tablet Take 1 (one) tablet by mouth once daily 30 tablet 3 Active Social History Tobacco Use Types Packs/Day Years Used Date Smoking Tobacco: Every Day Cigarettes Tobacco Cessation:Ready to Q uit: Not Asked; Counseling Given: Not Answered Alcohol Use Standard Drinks/Week Comments Yes 0 (1 standard drink = 0.6 oz pur e alcohol) 1-2 drinks per week Comments Unknown Sex and Gender Information Value Date Recorded Sex Assigned at Not on file Legal Sex Female 5:16 AM PACKAGING SALES CONSULTANT Gender Identity Not on file Sexual Orientation [...] 1:43 PM CDT Height 160 cm (5' 3) 11/20/2022 1:43 PM CDT Body Mass Index 20.19 11/20/2022 1:43 PM CDT Plan of Treatment Health Maintenance Due Date Last Done Comments SHAE (AGES 45-75) - COL ON CA SCREENING 1964 COLON MONITORING 1964 COLONOSCOPY - COLON CA SCREENING 1964 CT COLONOGRAPHY - COLON CA SCREENING 1964 Colorectal Cancer Screening 1964 FIT - COLON CA SCREENING 1964 FLEX SIG - COLON CA SCREENING 1964 LIPID TESTING 1964 MAMMOGRAM 1964 HIV SCREENING 09/13/1979 HEPATITIS C SCREENING 09/08/1982 DTAP/TDAP/TD VACCINES (1 - Tdap) 09/13/1983 PNEUMOCOCCAL VACCINE 50+ (1 of 2 - PCV) 09/13/1983 ZOSTER VACCINE (1 of 2) 2014 DEPRESSION SCREENING 02/25/2024 MEDICARE AWV CALENDAR YEAR 2024 COVID-19 VACCINE (2 - 2024-2 6 season) 2024 05/25/2020 INFLUENZA VACCINE (#1) 2024 8, 11/23/2015 Respiratory Syncytial Virus (RSV) Vaccine Pt: or over 60 yrs (1 - 1-dose 75+ series) 09/13/2039 HEPATITIS B VACCINE Aged Out No longe r eligible based on patient's age to complete this topic HIB VACCINE Aged Out No longer eligi ble based on patient's age to complete this topic HPV VACCINE Aged Out No longer eligi ble based on patient's age to complete this topic MENINGOCOCCAL (Group B) VACCINE SHARED DECISION-MAKING Aged Out No longer eligible based on patient's age to complete this topic MENINGOCOCCAL GROUPS A/C/Y/W VACCINE Aged Out No longer eligible b ased on patient's age to complete this topic Insurance [facility] MANAGED MEDICARE ADV Care Teams Parts Lister Relationship Specialty Start Date End Date Patti Springer APRN-RETAIL ANALYST PCP - General Nurse Practitioner 03/22/22
[2025-01-18] MEDS: LACTATED RINGERS 1,000 ML 999 ML IV CONT (15:59)
[2025-01-18] MEDS: HYDROmorphone HCL INJ (*CRX) 1 MG/ML SYR 0.5 MG IV PUSH (15:59)
[2025-01-18 16:01] VITALS: BP 169/99; PULSE 77; RESP 16; O2SAT 97
--- OUTSIDE RECORDS SUMMARY | 2025-01-18 17:14 | XMS_ITS | Clinical Summary ---
Author Organization [facility] Address [facility] [place] [address] Care Team Providers Care Grey Stock Recorder Name Role Phone Kannan Aguirre Primary Care Provider [phone] Allergies Active Allergy Reactions Criticality Noted Date [...] Sex Assigned at Female 03/25/2024 1:21 PM MANAGER MISSION Legal Sex Female 3:39 PM MANAGER MISSION Gender Identity Not on file Sexual Orientation Not on file Last Filed Vital Signs Vital Sign Reading Time Taken Comments Blood Pressure 108/81 03/25/2024 3:41 PM MANAGER MISSION Pulse 67 03/25/2024 3:41 PM MANAGER MISSION Temperature 36.4 C (97.5 F) 03/25/2024 3:41 PM MANAGER MISSION Respiratory Rate 18 03/25/2024 3:41 PM MANAGER MISSION Oxygen Saturation 100% 03/25/2024 3:41 PM MANAGER MISSION Inhaled Oxygen Concentration - - Weight 46.1 kg (101 lb 10.1 oz) 025 12:49 PM MANAGER MISSION Height 157.5 cm (5' 2) 03/25/2024 12:4 9 PM MANAGER MISSION Body Mass Index 18.59 03/25/2024 12:49 PM MANAGER MISSION Plan of Treatment Health Maintenance Due Date [...] independently General No Debbi Lin, RN Insurance [employer] Advance Directives * Full Code (Latest Code Status on File) Date Activated Date Inactivated Comments 05/18/2021 9:56 AM 05/19/2021 7:34 PM Care Teams Grey Stock Recorder Relationship Specialty Start Date End Date Kannan Aguirre DO [address] [address] PCP - General INTERNAL MEDICINE 05/17/21
--- OUTSIDE RECORDS SUMMARY | 2025-01-18 17:14 | XMS_ITS | Clinical Summary ---
Author Organization [facility] Address [address] [place] [address] Care Team Providers Care Padded Products Inspector Trimmer Name Role Phone Patti Springer AMARA-X RAY SERVICE TECHNICIAN Primary Care Provider [phone] Source Comments [facility],non-owned Affiliates and Associated Physician Practices is amultiple site organization consisting of ambulatory clinics and hospital sitesin [place], [place]. This disclosure is being madepursuant to the Care Everywhere program and may not contain all information available regarding this patient. 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
[2025-01-18 17:17] VITALS: BP 177/95; PULSE 56; RESP 16; TEMP 36.4; O2SAT 100
== END 2025-01-18 17:18 | disposition home or self-care (01) ==
PROVIDERS: Physician Assistant; Emergency Provider Emergency Medicine
DX: E86.0 Dehydration (principal); M79.7 Fibromyalgia; M19.90 Unspecified osteoarthritis, unspecified site; F32.A Depression, unspecified; J45.909 Unspecified asthma, uncomplicated
CPT/HCPCS: 36415; 71046; 80053; 81001; 85025; 93005; 96361; 96374; 99284; J1171; J7120